=== PATIENT | male | born 1975 | race Caucasian/White ===

== ENCOUNTER 2024-07-25 07:55 | Outpatient (RCR) | payer MEDICAID, SELFPAY ==
[2024-07-25 08:22] VITALS: BP 101/52; PULSE 117; RESP 18; TEMP 36.1; BMI 29.4
--- NOTE | 2024-07-25 10:00 | HP.PCM_ITS ---
History of Present Illness Date of Service: 07/25/24 Chief Complaint: Left foot wound History of Wound: Left foot wound Progress of Wound: Mr. Jefferson is a 49-year-old diabetic male seen at the wound care center today for follow-up evaluation for full-thickness wound to the plantar aspect of the left great toe. Patient was seen in the emergency room on 819 where he was diagnosed with a diabetic foot ulceration due to elevated blood sugar. Patient was mid to the hospital for IV antibiotics. He has since been discharged. He did get consulted by medicine who ordered a x-ray and MRI that are both negative for osteomyelitis at this time. Patient is a diabetic and is uncontrolled. His blood sugar today in office was 246 mg/dL. His A1c is 10.1. Patient is not well educated on blood sugar control. He does see an program director/music director but has not seen them for a long period of time. Blood sugar medication is managed by primary. Educated the patient on the importance of maintaining normal blood sugar. Treatment thus far has been at home he is presenting to wound care center today for evaluation and treatment. Denies trauma. Denies constitutional symptoms. Other pain complaints at this time. [facility] Home Medications ?Medication ?Instructions ?Recorded ?Last Taken ?Type blood-glucose meter,continuous 07/25/24 Unknown History (Dexcom G6 Supervisor [employer]) blood-glucose sensor (Dexcom G7 07/25/24 Unknown History Sensor device) blood-glucose transmitter (Dexcom 07/25/24 Unknown History G6 Transmitter device) cephalexin 500 mg capsule 500 mg PO 07/25/24 Unknown History doxycycline hyclate 100 mg tablet 100 mg PO BID 07/25/24 Unknown History gabapentin 300 mg capsule 300 mg PO BID 07/25/24 Unknown History glipizide 5 mg tablet 5 mg PO BID 07/25/24 Unknown History insulin aspart U-100 100 unit/mL 5 unit subcut TID 07/25/24 Unknown History (3 mL) subcutaneous pen (Novolog FlexPen U-100 Insulin aspart) insulin glargine 100 unit/mL (3 24 unit subcut DAILY 07/25/24 Unknown History mL) subcutaneous pen (Lantus Solostar U-100 Insulin) lisinopril 20 mg tablet 20 mg PO DAILY 07/25/24 Unknown History metoprolol succinate 50 mg 50 mg PO DAILY 07/25/24 Unknown History tablet,extended release 24 hr sertraline 25 mg tablet 25 mg PO DAILY 07/25/24 Unknown History Allergy/AdvReac Type Severity Reaction Status Date / Time No Known Allergies Allergy Verified 07/25/24 08:19 Vital Signs Vital Signs Vital Signs: 07/25/24 08:22 Temperature 97.0 F L Temperature Source Temporal Pulse Rate 117 H Respiratory Rate 18 Blood Pressure 101/52 L Blood Pressure Mean 68 Blood Pressure Source Monitor Blood Pressure Position Semi-Fowlers Blood Pressure Location Left Arm Oxygen Delivery Method Room Air Weight Weight: 103.873 kg Body Mass Index (BMI) 29.4 Physical Exam Narrative Vascular: DP and PT pulse are palpable to the left lower extremity. CFT is brisk. Nonblanchable erythema appreciated to the first metatarsal phalangeal joint at the level of the hallux. Mild proximal streaking is noted. Skin te mperature gradient is warm to warm from proximal ankle to distal digit. Mild focal increase appreciated to the left great toe. Neurological: Light touch intact. Protective sensation is absent. Dermatological: Full-thickness ulceration with probe to bone measuring 0.8 x 0.8 x 0.9 cm to the plantar left hallux. No drainage. Mild malodor. Wound is stable. There is evidence of nonblanchable erythema which has mild proximal streaking noted. Excision debridement down to and including subcutaneous tissue, fascia, muscle and bone to the plantar left hallux with a number 3 mm dermal curette without incident. Predebridement measurement was 0.6 x 0.6 x 0.4 cm. Postdebridement measurement is 0.8 x 0.8 x 0.9 cm. Musculoskeletal: No pain with palpation to the full-thickness wound or with ran ge of motion to the left big toe joint. No pain with calf pressure. Const alert, oriented x3 and no apparent distress Debridement Note Debridement Note Debridement Free Text: Excision debridement down to and including subcutaneous tissue, fascia, muscle and bone to the plantar left hallux with a number 3 mm dermal curette without incident. Predebridement measurement was 0.6 x 0.6 x 0.4 cm. Postdebridement measurement is 0.8 x 0.8 x 0.9 cm. Post-Debridement Measurements and Additional Note: Post-Debridement Measurements/Treatment WC - Nurse 1 - General Ulcer Assessment Start: 07/25/24 08:14 Freq: Status: Active Protocol: WC.LOWEXT Activity Type Activity Date Activity User E-sign Co-sign Detail Recorded Client Recorded Date Recorded By Document 07/25/24 08:22 MIGEL [id number] 07/25/24 08:32 07/25/24 08:22 - Today's Visit Information Type of service Initial Visit Arrival Mode Ambulatory Patient Identification Verified (Name & Yes ) Height and Weight Height 6 ft 2 in Weight 103.873 kg Weight in Pounds 229.0 lbs Weight Measurement Method Estimated by Patient Body Mass Index (BMI) 29.4 BMI Classification Overweight BSA - Norman 2.30 Vital Signs Temperature (97.8 F-99.1 F) 97.0 F L Temperature Source Temporal Pulse Rate (60-100) 117 H Pulse Location Monitor Respiratory Rate (12-18) 18 Respiratory rate source Observation Oxygen Delivery Method Room Air Blood Pressure (90/60-120/80) 101/52 L Blood Pressure Mean 68 Source Monitor Position Semi-Fowlers Blood Pressure Location Left Arm History Since Last Visit- (Skip if this is Patient's initial visit) Left Footwear Regular Shoe Right Footwear Regular Shoe Pain Scale: 0-10 Numeric Is Patient Pain Free? Yes Communication Assessment Preferred language Czech Research Engineer Required No Able to Read Yes Able to Write Yes Communication Tools None Right Hearing Abillity Normal Left Hearing Abillity Normal Visual Assistive Devices Glasses Teaching Assessment Preferences Verbal,Written, Demonstration Barriers to Learning None Readiness To Learn Excellent Willingness to Engage in Self Management High Activies Readiness to Engage in Self Management High Activities Anxiety Level Calm Cooperation Cooperative Perception Coherent Interest in Health Problem Asks Questions Education Importance Acknowledges Need Does Patient Smoke tobacco or other Yes substances Is Patient Diabetic Yes Functional Assessment Recent Decline in Ability to Perform Denies Any Declines Culture/Pentecostalism/Pit Manager Cultural/Pentecostalism Needs that may affect No Treatment Plan Would you allow our hospital videogame designer to No meet you for the purpose of spiritual/ emotional support? Pit Manager to contact place of presybeterian No WC - Nurse 1 - General Ulcer Measurement Start: 07/25/24 08:14 Freq: Status: Active Protocol: Activity Type Activity Date Activity User E-sign Co-sign Detail Recorded Client Recorded Date Recorded By Document 07/25/24 08:22 MIGEL [id number] 07/25/24 08:32 07/25/24 08:22 Wound Center Nurse 1 #1 LT PLANTAR -Current Size (cm) - Length 1 -Current Size (cm) - Width 0.3 -Current Size (cm) - Depth 0.4 -Total Square Cm 0.3 -Date of Last Picture (Recall this 07/25/24 field) -Exudate Amt Small -Exudate Type Serosanguineous -Wound Margin Distinct, Outline Attached -Granulation Amt Small (1-33%) -Granulation Quality Red -Necrosis Amt Large (67-100%) -Necrotic Tissue Type Eschar -Texture (Smliey-wound Skin Appearance) Assessed, Localized Edema -Moisture (Smiley-wound Skin Appearance) Assessed -Color (Smiley-wound Skin Appearance) Assessed, Erythema -Temperature (Smiley-wound Skin No Abnormality Appearance) (Pt Warm) -Tenderness on Palpation (Smiley-wound No Skin Appearance) -Ulcer Cleansing Rinsed/ Irrigated with Saline -Foul Odor after Cleansing No -Anesthetic Used 5% Lidocaine Gel Left Calf (cm) 39.2 Left Ankle (cm) 22.5 WC - Nurse 2 - General Ulcer CM Notes Start: 07/25/24 08:14 Freq: Status: Active Protocol: Activity Type Activity Date Activity User E-sign Co-sign Detail Recorded Client Recorded Date Recorded By Document 07/25/24 08:45 [id number] 07/25/24 08:55 JF 07/25/24 08:45 Wound Center Nurse 2 #1 LT PLANTAR -Time 08:51 -Correct Patient Yes -Correct Side, Site, Position Yes -Correct Procedure Yes -Procedure Performed Yes -Type of Procedure Debridement -Clinical Debridement Bone -Tissue Removed Slough -Post Debridement (cm) - Length 0.8 -Post Debridement (cm) - Width 0.8 -Post Debridement (cm) - Depth 0.9 -Total Square (Post) (cm) 0.64 -Area of Debridement (cm) - Length 0.8 -Area of Debridement (cm) - Width 0.8 -Total Square (Area) (cm) 0.64 -Tunneling No -Undermining/Tunneling No -Circular Undermining No -Wound/Ulcer Outcome Not Healed -Ulcer Cleansing Rinsed/ Irrigated with Saline -Foul Odor after Cleansing No -Bioengineered Tissue No -Bleeding Controlled with Pressure -Treatment Response Procedure Tolerated Well -Offloading Yes -Type of Offloading Surgical Shoe -Debridement - Bone, 1st 20sq cm Yes Pain Scale: 0-10 Numeric Is Patient Pain Free? Yes - Nurse 3 - General Ulcer D/C NN Start: 07/25/24 08:14 Freq: Status: Active Protocol: Activity Type Activity Date Activity User E-sign Co-sign Detail Recorded Client Recorded Date Recorded By Document 07/25/24 09:06 [id number] 07/25/24 09:07 07/25/24 09:06 Wound Care Center Nurse 3 #1 LT PLANTAR -Ulcer Cleansing Not Cleansed -Foul Odor after Cleansing No -Primary Dressing Applied Nugauze, Iodoform 1/4in -Primary Dressing Covered/Secured with Dry Gauze & Roll Gauze, Secured with Tape -Nugauze, Iodoform 1/4in 1 Pain Scale: 0-10 Numeric Is Patient Pain Free? Yes Teaching: Wound Center Dressing wound -Person Taught Patient -Teaching Method Discussion, Demonstration -Response to teaching Verbalize Understanding WC - Visit Discharge Discharge Condition Stable Ambulatory Status Ambulatory Transportation Private Auto Clinical Summary of Care Provided Yes Assessment/Plan Assessment/Plan (1) Non-pressure chronic ulcer of other part of left foot with necrosis of bone: CODE(S): L97.524 - Non-pressure chronic ulcer of other part of left foot with necrosis of bone PLAN: Patient was examined and evaluated. All findings were discussed with the patient. All questions were answered to the patient's satisfaction. Excision debridement down to and including subcutaneous tissue, fascia, muscle and bone to the plantar left hallux with a number 3 mm dermal curette without incident. Predebridement measurement was 0.6 x 0.6 x 0.4 cm. Postdebridement measurement is 0.8 x 0.8 x 0.9 cm. Left extremities were cleaned and patted dry. Culture was taken. The ulceration was dressed with iodoform packing dry sterile dressing and compression wrap. Patient was dispensed from the hospital on oral antibiotics doxycycline and Keflex will take them as written. We will see if antibiotics need to be adjusted when culture returns. I did educate the patient and stressed the need for control blood sugar as he is at risk for an amputation. He does have a past history of right foot amputation and as at a 50-50 risk of losing the left great toe if his blood sugar is not controlled. I did educate him that he lives at 200+ blood sugar with A1c of 10.1% which she was understanding of. After this discussion with the patient he will do his best to maintain a normal walking blood sugar between 100-150 mg/dL. Patient educated on signs and symptoms of worsening infection and where to report at [facility] ER to have Dr. Archibald consulted for intervention. Follow-up at the wound care center with Dr. Archibald in 1 week. (2) Cellulitis of left toe: CODE(S): L03.032 - Cellulitis of left toe (3) Chronic painful diabetic polyneuropathy: CODE(S): E11.42 - Type 2 diabetes mellitus with diabetic polyneuropathy
--- NOTE | 2024-07-26 08:56 | WC ---
PHOTO LT PLANTAR 07/25/24
== END 2024-07-28 23:59 | disposition home or self-care (01) ==
LOC: WC 07:55
PROVIDERS: PCP Student in an Organized Health Care Education/Training Program; Referring Provider Student in an Organized Health Care Education/Training Program; Visit Provider Podiatrist Foot & Ankle Surgery
DX: E11.621 Type 2 diabetes mellitus with foot ulcer (principal); L97.524 Non-pressure chronic ulcer of other part of left foot with necrosis of bone; E11.65 Type 2 diabetes mellitus with hyperglycemia; Z79.4 Long term (current) use of insulin; E11.42 Type 2 diabetes mellitus with diabetic polyneuropathy; Z79.84 Long term (current) use of oral hypoglycemic drugs; L03.032 Cellulitis of left toe
CPT/HCPCS: G0463; 11044; 87070; 87075; 87077; 87186; 87205; 99204; 99214

== ENCOUNTER 2024-08-27 08:15 | Outpatient (RCR) | payer MEDICAID, SELFPAY ==
[2024-07-29 00:56] VITALS: BP 101/52; PULSE 117; RESP 18; TEMP 36.1; BMI 29.4
[2024-08-01 15:13] VITALS: BP 127/85; PULSE 79; RESP 16; TEMP 36.3; BMI 29.4
--- NOTE | 2024-08-01 16:34 | PN.PCM_ITS ---
History of Present Illness Date of Service: 08/01/24 Chief Complaint: Left foot wound History of Wound: Left foot wound Subjective Subjective Mr. Jefferson is a 49-year-old diabetic male presenting to wound care center today for follow-up evaluation of full-thickness wound to the plantar aspect of left great toe. He has finished his antibiotics. He admits to some peeling skin but still redness is present. He has been doing dressing changes. Has been off work for a little bit due to concern for getting oil on his foot and causing a worse infection. Blood sugar well-controlled. Denies trauma. Denies constitutional symptoms. No other pedal complaints at this time. Objective Data Objective Data Vital Signs: Vital Signs Temp Pulse Resp BP O2 Del Method 97.4 F L 79 16 127/85 H Room Air 08/01/24 15:13 08/01/24 15:13 08/01/24 15:13 08/01/24 15:13 08/01/24 15:13 Oxygen Delivery Method Room Air Weight: 103.873 kg Body Mass Index (BMI) 29.4 Physical Exam Narrative Vascular: DP and PT pulse are palpable to the left lower extremity. CFT is brisk. Nonblanchable erythema appreciated to the first metatarsal phalangeal joint at the level of the hallux. Mild proximal streaking is noted, improving. Skin temperature gradient is warm to warm from proximal ankle to distal digit. Mild focal increase appreciated to the left great toe. Neurological: Light touch intact. Protective sensation is absent. Dermatological: Full-thickness ulceration with probe to tendon 0.8 x 0.7 x 1.3 cm to the plantar left hallux. Again wound shows evidence of probe to tendon. There is some slight undermining towards the proximal foot approximately 0.5 cm. Erythema present but improving as well as being blanchable. Excision debridement down to and including subcutaneous tissue, fascia, to the plantar left hallux with a number 3 mm dermal curette without incident. Predebridement measurement was 0.7 x 0.6 x 0.0.8 cm. Postdebridement measurement is 0.8 x 0.7 x 1.3 cm Musculoskeletal: No pain with palpation to the full-thickness wound or with range of motion to the left big toe joint. No pain with calf pressure. Debridement Note Debridement Note Debridement Free Text: Excision debridement down to and including subcutaneous tissue, fascia, to the plantar left hallux with a number 3 mm dermal curette without incident. Predebridement measurement was 0.7 x 0.6 x 0.0.8 cm. Postdebridement measurement is 0.8 x 0.7 x 1.3 cm Post-Debridement Measurements and Additional Note: Post-Debridement Measurements/Treatment - Nurse 1 - General Ulcer Assessment Start: 08/01/24 15:13 Freq: Status: Active Protocol: CHARMAINE Activity Type Activity Date Activity User E-sign Co-sign Detail Recorded Client Recorded Date Recorded By Document 08/01/24 15:13 [facility] [id number] 08/01/24 15:18 [facility] 08/01/24 15:13 WC - Today's Visit Information Type of service Follow-up Visit (Physician/DOMESTIC CLEANER ) Arrival Mode Ambulatory Transfer Assistance None Patient Identification Verified (Name & Yes ) Patient Requires Transmission-Based No Precautions Height and Weight Body Mass Index (BMI) 29.4 BMI Classification Overweight Vital Signs Temperature (97.8 F-99.1 F) 97.4 F L Temperature Source Temporal Pulse Rate (60-100) 79 Pulse Location Monitor Respiratory Rate (12-18) 16 Respiratory rate source Observation Oxygen Delivery Method Room Air Blood Pressure (90/60-120/80) 127/85 H Blood Pressure Mean (mm Hg) 99 Source Monitor Position Sitting Blood Pressure Location Left Arm History Since Last Visit- (Skip if this is Patient's initial visit) Have you changed medications since your Yes last visit? Any new allergies or adverse reactions No Had a fall/change in ADL's that may No increase risk of falls Signs or symptoms of abuse and/or No neglect since last visit Have you been in the hospital since your No last visit? Has dressing in place as prescribed Yes Has compression in place as prescribed N/A Has offloadiing in place as prescribed Yes Experienced any changes in pain level or No management Left Footwear Surgical Shoe with pressure relief insole Right Footwear Regular Shoe Pain Scale: 0-10 Numeric Is Patient Pain Free? Yes - Nurse 1 - General Ulcer Measurement Start: 08/01/24 15:13 Freq: Status: Active Protocol: Activity Type Activity Date Activity User E-sign Co-sign Detail Recorded Client Recorded Date Recorded By Document 08/01/24 15:13 [facility] [id number] 08/01/24 15:18 BMF 08/01/24 15:13 Wound Center Nurse 1 #1 LT PLANTAR -Combined with other wound No -Current Size (cm) - Length 0.7 -Current Size (cm) - Width 0.5 -Current Size (cm) - Depth 0.7 -Total Square Cm 0.35 -Date of Last Picture (Recall this 08/01/24 field) -Photo Taken Yes -Tunneling No -Undermining/Tunneling No -Circular Undermining No -Exudate Amt Medium -Exudate Type Serosanguineous -Wound Margin Distinct, Outline Attached -Granulation Amt Large (67-100%) -Granulation Quality Cornucopia -Slough/Fibrin Yes -Necrosis Amt Small (1-33%) -Necrotic Tissue Type Adherent Slough -Texture (Smiley-wound Skin Appearance) Assessed, Localized Edema ,Scarring -Moisture (Smiley-wound Skin Appearance) Assessed -Color (Smiley-wound Skin Appearance) Assessed, Erythema -Temperature (Smiley-wound Skin No Abnormality Appearance) (Pt Warm) -Tenderness on Palpation (Smiley-wound No Skin Appearance) -Ulcer Cleansing Rinsed/ Irrigated with Saline -Foul Odor after Cleansing No -Anesthetic Used 5% Lidocaine Gel WC - Nurse 2 - General Ulcer CM Notes Start: 08/01/24 15:13 Freq: Status: Active Protocol: Activity Type Activity Date Activity User E-sign Co-sign Detail Recorded Client Recorded Date Recorded By Document 08/01/24 15:38 [id number] 08/01/24 15:40 08/01/24 15:38 Wound Center Nurse 2 -Time 15:38 -Correct Patient Yes -Correct Side, Site, Position Yes -Correct Procedure Yes -Procedure Performed Yes -Type of Procedure Debridement -Clinical Debridement Muscle / Fascia -Tissue Removed Muscle,Fascia -Post Debridement (cm) - Length 0.8 -Post Debridement (cm) - Width 0.7 -Post Debridement (cm) - Depth 1.3 -Total Square (Post) (cm) 0.56 -Area of Debridement (cm) - Length 0.8 -Area of Debridement (cm) - Width 0.7 -Total Square (Area) (cm) 0.56 -Tunneling No -Undermining/Tunneling No -Circular Undermining No -Wound/Ulcer Outcome Not Healed -Ulcer Cleansing Rinsed/ Irrigated with Saline -Foul Odor after Cleansing No -Bioengineered Tissue No -Bleeding Controlled with Pressure -Treatment Response Procedure Tolerated Well -Offloading Yes -Type of Offloading Surgical Shoe -Debridement - Muscle / Fascia, 1st Yes 20sq cm Pain Scale: 0-10 Numeric Is Patient Pain Free? Yes - Nurse 3 - General Ulcer D/C NN Start: 08/01/24 15:13 Freq: Status: Active Protocol: Activity Type Activity Date Activity User E-sign Co-sign Detail Recorded Client Recorded Date Recorded By Document 08/01/24 15:52 DL [id number] 08/01/24 15:54 DL 08/01/24 15:52 Wound Care Center Nurse 3 #1 LT PLANTAR -Ulcer Cleansing Rinsed/ Irrigated with Saline -Foul Odor after Cleansing No -Primary Dressing Applied Nugauze, Iodoform 1/4in -Primary Dressing Covered/Secured with Dry Gauze & Roll Gauze, Secured with Tape -Nugauze, Iodoform 1/4in 1 Treatment Response Procedure Tolerated Well Pain Scale: 0-10 Numeric Is Patient Pain Free? Yes - Visit Discharge Discharge Condition Stable Ambulatory Status Ambulatory Transportation Private Auto Assessment/Plan Assessment/Plan (1) Non-pressure chronic ulcer of other part of left foot with necrosis of muscle: CODE(S): L97.523 - Non-pressure chronic ulcer of other part of left foot with necrosis of muscle PLAN: Patient was examined and evaluated. All findings were discussed with the patient. All questions were answered to the patient's satisfaction. Excision debridement down to and including subcutaneous tissue, fascia, to the plantar left hallux with a number 3 mm dermal curette without incident. Predebridement measurement was 0.7 x 0.6 x 0.0.8 cm. Postdebridement measurement is 0.8 x 0.7 x 1.3 cm. The left foot was wiped clean and patted dry. The area was dressed with Betadine paint, dry sterile dressing and compression wrap. Educated patient to be weightbearing as tolerated until follow-up. Patient will given a work note to be dismissed until Tuesday. Review of the patient's cultures show evidence of 2 microbes that grew that were not covered under his Keflex and doxycycline. The patient will be placed on 600 mg of linezolid twice daily for 2 weeks. Will need a preauthorization through his insurance. Long discussion with the patient regarding the risk for possible amputation due to infection possibly getting worse which she was understanding of. It was conveyed to the patient that we will do everything in our power to keep his left great toe but due to his diabetes and the extent of the infection we will have to take this on as a week by week basis with new oral antibiotics. Follow-up at the wound care center with Dr. Archibald in 1 week. (2) Cellulitis of left toe: CODE(S): L03.032 - Cellulitis of left toe (3) Chronic painful diabetic polyneuropathy: CODE(S): E11.42 - Type 2 diabetes mellitus with diabetic polyneuropathy
[2024-08-08 14:56] VITALS: BP 152/80; PULSE 93; RESP 18; TEMP 36.2; BMI 29.4
--- NOTE | 2024-08-08 16:41 | PCM.WC.PN ---
History of Present Illness Date of Service: 08/08/24 Chief Complaint: Left foot wound History of Wound: Left foot wound Subjective Subjective Mr. Jefferson is a 49-year-old diabetic male presenting to wound care center today for follow-up evaluation of full-thickness wound to the plantar aspect of left great toe. Patient still waiting for authorization for linezolid antibiotics. He has been doing dressing changes. Patient is now on short-term disability for 13 weeks. Blood sugar well-controlled. Denies trauma. Denies constitutional symptoms. No other pedal complaints at this time. Objective Data Objective Data Vital Signs: Vital Signs Temp Pulse Resp BP O2 Del Method 97.2 F L 93 18 152/80 H Room Air 08/08/24 14:56 08/08/24 14:56 08/08/24 14:56 08/08/24 14:56 08/08/24 14:56 Oxygen Delivery Method Room Air Weight: 103.873 kg Body Mass Index (BMI) 29.4 Physical Exam Narrative Vascular: DP and PT pulse are palpable to the left lower extremity. CFT is brisk. Nonblanchable erythema appreciated to the first metatarsal phalangeal joint at the level of the hallux. Mild proximal streaking is noted, improving. Skin temperature gradient is warm to warm from proximal ankle to distal digit. Mild focal increase appreciated to the left great toe. Neurological: Light touch intact. Protective sensation is absent. Dermatological: Full-thickness ulceration with probe to tendon 0.8 x 0.7 x 1.4 cm to the plantar left hallux. Again wound shows evidence of probe to muscle. There is some slight undermining towards the proximal foot, improving. Erythema present but improving as well as being blanchable. Excision debridement down to and including subcutaneous tissue, fascia and muscle to the plantar left hallux with a number 3 mm dermal curette without incident. Predebridement measurement was 0.7 x 0.6 x 1.2 cm. Postdebridement measurement is 0.8 x 0.7 x 1.4 cm Musculoskeletal: No pain with palpation to the full-thickness wound or with range of motion to the left big toe joint. No pain with calf pressure. Debridement Note Debridement Note Debridement Free Text: Excision debridement down to and including subcutaneous tissue, fascia and muscle to the plantar left hallux with a number 3 mm dermal curette without incident. Predebridement measurement was 0.7 x 0.6 x 1.2 cm. Postdebridement measurement is 0.8 x 0.7 x 1.4 cm Post-Debridement Measurements and Additional Note: Post-Debridement Measurements/Treatment WC - Nurse 1 - General Ulcer Assessment Start: 08/01/24 15:13 Freq: Status: Active Protocol: WC.LOWEXT Activity Type Activity Date Activity User E-sign Co-sign Detail Recorded Client Recorded Date Recorded By Document 08/01/24 15:13 [facility] [id number] 08/01/24 15:18 [facility] Document 08/08/24 14:56 KW [id number] 08/08/24 15:01 KW 08/01/24 08/08/24 15:13 14:56 WC - Today's Visit Information Type of service Follow-up Visit Follow-up Visit (Physician/JEWEL HOLE CORNERER (Physician/JEWEL HOLE CORNERER ) ) Arrival Mode Ambulatory Ambulatory Transfer Assistance None Patient Identification Verified (Name & Yes Yes ) Patient Requires Transmission-Based No Precautions Height and Weight Body Mass Index (BMI) 29.4 29.4 BMI Classification Overweight Overweight Vital Signs Temperature (97.8 F-99.1 F) 97.4 F L 97.2 F L Temperature Source Temporal Temporal Pulse Rate (60-100) 79 93 Pulse Location Monitor Monitor Respiratory Rate (12-18) 16 18 Respiratory rate source Observation Observation Oxygen Delivery Method Room Air Room Air Blood Pressure (90/60-120/80) 127/85 H 152/80 H Blood Pressure Mean (mm Hg) 99 104 Source Monitor Monitor Position Sitting Semi-Fowlers Blood Pressure Location Left Arm Left Arm History Since Last Visit- (Skip if this is Patient's initial visit) Have you changed medications since your Yes No last visit? Any new allergies or adverse reactions No No Had a fall/change in ADL's that may No No increase risk of falls Signs or symptoms of abuse and/or No No neglect since last visit Have you been in the hospital since your No No last visit? Has dressing in place as prescribed Yes Yes Has compression in place as prescribed N/A Yes Has offloadiing in place as prescribed Yes Yes Experienced any changes in pain level or No No management Left Footwear Surgical Shoe Surgical Shoe with pressure with pressure relief insole relief insole Right Footwear Regular Shoe Regular Shoe Pain Scale: 0-10 Numeric Is Patient Pain Free? Yes No lt foot -Description Sharp - Nurse 1 - General Ulcer Measurement Start: 08/01/24 15:13 Freq: Status: Active Protocol: Activity Type Activity Date Activity User E-sign Co-sign Detail Recorded Client Recorded Date Recorded By Document 08/01/24 15:13 [facility] [id number] 08/01/24 15:18 [facility] Document 08/08/24 14:56 [id number] 08/08/24 15:01 08/01/24 08/08/24 15:13 14:56 Wound Center Nurse 1 #1 LT PLANTAR -Combined with other wound No -Current Size (cm) - Length 0.7 0.7 -Current Size (cm) - Width 0.5 0.8 -Current Size (cm) - Depth 0.7 1.3 -Total Square Cm 0.35 0.56 -Date of Last Picture (Recall this 08/01/24 08/08/24 field) -Photo Taken Yes -Tunneling No -Undermining/Tunneling No -Circular Undermining No -Exudate Amt Medium Small -Exudate Type Serosanguineous Serosanguineous -Wound Margin Distinct, Distinct, Outline Outline Attached Attached -Granulation Amt Large (67-100%) Large (67-100%) -Granulation Quality [place] -Slough/Fibrin Yes -Necrosis Amt Small (1-33%) -Necrotic Tissue Type Adherent Slough -Texture (Smiley-wound Skin Appearance) Assessed, Assessed,Callus Localized Edema ,Scarring -Moisture (Smiley-wound Skin Appearance) Assessed Assessed -Color (Smiley-wound Skin Appearance) Assessed, Assessed Erythema -Temperature (Smiley-wound Skin No Abnormality No Abnormality Appearance) (Pt Warm) (Pt Warm) -Tenderness on Palpation (Smiley-wound No No Skin Appearance) -Ulcer Cleansing Rinsed/ Rinsed/ Irrigated with Irrigated with Saline Saline -Foul Odor after Cleansing No No -Anesthetic Used 5% Lidocaine 5% Lidocaine Gel Gel - Nurse 2 - General Ulcer CM Notes Start: 08/01/24 15:13 Freq: Status: Active Protocol: Activity Type Activity Date Activity User E-sign Co-sign Detail Recorded Client Recorded Date Recorded By Document 08/01/24 15:38 [id number] 08/01/24 15:40 Document 08/08/24 15:15 [id number] 08/08/24 15:17 JF 08/01/24 08/08/24 15:38 15:15 Wound Center Nurse 2 #1 LT PLANTAR -Time 15:38 15:16 -Correct Patient Yes Yes -Correct Side, Site, Position Yes Yes -Correct Procedure Yes Yes -Procedure Performed Yes Yes -Type of Procedure Debridement Debridement -Clinical Debridement Muscle / Fascia Muscle / Fascia -Tissue Removed Muscle,Fascia Muscle,Fascia -Post Debridement (cm) - Length 0.8 0.8 -Post Debridement (cm) - Width 0.7 0.7 -Post Debridement (cm) - Depth 1.3 1.4 -Total Square (Post) (cm) 0.56 0.56 -Area of Debridement (cm) - Length 0.8 0.8 -Area of Debridement (cm) - Width 0.7 0.7 -Total Square (Area) (cm) 0.56 0.56 -Tunneling No No -Undermining/Tunneling No No -Circular Undermining No No -Wound/Ulcer Outcome Not Healed Not Healed -Ulcer Cleansing Rinsed/ Rinsed/ Irrigated with Irrigated with Saline Saline -Foul Odor after Cleansing No No -Bioengineered Tissue No No -Bleeding Controlled with Pressure Pressure -Treatment Response Procedure Procedure Tolerated Well Tolerated Well -Offloading Yes Yes -Type of Offloading Surgical Shoe Surgical Shoe -Debridement - Muscle / Fascia, 1st Yes Yes 20sq cm Pain Scale: 0-10 Numeric Is Patient Pain Free? Yes Yes - Nurse 3 - General Ulcer D/C NN Start: 08/01/24 15:13 Freq: Status: Active Protocol: Activity Type Activity Date Activity User E-sign Co-sign Detail Recorded Client Recorded Date Recorded By Document 08/01/24 15:52 DL [id number] 08/01/24 15:54 DL Document 08/08/24 15:37 [facility] [id number] 08/08/24 15:37 [facility] 08/01/24 08/08/24 15:52 15:37 Wound Care Center Nurse 3 #1 LT PLANTAR -Ulcer Cleansing Rinsed/ Rinsed/ Irrigated with Irrigated with Saline Saline -Foul Odor after Cleansing No No -Primary Dressing Applied Nugauze, Aquacel AG 2x2 Iodoform 1/4in -Primary Dressing Covered/Secured with Dry Gauze & Dry Gauze & Roll Gauze, Roll Gauze, Secured with Secured with Tape Tape -MOLOMEel AG 2x2 1 -Nugauze, Iodoform 1/4in 1 Treatment Response Procedure Procedure Tolerated Well Tolerated Well Pain Scale: 0-10 Numeric Is Patient Pain Free? Yes Yes WC - Visit Discharge Discharge Condition Stable Stable Ambulatory Status Ambulatory Ambulatory Transportation Private Auto Private Auto Assessment/Plan Assessment/Plan (1) Non-pressure chronic ulcer of other part of left foot with necrosis of muscle: CODE(S): L97.523 - Non-pressure chronic ulcer of other part of left foot with necrosis of muscle PLAN: Patient was examined and evaluated. All findings were discussed with the patient. All questions were answered to the patient's satisfaction. Excision debridement down to and including subcutaneous tissue, fascia and muscle to the plantar left hallux with a number 3 mm dermal curette without incident. Predebridement measurement was 0.7 x 0.6 x 1.2 cm. Postdebridement measurement is 0.8 x 0.7 x 1.4 cm Due to the delay in authorization for linezolid antibiotic. The patient will be placed on Levaquin 1 pill daily for the next 2 weeks. Educated the patient that we will sign a note for his work for him to be off for the next 13 weeks and reevaluate at the end of that time. All paperwork will be filled out once received at the wound care center private office. Patient will continue with dressing changes as discussed. We will begin authorization for an MRI due to nonhealing chronic ulceration to the left hallux with concerns of osteomyelitis, for surgical planning. Follow-up at the wound care center with Dr. Archibald in 1 week. (2) Cellulitis of left toe: CODE(S): L03.032 - Cellulitis of left toe (3) Chronic painful diabetic polyneuropathy: CODE(S): E11.42 - Type 2 diabetes mellitus with diabetic polyneuropathy (4) Osteomyelitis of toe of left foot: CODE(S): M86.9 - Osteomyelitis, unspecified
[2024-08-15 08:11] VITALS: BP 134/94; PULSE 82; RESP 16; TEMP 35.8; BMI 29.4
--- NOTE | 2024-08-15 08:35 | PCM.WC.PN ---
History of Present Illness Date of Service: 08/15/24 Chief Complaint: Left foot wound History of Wound: Left foot wound Subjective Subjective Mr. Jefferson is a 49-year-old diabetic male presenting to wound care center today for follow-up evaluation of left hallux full-thickness wound. Patient is on his oral antibiotic taken as written. He is getting some diarrhea but overall improving. He admits the redness is improving. Denies any pain to the left foot. Blood sugar well-controlled. Denies trauma. Denies constitutional symptoms. No other pedal complaints at this time. Objective Data Objective Data Vital Signs: Vital Signs Temp Pulse Resp BP O2 Del Method 96.5 F L 82 16 134/94 H Room Air 08/15/24 08:11 08/15/24 08:11 08/15/24 08:11 08/15/24 08:11 08/15/24 08:11 Oxygen Delivery Method Room Air Weight: 103.873 kg Body Mass Index (BMI) 29.4 Physical Exam Narrative Neurovascular status is unchanged his previous visit. Evidence of improved erythema to the left foot at the level of the left hallux. Erythema is blanchable. Skin temperature gradient is warm to warm from proximal ankle to distal digit. No focal increase is appreciated. Full-thickness wound to the plantar aspect of the left hallux measuring 0.9 x 0.7 x 1 1.3 cm. Positive probe to bone. No active drainage noted. No pain with calf pressure. Excisional debridement down to and including subcutaneous tissue, fascia, muscle and bone with a number 3 mm dermal curette to the left plantar ulceration at the level of the hallux. Predebridement measurement was 0.8 x 0.6 x 1.0 cm. Postdebridement measurement is 0.9 x 0.7 x 1.3 cm. Debridement Note Debridement Note Debridement Free Text: Excisional debridement down to and including subcutaneous tissue, fascia, muscle and bone with a number 3 mm dermal curette to the left plantar ulceration at the level of the hallux. Predebridement measurement was 0.8 x 0.6 x 1.0 cm. Postdebridement measurement is 0.9 x 0.7 x 1.3 cm. Post-Debridement Measurements and Additional Note: Post-Debridement Measurements/Treatment WC - Nurse 1 - General Ulcer Assessment Start: 08/01/24 15:13 Freq: Status: Active Protocol: WC.LOWEXT Activity Type Activity Date Activity User E-sign Co-sign Detail Recorded Client Recorded Date Recorded By Document 08/01/24 15:13 [facility] [id number] 08/01/24 15:18 [facility] Document 08/08/24 14:56 [id number] 08/08/24 15:01 KW Document 08/15/24 08:11 [id number] 08/15/24 08:16 08/01/24 08/08/24 08/15/24 15:13 14:56 08:11 - Today's Visit Information Type of service Follow-up Visit Follow-up Visit Follow-up Visit (Physician/GLUER MACHINE SETUP OPERATOR (Physician/GLUER MACHINE SETUP OPERATOR (Physician/GLUER MACHINE SETUP OPERATOR ) ) ) Arrival Mode Ambulatory Ambulatory Ambulatory Transfer Assistance None None Patient Identification Verified (Name & Yes Yes Yes ) Patient Requires Transmission-Based No No Precautions Height and Weight Body Mass Index (BMI) 29.4 29.4 29.4 BMI Classification Overweight Overweight Overweight Vital Signs Temperature (97.8 F-99.1 F) 97.4 F L 97.2 F L 96.5 F L Temperature Source Temporal Temporal Temporal Pulse Rate (60-100) 79 93 82 Pulse Location Monitor Monitor Monitor Respiratory Rate (12-18) 16 18 16 Respiratory rate source Observation Observation Observation Oxygen Delivery Method Room Air Room Air Room Air Blood Pressure (90/60-120/80) 127/85 H 152/80 H 134/94 H Blood Pressure Mean (mm Hg) 99 104 107 Source Monitor Monitor Monitor Position Sitting Semi-Fowlers Sitting Blood Pressure Location Left Arm Left Arm Right Arm History Since Last Visit- (Skip if this is Patient's initial visit) Have you changed medications since your Yes No No last visit? Any new allergies or adverse reactions No No No Had a fall/change in ADL's that may No No No increase risk of falls Signs or symptoms of abuse and/or No No No neglect since last visit Have you been in the hospital since your No No No last visit? Has dressing in place as prescribed Yes Yes Yes Has compression in place as prescribed N/A Yes N/A Has offloadiing in place as prescribed Yes Yes Yes Experienced any changes in pain level or No No No management Left Footwear Surgical Shoe Surgical Shoe Surgical Shoe with pressure with pressure with pressure relief insole relief insole relief insole Right Footwear Regular Shoe Regular Shoe Regular Shoe Pain Scale: 0-10 Numeric Is Patient Pain Free? Yes No No lt foot -Description Sharp Aching -Intensity 2 -Duration (hours) Chronic -Pain Behavior No Change in Behavior -Alleviating Factors/Interventions Will continue to monitor WC - Nurse 1 - General Ulcer Measurement Start: 08/01/24 15:13 Freq: Status: Active Protocol: Activity Type Activity Date Activity User E-sign Co-sign Detail Recorded Client Recorded Date Recorded By Document 08/01/24 15:13 [facility] [id number] 08/01/24 15:18 BM Document 08/08/24 14:56 KW [id number] 08/08/24 15:01 KW Document 08/15/24 08:11 GM [id number] 08/15/24 08:16 08/01/24 08/08/24 08/15/24 15:13 14:56 08:11 Wound Center Nurse 1 #1 LT PLANTAR -Combined with other wound No No -Current Size (cm) - Length 0.7 0.7 0.8 -Current Size (cm) - Width 0.5 0.8 0.6 -Current Size (cm) - Depth 0.7 1.3 1.0 -Total Square Cm 0.35 0.56 0.48 -Date of Last Picture (Recall this 08/01/24 08/08/24 field) -Photo Taken Yes No -Epithelialization None Present -Tunneling No No -Undermining/Tunneling No No -Circular Undermining No Yes -Exudate Amt Medium Small Medium -Exudate Type Serosanguineous Serosanguineous Serosanguineous -Wound Margin Distinct, Distinct, Distinct, Outline Outline Outline Attached Attached Attached -Granulation Amt Large (67-100%) Large (67-100%) Small (1-33%) -Granulation Quality [place] -Slough/Fibrin Yes No -Necrosis Amt Small (1-33%) None Present (0 %) -Necrotic Tissue Type Adherent Slough -Texture (Smiley-wound Skin Appearance) Assessed, Assessed,Callus Assessed, Localized Edema Localized Edema ,Scarring -Moisture (Smiley-wound Skin Appearance) Assessed Assessed Assessed -Color (Smiley-wound Skin Appearance) Assessed, Assessed Assessed, Erythema Erythema -Temperature ([place]-wound Skin No Abnormality No Abnormality Appearance) (Pt Warm) (Pt Warm) -Tenderness on Palpation (Smiley-wound No No Skin Appearance) -Ulcer Cleansing Rinsed/ Rinsed/ Irrigated with Irrigated with Saline Saline -Foul Odor after Cleansing No No -Anesthetic Used 5% Lidocaine 5% Lidocaine Gel Gel WC - Nurse 2 - General Ulcer CM Notes Start: 08/01/24 15:13 Freq: Status: Active Protocol: Activity Type Activity Date Activity User E-sign Co-sign Detail Recorded Client Recorded Date Recorded By Document 08/01/24 15:38 [id number] 08/01/24 15:40 Document 08/08/24 15:15 [id number] 08/08/24 15:17 Document 08/15/24 08:31 [id number] 08/15/24 08:33 08/01/24 08/08/24 08/15/24 15:38 15:15 08:31 Wound Center Nurse 2 #1 LT PLANTAR -Time 15:38 15:16 08:31 -Correct Patient Yes Yes Yes -Correct Side, Site, Position Yes Yes Yes -Correct Procedure Yes Yes Yes -Procedure Performed Yes Yes Yes -Type of Procedure Debridement Debridement Debridement -Clinical Debridement Muscle / Fascia Muscle / Fascia Bone -Tissue Removed Muscle,Fascia Muscle,Fascia Non-viable tissue -Post Debridement (cm) - Length 0.8 0.8 0.9 -Post Debridement (cm) - Width 0.7 0.7 0.7 -Post Debridement (cm) - Depth 1.3 1.4 1.3 -Total Square (Post) (cm) 0.56 0.56 0.63 -Area of Debridement (cm) - Length 0.8 0.8 0.9 -Area of Debridement (cm) - Width 0.7 0.7 0.7 -Total Square (Area) (cm) 0.56 0.56 0.63 -Tunneling No No No -Undermining/Tunneling No No No -Circular Undermining No No No -Wound/Ulcer Outcome Not Healed Not Healed Not Healed -Ulcer Cleansing Rinsed/ Rinsed/ Rinsed/ Irrigated with Irrigated with Irrigated with Saline Saline Saline -Foul Odor after Cleansing No No No -Bioengineered Tissue No No No -Bleeding Controlled with Pressure Pressure Pressure -Treatment Response Procedure Procedure Procedure Tolerated Well Tolerated Well Tolerated Well -Offloading Yes Yes Yes -Type of Offloading Surgical Shoe Surgical Shoe Surgical Shoe -Debridement - Muscle / Fascia, 1st Yes Yes 20sq cm -Debridement - Bone, 1st 20sq cm Yes Pain Scale: 0-10 Numeric Is Patient Pain Free? Yes Yes Yes - Nurse 3 - General Ulcer D/C NN Start: 08/01/24 15:13 Freq: Status: Active Protocol: Activity Type Activity Date Activity User E-sign Co-sign Detail Recorded Client Recorded Date Recorded By Document 08/01/24 15:52 DL [id number] 08/01/24 15:54 DL Document 08/08/24 15:37 [facility] [id number] 08/08/24 15:37 [facility] 08/01/24 08/08/24 15:52 15:37 Wound Care Center Nurse 3 #1 LT PLANTAR -Ulcer Cleansing Rinsed/ Rinsed/ Irrigated with Irrigated with Saline Saline -Foul Odor after Cleansing No No -Primary Dressing Applied Nugauze, Aquacel AG 2x2 Iodoform 1/4in -Primary Dressing Covered/Secured with Dry Gauze & Dry Gauze & Roll Gauze, Roll Gauze, Secured with Secured with Tape Tape -Aquacel AG 2x2 1 -Nugauze, Iodoform 1/4in 1 Treatment Response Procedure Procedure Tolerated Well Tolerated Well Pain Scale: 0-10 Numeric Is Patient Pain Free? Yes Yes - Visit Discharge Discharge Condition Stable Stable Ambulatory Status Ambulatory Ambulatory Transportation Private Auto Private Auto Assessment/Plan Assessment/Plan (1) Non-pressure chronic ulcer of other part of left foot with necrosis of bone: CODE(S): L97.524 - Non-pressure chronic ulcer of other part of left foot with necrosis of bone PLAN: Patient was examined and evaluated. All findings were discussed with the patient. All questions were answered to the patient's satisfaction. Excisional debridement down to and including subcutaneous tissue, fascia, muscle and bone with a number 3 mm dermal curette to the left plantar ulceration at the level of the hallux. Predebridement measurement was 0.8 x 0.6 x 1.0 cm. Postdebridement measurement is 0.9 x 0.7 x 1.3 cm. Left lower extremities were cleaned and patted dry. Iodoform packing was placed into the ulceration followed by dry sterile dressing and compression wrap. Patient will do daily dressing changes as above which she is understanding of. Patient will have his left foot MRI next Tuesday. Will make definitive plan after MRI results PICC line IV antibiotic versus amputation. Follow-up at the wound care center with Dr. Archibald in 1 week. (2) Osteomyelitis of toe of left foot: CODE(S): M86.9 - Osteomyelitis, unspecified
--- NOTE | 2024-08-20 15:30 | MRI_ITS ---
STUDY: MRI LEFT FOOT WITHOUT CONTRAST REASON FOR EXAM: Male, 49 years old. L PLANTAR ULCER, L 1ST METATARSAL HEAD TECHNIQUE: Standardized fat and water weighted pulse sequences were obtained in all 3 orthogonal planes. COMPARISON: None. FINDINGS: A skin marker was placed along the plantar medial aspect of the base of the great toe. There is focal skin ulceration just plantar medial to the proximal phalanx of the great toe. Normal bone marrow of the tarsals, metatarsals, phalanges and visualized distal tibia/fibula, without osteomyelitis, fracture, periostitis, erosions or reactive bone edema. Normal sesamoids without sesamoiditis, fracture or avascular necrosis. Normal joint spaces, without effusions. There are no extraarticular fluid collections. Normal visualized [place]art and Lisfranc joints and normal Lisfranc ligament. Normal intermetatarsal spaces without intermetatarsal (Heard) neuroma or bursitis. Normal visualized distal posterior tibialis tendon. Normal visualized distal anterior tibialis tendon. Normal visualized distal peroneus longus and brevis tendons. Normal visualized extensor digitorum longus, extensor hallucis longus, flexor digitorum brevis and flexor hallucis longus tendons. Normal visualized plantar fascia without fasciitis, fibromatosis or tear. There is mild generalized edema of the intrinsic muscles of the foot. There is mild subcutaneous soft tissue edema along the dorsum of the foot. MRI/Lower Ext/No Jt/w/o IMPRESSION: Focal skin ulceration just plantar medial to the proximal phalanx of the great toe. Mild generalized edema of the intrinsic muscles of the foot. Mild subcutaneous soft tissue edema along the dorsum of the foot. No evidence of osteomyelitis. Electronically Signed: Bay Mathur MD at 13:09 EDT ,
[2024-08-22 08:05] VITALS: BP 189/114; PULSE 66; RESP 18; TEMP 35.7; BMI 29.4
--- NOTE | 2024-08-22 08:38 | PCM.WC.PN ---
History of Present Illness Date of Service: 08/22/24 Chief Complaint: Left foot wound History of Wound: Left foot wound Progress of Wound: Mr. Jefferson is a 49-year-old diabetic male presenting with care center today for follow-up evaluation of full-thickness wound to the plantar aspect of the left hallux. Patient received his MRI last week and is here for results. He is also here to evaluate the full-thickness wound. He has been doing dressing changes as instructed. He does admit to elevated blood sugar readings with his Dexcom device. He admits the redness has improved. Denies any new trauma. Denies constitutional symptoms. Other pedal complaints at this time. Objective Data Objective Data Vital Signs: Vital Signs Temp Pulse Resp BP O2 Del Method 96.3 F L 66 18 189/114 H Room Air 08/22/24 08:05 08/22/24 08:05 08/22/24 08:05 08/22/24 08:05 08/22/24 08:05 Oxygen Delivery Method Room Air Weight: 103.873 kg Body Mass Index (BMI) 29.4 Radiography Diagnostic Testing: Radiology Impression Lower Extremity MRI 08/20/24 15:30 IMPRESSION: Focal skin ulceration just plantar medial to the proximal phalanx of the great toe. Mild generalized edema of the intrinsic muscles of the foot. Mild subcutaneous soft tissue edema along the dorsum of the foot. No evidence of osteomyelitis. Electronically Signed: Bay Mathur MD at 13:09 EDT Reading Location ID and State: [facility] / [place] , Service support , Physical Exam Narrative Neurovascular status is unchanged his previous visit. Evidence of improved erythema to the left foot at the level of the left hallux. Erythema is blanchable. Skin temperature gradient is warm to warm from proximal ankle to distal digit. No focal increase is appreciated. Full-thickness wound to the plantar aspect of the left hallux measuring 0.8 x 0.8 x 1.3 cm. Positive probe to muscle. No active drainage noted. No pain with calf pressure. Excisional debridement down to and including subcutaneous tissue, fascia, muscle and bone with a number 3 mm dermal curette to the left plantar ulceration at the level of the hallux. Predebridement measurement was 0.7 x 0.7 x 1.0 cm. Postdebridement measurement is 0.8 x 0.8 x 1.3 cm. Debridement Note Debridement Note Debridement Free Text: Excisional debridement down to and including subcutaneous tissue, fascia, muscle and bone with a number 3 mm dermal curette to the left plantar ulceration at the level of the hallux. Predebridement measurement was 0.7 x 0.7 x 1.0 cm. Postdebridement measurement is 0.8 x 0.8 x 1.3 cm. Post-Debridement Measurements and Additional Note: Post-Debridement Measurements/Treatment - Nurse 1 - General Ulcer Assessment Start: 08/01/24 15:13 Freq: Status: Active Protocol: CHARMAINE Activity Type Activity Date Activity User E-sign Co-sign Detail Recorded Client Recorded Date Recorded By Document 08/01/24 15:13 [facility] [id number] 08/01/24 15:18 [facility] Document 08/08/24 14:56 KW [id number] 08/08/24 15:01 KW Document 08/15/24 08:11 [id number] 08/15/24 08:16 Document 08/22/24 08:05 GM [id number] 08/22/24 08:12 GM 08/01/24 08/08/24 08/15/24 15:13 14:56 08:11 - Today's Visit Information Type of service Follow-up Visit Follow-up Visit Follow-up Visit (Physician/SOFTWARE PROJECT LEAD (Physician/SOFTWARE PROJECT LEAD (Physician/SOFTWARE PROJECT LEAD ) ) ) Arrival Mode Ambulatory Ambulatory Ambulatory Transfer Assistance None None Patient Identification Verified (Name & Yes Yes Yes ) Patient Requires Transmission-Based No No Precautions Height and Weight Body Mass Index (BMI) 29.4 29.4 29.4 BMI Classification Overweight Overweight Overweight Vital Signs Temperature (97.8 F-99.1 F) 97.4 F L 97.2 F L 96.5 F L Temperature Source Temporal Temporal Temporal Pulse Rate (60-100) 79 93 82 Pulse Location Monitor Monitor Monitor Respiratory Rate (12-18) 16 18 16 Respiratory rate source Observation Observation Observation Oxygen Delivery Method Room Air Room Air Room Air Blood Pressure (90/60-120/80) 127/85 H 152/80 H 134/94 H Blood Pressure Mean (mm Hg) 99 104 107 Source Monitor Monitor Monitor Position Sitting Semi-Fowlers Sitting Blood Pressure Location Left Arm Left Arm Right Arm History Since Last Visit- (Skip if this is Patient's initial visit) Have you changed medications since your Yes No No last visit? Any new allergies or adverse reactions No No No Had a fall/change in ADL's that may No No No increase risk of falls Signs or symptoms of abuse and/or No No No neglect since last visit Have you been in the hospital since your No No No last visit? Has dressing in place as prescribed Yes Yes Yes Has compression in place as prescribed N/A Yes N/A Has offloadiing in place as prescribed Yes Yes Yes Experienced any changes in pain level or No No No management Left Footwear Surgical Shoe Surgical Shoe Surgical Shoe with pressure with pressure with pressure relief insole relief insole relief insole Right Footwear Regular Shoe Regular Shoe Regular Shoe Pain Scale: 0-10 Numeric Is Patient Pain Free? Yes No No lt foot -Description Sharp Aching -Intensity 2 -Duration (hours) Chronic -Pain Behavior No Change in Behavior -Alleviating Factors/Interventions Will continue to monitor 08/22/24 08:05 WC - Today's Visit Information Type of service Follow-up Visit (Physician/SOFTWARE PROJECT LEAD ) Arrival Mode Ambulatory Transfer Assistance None Patient Identification Verified (Name & Yes ) Patient Requires Transmission-Based No Precautions Height and Weight Body Mass Index (BMI) 29.4 BMI Classification Overweight Vital Signs Temperature (97.8 F-99.1 F) 96.3 F L Temperature Source Temporal Pulse Rate (60-100) 66 Pulse Location Monitor Respiratory Rate (12-18) 18 Respiratory rate source Observation Oxygen Delivery Method Room Air Blood Pressure (90/60-120/80) 189/114 H Blood Pressure Mean (mm Hg) 139 Source Monitor Position Sitting Blood Pressure Location Left Arm History Since Last Visit- (Skip if this is Patient's initial visit) Have you changed medications since your No last visit? Any new allergies or adverse reactions No Had a fall/change in ADL's that may No increase risk of falls Signs or symptoms of abuse and/or No neglect since last visit Have you been in the hospital since your No last visit? Has dressing in place as prescribed Yes Has compression in place as prescribed N/A Has offloadiing in place as prescribed Yes Experienced any changes in pain level or No management Left Footwear Surgical Shoe with pressure relief insole Right Footwear Regular Shoe Pain Scale: 0-10 Numeric Is Patient Pain Free? Yes lt foot -Description -Intensity -Duration (hours) -Pain Behavior -Alleviating Factors/Interventions WC - Nurse 1 - General Ulcer Measurement Start: 08/01/24 15:13 Freq: Status: Active Protocol: Activity Type Activity Date Activity User E-sign Co-sign Detail Recorded Client Recorded Date Recorded By Document 08/01/24 15:13 BM [id number] 08/01/24 15:18 BM Document 08/08/24 14:56 KW [id number] 08/08/24 15:01 KW Document 08/15/24 08:11 GM [id number] 08/15/24 08:16 GM Document 08/22/24 08:05 GM [id number] 08/22/24 08:12 08/01/24 08/08/24 08/15/24 15:13 14:56 08:11 Wound Center Nurse 1 #1 LT PLANTAR -Combined with other wound No No -Current Size (cm) - Length 0.7 0.7 0.8 -Current Size (cm) - Width 0.5 0.8 0.6 -Current Size (cm) - Depth 0.7 1.3 1.0 -Total Square Cm 0.35 0.56 0.48 -Date of Last Picture (Recall this 08/01/24 08/08/24 field) -Photo Taken Yes No -Epithelialization None Present -Tunneling No No -Undermining/Tunneling No No -Circular Undermining No Yes -Exudate Amt Medium Small Medium -Exudate Type Serosanguineous Serosanguineous Serosanguineous -Wound Margin Distinct, Distinct, Distinct, Outline Outline Outline Attached Attached Attached -Granulation Amt Large (67-100%) Large (67-100%) Small (1-33%) -Granulation Quality [place] -Slough/Fibrin Yes No -Necrosis Amt Small (1-33%) None Present (0 %) -Necrotic Tissue Type Adherent Slough -Texture (Smiley-wound Skin Appearance) Assessed, Assessed,Callus Assessed, Localized Edema Localized Edema ,Scarring -Moisture (Smiley-wound Skin Appearance) Assessed Assessed Assessed -Color (Smiley-wound Skin Appearance) Assessed, Assessed Assessed, Erythema Erythema -Temperature (Smiley-wound Skin No Abnormality No Abnormality Appearance) (Pt Warm) (Pt Warm) -Tenderness on Palpation (Smiley-wound No No Skin Appearance) -Ulcer Cleansing Rinsed/ Rinsed/ Irrigated with Irrigated with Saline Saline -Foul Odor after Cleansing No No -Anesthetic Used 5% Lidocaine 5% Lidocaine Gel Gel 08/22/24 08:05 Wound Center Nurse 1 #1 LT PLANTAR -Combined with other wound No -Current Size (cm) - Length 1.0 -Current Size (cm) - Width 0.7 -Current Size (cm) - Depth 1.1 -Total Square Cm 0.70 -Date of Last Picture (Recall this 08/22/24 field) -Photo Taken Yes -Epithelialization None Present -Tunneling No -Undermining/Tunneling No -Circular Undermining No -Exudate Amt Small -Exudate Type Yellow/Green -Wound Margin Distinct, Outline Attached -Granulation Amt Small (1-33%) -Granulation Quality [place] -Slough/Fibrin No -Necrosis Amt -Necrotic Tissue Type -Texture (Smiley-wound Skin Appearance) Assessed,Callus -Moisture (Smiley-wound Skin Appearance) Assessed -Color (Smiley-wound Skin Appearance) Assessed, Erythema -Temperature (Smiley-wound Skin No Abnormality Appearance) (Pt Warm) -Tenderness on Palpation (Smiley-wound Skin Appearance) -Ulcer Cleansing Rinsed/ Irrigated with Saline -Foul Odor after Cleansing No -Anesthetic Used 5% Lidocaine Gel WC - Nurse 2 - General Ulcer CM Notes Start: 08/01/24 15:13 Freq: Status: Active Protocol: Activity Type Activity Date Activity User E-sign Co-sign Detail Recorded Client Recorded Date Recorded By Document 08/01/24 15:38 [id number] 08/01/24 15:40 Document 08/08/24 15:15 [id number] 08/08/24 15:17 Document 08/15/24 08:31 [id number] 08/15/24 08:33 Document 08/22/24 08:32 [id number] 08/22/24 08:36 08/01/24 08/08/24 08/15/24 15:38 15:15 08:31 Wound Center Nurse 2 #1 LT PLANTAR -Time 15:38 15:16 08:31 -Correct Patient Yes Yes Yes -Correct Side, Site, Position Yes Yes Yes -Correct Procedure Yes Yes Yes -Procedure Performed Yes Yes Yes -Type of Procedure Debridement Debridement Debridement -Clinical Debridement Muscle / Fascia Muscle / Fascia Bone -Tissue Removed Muscle,Fascia Muscle,Fascia Non-viable tissue -Post Debridement (cm) - Length 0.8 0.8 0.9 -Post Debridement (cm) - Width 0.7 0.7 0.7 -Post Debridement (cm) - Depth 1.3 1.4 1.3 -Total Square (Post) (cm) 0.56 0.56 0.63 -Area of Debridement (cm) - Length 0.8 0.8 0.9 -Area of Debridement (cm) - Width 0.7 0.7 0.7 -Total Square (Area) (cm) 0.56 0.56 0.63 -Tunneling No No No -Undermining/Tunneling No No No -Circular Undermining No No No -Wound/Ulcer Outcome Not Healed Not Healed Not Healed -Ulcer Cleansing Rinsed/ Rinsed/ Rinsed/ Irrigated with Irrigated with Irrigated with Saline Saline Saline -Foul Odor after Cleansing No No No -Bioengineered Tissue No No No -Bleeding Controlled with Pressure Pressure Pressure -Treatment Response Procedure Procedure Procedure Tolerated Well Tolerated Well Tolerated Well -Offloading Yes Yes Yes -Type of Offloading Surgical Shoe Surgical Shoe Surgical Shoe -Debridement - Muscle / Fascia, 1st Yes Yes 20sq cm -Debridement - Bone, 1st 20sq cm Yes Pain Scale: 0-10 Numeric Is Patient Pain Free? Yes Yes Yes 08/22/24 08:32 Wound Center Nurse 2 #1 LT PLANTAR -Time 08:32 -Correct Patient Yes -Correct Side, Site, Position Yes -Correct Procedure Yes -Procedure Performed Yes -Type of Procedure Debridement -Clinical Debridement Muscle / Fascia -Tissue Removed Muscle,Fascia -Post Debridement (cm) - Length 0.8 -Post Debridement (cm) - Width 0.8 -Post Debridement (cm) - Depth 1.3 -Total Square (Post) (cm) 0.64 -Area of Debridement (cm) - Length 0.8 -Area of Debridement (cm) - Width 0.8 -Total Square (Area) (cm) 0.64 -Tunneling No -Undermining/Tunneling No -Circular Undermining No -Wound/Ulcer Outcome Not Healed -Ulcer Cleansing Rinsed/ Irrigated with Saline -Foul Odor after Cleansing No -Bioengineered Tissue No -Bleeding Controlled with Pressure -Treatment Response Procedure Tolerated Well -Offloading Yes -Type of Offloading Total Contact Cast (TCC) - Left ($) -Debridement - Muscle / Fascia, 1st Yes 20sq cm -Debridement - Bone, 1st 20sq cm Pain Scale: 0-10 Numeric Is Patient Pain Free? Yes - Nurse 3 - General Ulcer D/C NN Start: 08/01/24 15:13 Freq: Status: Active Protocol: Activity Type Activity Date Activity User E-sign Co-sign Detail Recorded Client Recorded Date Recorded By Document 08/01/24 15:52 DL [id number] 08/01/24 15:54 DL Document 08/08/24 15:37 BM [id number] 08/08/24 15:37 BM Document 08/15/24 08:44 GM [id number] 08/15/24 08:44 08/01/24 08/08/24 08/15/24 15:52 15:37 08:44 Wound Care Center Nurse 3 #1 LT PLANTAR -Ulcer Cleansing Rinsed/ Rinsed/ Not Cleansed Irrigated with Irrigated with Saline Saline -Foul Odor after Cleansing No No No -Primary Dressing Applied Nugauze, Aquacel AG 2x2 Iodoform 1/4in -Primary Dressing Covered/Secured with Dry Gauze & Dry Gauze & Dry Gauze,Dry Roll Gauze, Roll Gauze, Gauze & Roll Secured with Secured with Gauze,Secured Tape Tape with Tape -Aquacel AG 2x2 1 -Nugauze, Iodoform 1/4in 1 -Wound Comment(s) Dakins soaked gauze Treatment Response Procedure Procedure Tolerated Well Tolerated Well Pain Scale: 0-10 Numeric Is Patient Pain Free? Yes Yes Yes - Visit Discharge Discharge Condition Stable Stable Stable Ambulatory Status Ambulatory Ambulatory Ambulatory Transportation Private Auto Private Auto Private Auto Assessment/Plan Assessment/Plan (1) Non-pressure chronic ulcer of other part of left foot with necrosis of muscle: CODE(S): L97.523 - Non-pressure chronic ulcer of other part of left foot with necrosis of muscle PLAN: Patient was examined and evaluated. All findings were discussed with the patient. All questions were answered to the patient's satisfaction. Excisional debridement down to and including subcutaneous tissue, fascia, muscle and bone with a number 3 mm dermal curette to the left plantar ulceration at the level of the hallux. Predebridement measurement was 0.7 x 0.7 x 1.0 cm. Postdebridement measurement is 0.8 x 0.8 x 1.3 cm. Left lower extremities were cleaned and patted dry. Iodoform packing was placed into the ulceration followed by dry sterile dressing and compression wrap. Patient will do daily dressing changes as above which she is understanding of. Patient's MRI results show no evidence of Osteomyelitis to the left proximal phalanx. Patient will continue his oral antibiotics as written. If the patient fails to show improvement to the wound and or improvement to the erythema to the left foot will recommend surgical intervention consisting of amputation versus washout with bone biopsy. Patient left lower extremity be placed in total contact cast to be left clean dry and intact. Follow-up at the wound care center with Dr. Archibald in 1 week.
--- NOTE | 2024-08-24 08:30 | WC ---
PHOTO 08/22/24 LEFT HALLUX
[2024-08-27 08:17] VITALS: BP 130/79; PULSE 86; RESP 16; TEMP 36.3; BMI 29.4
--- NOTE | 2024-08-27 08:54 | WC ---
Linezolid will be reordered to pharmacy, will wait to get it approved. Patient completed Levaquin, advised patient to report to ER if increase redness, warmth, fevers body chills occur, he is to report to ER. Blue surgical marker applied to skin where redness is noted to ara-ulcer. Patient verbalizes understanding. Patient states will report to [facility] ER if he has any problems.
--- NOTE | 2024-08-27 08:57 | PCM.WC.PN ---
History of Present Illness Date of Service: 08/27/24 Chief Complaint: Left foot wound History of Wound: Mr. Jefferson is a 49-year-old diabetic male presenting with care center today for follow-up evaluation of full-thickness wound to the plantar aspect of the left hallux. Patient received his MRI results last week. He is also here to evaluate the full-thickness wound. He had a TCC in place. Progress of Wound: Courtesy visit for Dr. Archibald. Patient has a new TCC in place. Today he complains that the TCC was rubbing on his dorsal foot. His left plantar ulcer is stable, it is into the muscle. The biggest concern is that his left great toe is erythematous and warm. Clinically looks like cellulitis. He states that he has been more fatigued than usual. He denies fever, chills at this time. He just completed his course of Levaquin 2 days ago. His last wound cultures were +3 for Enterococcus faecalis and +3 Staphylococcus epidermidis (MRSE) that had multiple resistance. Linezolid was order but was denied by his insurance. Objective Data Objective Data Vital Signs: Vital Signs Temp Pulse Resp BP O2 Del Method 97.4 F L 86 16 130/79 H Room Air 08/27/24 08:17 08/27/24 08:17 08/27/24 08:17 08/27/24 08:17 08/27/24 08:17 Oxygen Delivery Method Room Air Weight: 229 lb Body Mass Index (BMI) 29.4 Charges/Coding Procedures Integumentary 111xxx-113xx: [id number] Chantelle musc/fascia 20 sq cm/< Debridement Note Debridement Note Wound debrided: plantar foot proximal to great toe Laterality: Left Wound Grade/Stage: Stage IV Type of Debridement: Excisional debridement Anesthesia Used: 5% Lidocaine Gel Depth: Down to and including healthy tissue, in the subcutaneous layer and to muscle Percentage of wound debrided: 100 Instrument Used: 5mm curette Tissue Removed: Non viable tissue and slough Severity: Fat Layer Exposed Amount of bleeding with debridement: Mild Bleeding Controlled with: Compression and gauze Patient tolerated procedure: Patient tolerated procedure well Post-Debridement Measurements and Additional Note: Post-Debridement Measurements/Treatment SHERRI - Nurse 1 - General Ulcer Assessment Start: 08/01/24 15:13 Freq: Status: Active Protocol: CHARMAINE Activity Type Activity Date Activity User E-sign Co-sign Detail Recorded Client Recorded Date Recorded By Document 08/01/24 15:13 [facility] [id number] 08/01/24 15:18 BM Document 08/08/24 14:56 KW [id number] 08/08/24 15:01 KW Document 08/15/24 08:11 GM [id number] 08/15/24 08:16 GM Document 08/22/24 08:05 [id number] 08/22/24 08:12 Document 08/27/24 08:17 [facility] [id number] 08/27/24 08:29 BMF 08/01/24 08/08/24 08/15/24 15:13 14:56 08:11 WC - Today's Visit Information Type of service Follow-up Visit Follow-up Visit Follow-up Visit (Physician/PATIENT INTAKE COORDINATOR (Physician/PATIENT INTAKE COORDINATOR (Physician/PATIENT INTAKE COORDINATOR ) ) ) Arrival Mode Ambulatory Ambulatory Ambulatory Transfer Assistance None None Patient Identification Verified (Name & Yes Yes Yes ) Patient Requires Transmission-Based No No Precautions Height and Weight Body Mass Index (BMI) 29.4 29.4 29.4 BMI Classification Overweight Overweight Overweight Vital Signs Temperature (97.8 F-99.1 F) 97.4 F L 97.2 F L 96.5 F L Temperature Source Temporal Temporal Temporal Pulse Rate (60-100) 79 93 82 Pulse Location Monitor Monitor Monitor Respiratory Rate (12-18) 16 18 16 Respiratory rate source Observation Observation Observation Oxygen Delivery Method Room Air Room Air Room Air Blood Pressure (90/60-120/80) 127/85 H 152/80 H 134/94 H Blood Pressure Mean (mm Hg) 99 104 107 Source Monitor Monitor Monitor Position Sitting Semi-Fowlers Sitting Blood Pressure Location Left Arm Left Arm Right Arm History Since Last Visit- (Skip if this is Patient's initial visit) Have you changed medications since your Yes No No last visit? Any new allergies or adverse reactions No No No Had a fall/change in ADL's that may No No No increase risk of falls Signs or symptoms of abuse and/or No No No neglect since last visit Have you been in the hospital since your No No No last visit? Has dressing in place as prescribed Yes Yes Yes Has compression in place as prescribed N/A Yes N/A Has offloadiing in place as prescribed Yes Yes Yes Experienced any changes in pain level or No No No management Left Footwear Surgical Shoe Surgical Shoe Surgical Shoe with pressure with pressure with pressure relief insole relief insole relief insole Right Footwear Regular Shoe Regular Shoe Regular Shoe Pain Scale: 0-10 Numeric Is Patient Pain Free? Yes No No lt foot -Description Sharp Aching -Intensity 2 -Duration (hours) Chronic -Pain Behavior No Change in Behavior -Alleviating Factors/Interventions Will continue to monitor 08/22/24 08/27/24 08:05 08:17 WC - Today's Visit Information Type of service Follow-up Visit Follow-up Visit (Physician/PATIENT INTAKE COORDINATOR (Physician/PATIENT INTAKE COORDINATOR ) ) Arrival Mode Ambulatory Ambulatory Transfer Assistance None None Patient Identification Verified (Name & Yes Yes ) Patient Requires Transmission-Based No No Precautions Height and Weight Body Mass Index (BMI) 29.4 29.4 BMI Classification Overweight Overweight Vital Signs Temperature (97.8 F-99.1 F) 96.3 F L 97.4 F L Temperature Source Temporal Temporal Pulse Rate (60-100) 66 86 Pulse Location Monitor Monitor Respiratory Rate (12-18) 18 16 Respiratory rate source Observation Observation Oxygen Delivery Method Room Air Room Air Blood Pressure (90/60-120/80) 189/114 H 130/79 H Blood Pressure Mean (mm Hg) 139 96 Source Monitor Monitor Position Sitting Sitting Blood Pressure Location Left Arm Left Arm History Since Last Visit- (Skip if this is Patient's initial visit) Have you changed medications since your No No last visit? Any new allergies or adverse reactions No No Had a fall/change in ADL's that may No No increase risk of falls Signs or symptoms of abuse and/or No No neglect since last visit Have you been in the hospital since your No No last visit? Has dressing in place as prescribed Yes Yes Has compression in place as prescribed N/A Has offloadiing in place as prescribed Yes Yes Experienced any changes in pain level or No No management Left Footwear Surgical Shoe Total Contact with pressure Cast relief insole Right Footwear Regular Shoe Regular Shoe Pain Scale: 0-10 Numeric Is Patient Pain Free? Yes Yes lt foot -Description -Intensity -Duration (hours) -Pain Behavior -Alleviating Factors/Interventions SHERRI - Nurse 1 - General Ulcer Measurement Start: 08/01/24 15:13 Freq: Status: Active Protocol: Activity Type Activity Date Activity User E-sign Co-sign Detail Recorded Client Recorded Date Recorded By Document 08/01/24 15:13 [facility] [id number] 08/01/24 15:18 [facility] Document 08/08/24 14:56 KW [id number] 08/08/24 15:01 KW Document 08/15/24 08:11 GM [id number] 08/15/24 08:16 GM Document 08/22/24 08:05 GM [id number] 08/22/24 08:12 GM Document 08/27/24 08:17 [facility] [id number] 08/27/24 08:29 [facility] 08/01/24 08/08/24 08/15/24 15:13 14:56 08:11 Wound Center Nurse 1 #1 LT PLANTAR -Combined with other wound No No -Current Size (cm) - Length 0.7 0.7 0.8 -Current Size (cm) - Width 0.5 0.8 0.6 -Current Size (cm) - Depth 0.7 1.3 1.0 -Total Square Cm 0.35 0.56 0.48 -Date of Last Picture (Recall this 08/01/24 08/08/24 field) -Photo Taken Yes No -Epithelialization None Present -Tunneling No No -Undermining/Tunneling No No -Circular Undermining No Yes -Exudate Amt Medium Small Medium -Exudate Type Serosanguineous Serosanguineous Serosanguineous -Wound Margin Distinct, Distinct, Distinct, Outline Outline Outline Attached Attached Attached -Granulation Amt Large (67-100%) Large (67-100%) Small (1-33%) -Granulation Quality Falling Water Falling Water Falling Water -Slough/Fibrin Yes No -Necrosis Amt Small (1-33%) None Present (0 %) -Necrotic Tissue Type Adherent Slough -Texture (Smiley-wound Skin Appearance) Assessed, Assessed,Callus Assessed, Localized Edema Localized Edema ,Scarring -Moisture (Smiley-wound Skin Appearance) Assessed Assessed Assessed -Color (Smiley-wound Skin Appearance) Assessed, Assessed Assessed, Erythema Erythema -Temperature (Smiley-wound Skin No Abnormality No Abnormality Appearance) (Pt Warm) (Pt Warm) -Tenderness on Palpation (Smiley-wound No No Skin Appearance) -Ulcer Cleansing Rinsed/ Rinsed/ Irrigated with Irrigated with Saline Saline -Foul Odor after Cleansing No No -Anesthetic Used 5% Lidocaine 5% Lidocaine Gel Gel 08/22/24 08/27/24 08:05 08:17 Wound Center Nurse 1 #1 LT PLANTAR -Combined with other wound No No -Current Size (cm) - Length 1.0 0.7 -Current Size (cm) - Width 0.7 0.7 -Current Size (cm) - Depth 1.1 1.4 -Total Square Cm 0.70 0.49 -Date of Last Picture (Recall this 08/22/24 08/27/24 field) -Photo Taken Yes Yes -Epithelialization None Present None Present -Tunneling No No -Undermining/Tunneling No No -Circular Undermining No No -Exudate Amt Small Large -Exudate Type Yellow/Green Serosanguineous -Wound Margin Distinct, Distinct, Outline Outline Attached Attached -Granulation Amt Small (1-33%) Medium (34-66%) -Granulation Quality Falling Water Red -Slough/Fibrin No Yes -Necrosis Amt Medium (34-66%) -Necrotic Tissue Type Adherent Slough -Texture (Smiley-wound Skin Appearance) Assessed,Callus Assessed, Localized Edema ,Scarring -Moisture (Smiley-wound Skin Appearance) Assessed Assessed,Dry/ Scaly -Color (Smiley-wound Skin Appearance) Assessed, Assessed, Erythema Erythema -Temperature (Smiley-wound Skin No Abnormality No Abnormality Appearance) (Pt Warm) (Pt Warm) -Tenderness on Palpation (Smiley-wound Yes Skin Appearance) -Ulcer Cleansing Rinsed/ Rinsed/ Irrigated with Irrigated with Saline Saline -Foul Odor after Cleansing No No -Anesthetic Used 5% Lidocaine 5% Lidocaine Gel Gel WC - Nurse 2 - General Ulcer CM Notes Start: 08/01/24 15:13 Freq: Status: Active Protocol: Activity Type Activity Date Activity User E-sign Co-sign Detail Recorded Client Recorded Date Recorded By Document 08/01/24 15:38 [id number] 08/01/24 15:40 Document 08/08/24 15:15 [id number] 08/08/24 15:17 Document 08/15/24 08:31 [id number] 08/15/24 08:33 Document 08/22/24 08:32 [id number] 08/22/24 08:36 Document 08/27/24 08:45 [id number] 08/27/24 08:52 08/01/24 08/08/24 08/15/24 15:38 15:15 08:31 Wound Center Nurse 2 #1 LT PLANTAR -Time 15:38 15:16 08:31 -Correct Patient Yes Yes Yes -Correct Side, Site, Position Yes Yes Yes -Correct Procedure Yes Yes Yes -Procedure Performed Yes Yes Yes -Type of Procedure Debridement Debridement Debridement -Clinical Debridement Muscle / Fascia Muscle / Fascia Bone -Tissue Removed Muscle,Fascia Muscle,Fascia Non-viable tissue -Post Debridement (cm) - Length 0.8 0.8 0.9 -Post Debridement (cm) - Width 0.7 0.7 0.7 -Post Debridement (cm) - Depth 1.3 1.4 1.3 -Total Square (Post) (cm) 0.56 0.56 0.63 -Area of Debridement (cm) - Length 0.8 0.8 0.9 -Area of Debridement (cm) - Width 0.7 0.7 0.7 -Total Square (Area) (cm) 0.56 0.56 0.63 -Tunneling No No No -Undermining/Tunneling No No No -Circular Undermining No No No -Wound/Ulcer Outcome Not Healed Not Healed Not Healed -Ulcer Cleansing Rinsed/ Rinsed/ Rinsed/ Irrigated with Irrigated with Irrigated with Saline Saline Saline -Foul Odor after Cleansing No No No -Bioengineered Tissue No No No -Bleeding Controlled with Pressure Pressure Pressure -Treatment Response Procedure Procedure Procedure Tolerated Well Tolerated Well Tolerated Well -Offloading Yes Yes Yes -Type of Offloading Surgical Shoe Surgical Shoe Surgical Shoe -Debridement - Muscle / Fascia, 1st Yes Yes 20sq cm -Debridement - Bone, 1st 20sq cm Yes Pain Scale: 0-10 Numeric Is Patient Pain Free? Yes Yes Yes 08/22/24 08/27/24 08:32 08:45 Wound Center Nurse 2 #1 LT PLANTAR -Time 08:32 08:50 -Correct Patient Yes Yes -Correct Side, Site, Position Yes Yes -Correct Procedure Yes Yes -Procedure Performed Yes Yes -Type of Procedure Debridement Debridement -Clinical Debridement Muscle / Fascia Muscle / Fascia -Tissue Removed Muscle,Fascia Muscle,Fascia -Post Debridement (cm) - Length 0.8 1.0 -Post Debridement (cm) - Width 0.8 0.8 -Post Debridement (cm) - Depth 1.3 1.0 -Total Square (Post) (cm) 0.64 0.80 -Area of Debridement (cm) - Length 0.8 1.0 -Area of Debridement (cm) - Width 0.8 0.8 -Total Square (Area) (cm) 0.64 0.80 -Tunneling No No -Undermining/Tunneling No No -Circular Undermining No No -Wound/Ulcer Outcome Not Healed Not Healed -Ulcer Cleansing Rinsed/ Rinsed/ Irrigated with Irrigated with Saline Saline -Foul Odor after Cleansing No No -Bioengineered Tissue No No -Bleeding Controlled with Pressure Pressure -Treatment Response Procedure Procedure Tolerated Well Tolerated Well -Offloading Yes No -Type of Offloading Total Contact Cast (TCC) - Left ($) -Debridement - Muscle / Fascia, 1st Yes Yes 20sq cm -Debridement - Bone, 1st 20sq cm Pain Scale: 0-10 Numeric Is Patient Pain Free? Yes Yes WC - Nurse 3 - General Ulcer D/C NN Start: 08/01/24 15:13 Freq: Status: Active Protocol: Activity Type Activity Date Activity User E-sign Co-sign Detail Recorded Client Recorded Date Recorded By Document 08/01/24 15:52 DL [id number] 08/01/24 15:54 DL Document 08/08/24 15:37 [facility] [id number] 08/08/24 15:37 [facility] Document 08/15/24 08:44 GM [id number] 08/15/24 08:44 GM Document 08/22/24 08:51 RB [id number] 08/22/24 08:52 RB 08/01/24 08/08/24 08/15/24 15:52 15:37 08:44 Wound Care Center Nurse 3 #1 LT PLANTAR -Ulcer Cleansing Rinsed/ Rinsed/ Not Cleansed Irrigated with Irrigated with Saline Saline -Foul Odor after Cleansing No No No -Primary Dressing Applied Nugauze, Aquacel AG 2x2 Iodoform 1/4in -Other Dressing -Primary Dressing Covered/Secured with Dry Gauze & Dry Gauze & Dry Gauze,Dry Roll Gauze, Roll Gauze, Gauze & Roll Secured with Secured with Gauze,Secured Tape Tape with Tape -Aquacel AG 2x2 1 -Nugauze, Iodoform 1/4in 1 -Wound Comment(s) Dakins soaked gauze Treatment Response Procedure Procedure Tolerated Well Tolerated Well Pain Scale: 0-10 Numeric Is Patient Pain Free? Yes Yes Yes WC - Visit Discharge Discharge Condition Stable Stable Stable Ambulatory Status Ambulatory Ambulatory Ambulatory Transportation Private Auto Private Auto Private Auto Medication Reconcilliation completed & provided to patient/care provider Clinical Summary of Care Provided 08/22/24 08:51 Wound Care Center Nurse 3 #1 LT PLANTAR -Ulcer Cleansing -Foul Odor after Cleansing -Primary Dressing Applied -Other Dressing iodoform and betadine gauze/ superabsorber -Primary Dressing Covered/Secured with -Aquacel AG 2x2 -Nugauze, Iodoform 1/4in -Wound Comment(s) primary layer of TCC Treatment Response Procedure Tolerated Well Pain Scale: 0-10 Numeric Is Patient Pain Free? Yes WC - Visit Discharge Discharge Condition Stable Ambulatory Status Ambulatory Transportation Private Auto Medication Reconcilliation completed & No provided to patient/care provider Clinical Summary of Care Provided Yes Assessment/Plan Assessment/Plan (1) Non-pressure chronic ulcer of other part of left foot with necrosis of muscle: CODE(S): L97.523 - Non-pressure chronic ulcer of other part of left foot with necrosis of muscle (2) Cellulitis of left toe: CODE(S): L03.032 - Cellulitis of left toe PLAN: Plan Patient was examined and evaluated. All findings were discussed with the patient. All questions were answered to the patient's satisfaction. Wound care - Betadine moistened gauze (or iodoform) packed into the ulcer daily covered with gauze/ABD. Wash with soap and water daily at the time of the dressing change. Off-load as much as possible. Wear post op shoe. Not placing TCC back on because of concern of cellulitis of left great toe. Patient completed his Levaquin on Tuesday (2 days ago). The left great toe is erythematous and warm to touch. Area marked with marker. Instructed patient that I will order Linezolid for his cellulitis since that is what is most sensitive to his last positive wound cultures of +3 for Enterococcus faecalis and +3 Staphylococcus epidermidis (MRSE) that had multiple resistance. Linezolid was order but was denied by his insurance. If his redness worsens, he develops fever, chills, nausea, vomiting, or other signs of infection, he is instructed to go to the ED for further evaluation and possible admission for IV antibiotics. Patient's MRI results show no evidence of Osteomyelitis to the left proximal phalanx. Follow-up at the wound care center with Dr. Archibald on Tuesday.
--- NOTE | 2024-08-28 08:45 | WC ---
PHOTO 08/27/24 LEFT PLANTAR
== END 2024-08-27 23:59 | disposition home or self-care (01) ==
LOC: WC 08:15
PROVIDERS: PCP Student in an Organized Health Care Education/Training Program; Referring Provider Student in an Organized Health Care Education/Training Program; Visit Provider Podiatrist Foot & Ankle Surgery
DX: E11.621 Type 2 diabetes mellitus with foot ulcer (principal); L97.523 Non-pressure chronic ulcer of other part of left foot with necrosis of muscle; M86.9 Osteomyelitis, unspecified; E11.42 Type 2 diabetes mellitus with diabetic polyneuropathy; E11.69 Type 2 diabetes mellitus with other specified complication; R53.83 Other fatigue; L03.032 Cellulitis of left toe
CPT/HCPCS: 11043; 11044; 29445; 73718

== ENCOUNTER 2024-08-29 10:24 | Inpatient (IN) | payer MEDICAID, SELFPAY ==
[2024-08-29 10:25] VITALS: BP 141/91; PULSE 75; RESP 18; TEMP 36.7; O2SAT 98
[2024-08-29 10:27] VITALS: BP 141/91; PULSE 75; RESP 16; TEMP 36.7; O2SAT 98
[2024-08-29 10:33] VITALS: BMI 28.1
--- NOTE | 2024-08-29 10:50 | ED.VIS.LOWEX ---
HPI History of Present Illness Chief Complaint: Wound Informant: patient and other ([employer] Dr. Archibald) Narrative Narrative: Sent in from wound center followed by Dr. Archibald podiatry for diabetic left foot ulcer failing outpatient treatment. He has an ulcer since June. Diabetic with neuropathy. Has been following wound care. Just finished Levaquin. There attempt to get Linezolid outpatient. Patient is reporting chills. Reported outpatient MRI was negative. Patient sent here for admission and IV antibiotics for plan definitive diagnosis with bone biopsy while in the hospital. Patient has no allergies to any medications. [facility] Medical History (Updated 08/29/24 @ 12:45 by Nicole Castellano) Anxiety Diabetes Smoker BiPAP (biphasic positive airway pressure) dependence Hypertension DVT (deep venous thrombosis) Myocardial infarct Home Medications ?Medication ?Instructions ?Recorded ?Last Taken ?Type blood-glucose meter,continuous 07/25/24 Unknown History (Dexcom G6 Tectonophysicist) blood-glucose sensor (Dexcom G7 07/25/24 Unknown History Sensor device) blood-glucose transmitter (Dexcom 07/25/24 Unknown History G6 Transmitter device) gabapentin 300 mg capsule 300 mg PO BID NERVE PAIN 07/25/24 Unknown History glipizide 5 mg tablet 5 mg PO BID 07/25/24 08/28/24 History insulin aspart U-100 100 unit/mL See Protocol subcut TID 07/25/24 08/28/24 History (3 mL) subcutaneous pen (Novolog FlexPen U-100 Insulin aspart) insulin glargine 100 unit/mL (3 30 unit subcut DAILY 07/25/24 08/28/24 History mL) subcutaneous pen (Lantus Solostar U-100 Insulin) metoprolol succinate 50 mg 50 mg PO DAILY BLOOD PRESSURE 07/25/24 Unknown History tablet,extended release 24 hr sertraline 25 mg tablet 25 mg PO DAILY 07/25/24 08/15/24 History linezolid 600 mg tablet 600 mg PO Q12H ANTIBIOTIC 14 days 08/27/24 Unknown Rx #28 tabs atorvastatin 20 mg tablet 20 mg PO QHS 08/29/24 08/28/24 History bismuth subsalicylate 262 mg 524 mg PO Q30M PRN diarrhea 08/29/24 Unknown History tablet (Digestive Relief) lisinopril 40 mg tablet 40 mg PO DAILY 08/29/24 08/28/24 History omeprazole 20 mg capsule,delayed 20 mg PO 0700 08/29/24 08/28/24 History release Allergy/AdvReac Type Severity Reaction Status Date / Time No Known Allergies Allergy Verified 08/29/24 10:27 Surgical History (Updated 08/29/24 @ 12:43 by Nicole Castellano) History of coronary artery stent placement Social History Smoking Status: Former smoker ROS ROS ED Constitutional Constitutional ED: Reports chills; Denies fever(s) or sweats Eyes Eyes: Denies change in vision ENT ENT ED: Denies dysphagia or sore throat Cardiovascular Cardiovascular: Denies chest pain, leg edema, palpitations or racing heartbeat Respiratory/Chest Respiratory/Chest: Denies cough, dyspnea or dyspnea on exertion Gastrointestinal Gastrointestinal: Denies abdominal pain, diarrhea, nausea or vomiting Genitourinary Genitourinary ED: Denies dysuria, hematuria or urinary frequency Musculoskeletal Musculoskeletal: Denies back pain, extremity pain or neck pain Integumentary Reports wounds and other Details: Diabetic left foot ulcer ; Denies rash Neurologic Neurologic: Denies headache(s), paresthesias or weakness EXAM Physical Exam Const Vital Signs: 08/29/24 10:25 08/29/24 10:27 Temperature 98.1 F 98.1 F Temperature Source Temporal Oral Pulse Rate 75 75 Respiratory Rate 18 16 Blood Pressure 141/91 H 141/91 H Blood Pressure Mean 107 107 Pulse Ox 98 98 Oxygen Delivery Method Room Air Room Air Positive well nourished and well developed General Appearance ED: well developed and NAD HEENT Reports moist mucous membranes normocephalic and atraumatic Eyes EOMs intact bilaterally and conjunctivae normal General Eye ED: Yes normal appearance of both eyes Neck no lymphadenopathy and supple General: Negative for tenderness Chest Wall Chest: Negative for tenderness Resp normal respiratory effort and normal air movement Effort and Inspection: symmetric chest movement; Negative for respiratory distress Cardio regular rate, regular rhythm and no murmurs Peripheral Pulses: pulses 2+ throughout GI normal to inspection, nondistended, normoactive bowel sounds and non-tender Palpation: Negative for guarding or rebound tenderness present Back/Spine no CVA tenderness and no thoracic nor lumbar tenderness Extremity Extremity Narrative: Left foot: Less than dime size ulcer plantar aspect distal first MT there is some erythema just proximal to this. No significant swelling. No drainage. No streaking up the leg. General Extremety ED: Negative for edema General Extremity: Negative for edema Neuro oriented x3 and no sensory deficits noted Sensorium / Orientation: awake and alert Skin no rashes or lesions noted and no wounds MDM MDM MDM Narrative Medical decision making narrative: Interventions / MDM: Differential diagnosis: Diabetic left foot ulcer with cellulitis, failed outpatient treatment. Diagnosis considered but do not suspect: N/A My EKG interpretation: N/A Imaging independently reviewed and interpreted by myself: N/A External documents reviewed: MRI left foot 08/20/2024 negative for osteomyelitis. Test considered but not ordered:N/A ED course: Patient failed outpatient treatment of diabetic foot ulcer. Recent MRI negative. Labs, inflammatory markers, blood culture obtained. He is started on Zosyn and vancomycin. Will plan on discussion with hospitalist service for admission. 1130: White count 10.4 elevated ESR and CRP. Creatinine 0.92. Glucose 256. Clinically stable. He failed outpatient therapy. I discussed with hospitalist Dr. Mac for admission. Re-evaluation: stable Disposition discussed with patient/family/significant other: Patient Case discussed with consulting clinician: [employer] Dr. Archibald, hospitalist This note was generated with [employer] dictation software. It may contain incorrect words, spelling, and punctuation that were not noted in checking the note before signing. Lab Data Attestation: I reviewed the patient's lab results. Labs: Laboratory Results - last 24 hr 08/29/24 10:45 WBC 10.4 RBC 5.45 Hgb 14.6 Hct 43.1 MCV 79.1 L MCH 26.8 L MCHC 33.9 RDW Std Deviation 34.5 L RDW Coeff of Jen 12.2 Plt Count 245 MPV 10.6 Immature Gran % (Auto) 0.400 Neut % (Auto) 65.9 Lymph % (Auto) 24.3 [place] % (Auto) 7.4 Eos % (Auto) 1.6 Baso % (Auto) 0.4 Absolute Neuts (auto) 6.8 Absolute Lymphs (auto) 2.52 Nucleated RBC % 0 ESR 57 H PT 13.7 INR 1.1 APTT 28.6 Sodium 133 L Potassium 3.4 L Chloride 100 Carbon Dioxide 28.0 Anion Gap 6 BUN 8 Creatinine 0.92 Estim Creat Clear Calc 122.49 Est GFR (MDRD) Af Amer 113 Est GFR (MDRD) Non-Af 93 BUN/Creatinine Ratio 8.7 L Glucose 256 H Calcium 9.4 Total Bilirubin 0.80 AST 7 L ALT 11 L Alkaline Phosphatase 97 C-React Prot Ext Range 34.40 H Total Protein 8.1 Albumin 3.3 Globulin 4.8 H Albumin/Globulin Ratio 0.7 L Discharge Plan Dx/Rx/DC Orders Clinical Impression: Diabetic ulcer of left foot, Cellulitis of left foot, Hyperglycemia, Failure of outpatient treatment Disposition Disposition: Acute Care Hospital [facility]
[2024-08-29] MEDS: Piperacil/Tazobactam 3.375 GM in 0.9% Normal Saline (50mL MB+) 50 ML IV ×2 (10:57→21:39)
[2024-08-29 11:10] LABS: Erythrocyte Sedimentation Rate 57 mm/hr (0-20)
[2024-08-29 11:12] LABS: Absolute Lymphocyte Count 2.52 X10^3/uL (0.83-4.51); Absolute Neutrophil Count 6.8 X10^3/uL (2.0-7.7); Basophil# 0.04 X10^3/uL; Basophil% 0.4 % (0-1); Eosinophil# 0.17 X10^3/uL; Eosinophils% 1.6 % (0-5); Hematocrit 43.1 % (40-54); Hemoglobin 14.6 g/dL (13.0-16.5); Lymphocyte # 2.52 X10^3/ul (0.83-4.51); Lymphocyte % 24.3 % (19-41); Mean Corp Hgb Conc 33.9 g/dL (32-36); Mean Corpuscular Hgb 26.8 pg (27.0-32.0); Mean Corpuscular Volume 79.1 fL (80-94); Mean Platelet Vol. 10.6 fl (6.2-12.0); Monocyte# 0.77 X10^3/uL; Monocyte% 7.4 % (0-10); NRBC Flagged by Analyzer 0 % (0-5); Neutrophil # 6.82 X10^3/uL (2.7-7.7); Neutrophil % 65.9 % (47-70); Platelet Count 245 K/mm3 (150-450); RBC Distribution Width CV 12.2 % (11.6-14.6); RBC Distribution Width SD 34.5 fl (35.1-43.9); Red Blood Count 5.45 M/mm3 (4.6-6.2); White Blood Count 10.4 K/mm3 (4.4-11.0)
[2024-08-29 11:20] LABS: International Normalized Ratio 1.1; Prothrombin Time (Protime)PT. 13.7 SECONDS (11.7-14.9)
[2024-08-29 11:23] LABS: ALB/GLOB Ratio 0.7 RATIO (0.9-2.4); AST(SGOT) 7 U/L (15-37); Alanine Aminotransfer ALT/SGPT 11 U/L (16-61); Albumin, Serum 3.3 g/dL (3.2-5.0); Alkaline Phosphatase 97 U/L (45-117); Anion Gap 6 (5-15); BUN 8 mg/dL (7-18); BUN/Creat Ratio 8.7 RATIO (10-20); Calcium,Total 9.4 mg/dL (8.5-10.1); Chloride 100 mmol/L (98-107); Creatinine, Serum 0.92 mg/dL (0.70-1.30); EST Glomerular Filtration Rate 93 mL/min (>60); Est Glom Filt Rate - Afr Amer 113 mL/min (>60); Estimated Creatinine Clearance 122.49 ml/min; Globulin 4.8 g/dL (2.2-4.2); Glucose 256 mg/dL (74-106); Potassium 3.4 mmol/L (3.5-5.1); Protein, Total 8.1 g/dL (6.4-8.2); Sodium Level 133 mmol/L (136-145)
--- NOTE | 2024-08-29 11:23 | HP.PCM.HOS_ITS ---
HPI - General General Date of Admission: 08/29/24 Date of Service: 08/29/24 Chief Complaint: left diabetic foot ulcer HPI Narrative SHEREE QUILES, is a 49 M with a PMH as outlined including diabetes mellitus who was admitted from the ED on 08/29/2024 after being referred by his machine rope maker at the wound clinic for diabetic foot ulcer, with failed outpatient treatment. The ulcer had been present since June 2024 and he had been seeing the machine rope maker at wound clinic and completed a course of levaquin. HOwever, the ulcer persisted and there was concern for osteomyelitis. He did have an MRI of the foot done on outpatient basis also which did not show any evidence of osteomyelitis. His machine rope maker tried to start him on linezolid on outpatient basis, but this was pending insurance approval. Vitals in the ED were BP of 149/91, SC Of 75, RR of 16 and temp of 98.1F. He was saturating at 98% on room air. CBC showed hb of 14.6, wbc of 10.4 and platelets of 245. ESR is 57. Chemistry showed sodium of 133, potassium of 3.4 and Cr of 0.92. Blood cultures were ordered. He is being admitted to be managed for right diabetic foot ulcer with possible osteomyelitis. [facility] Medical History (Updated 08/29/24 @ 16:[address] 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
--- NOTE | 2024-08-29 11:23 | PCM.HP.STD ---
HPI - General General Date of Admission: 08/29/24 Date of Service: 08/29/24 Chief Complaint: left diabetic foot ulcer HPI Narrative SHEREE QUILES, is a 49 M with a PMH as outlined including diabetes mellitus who was admitted from the ED on 08/29/2024 after being referred by his quartz miner blasting at the wound clinic for diabetic foot ulcer, with failed outpatient treatment. The ulcer had been present since June 2024 and he had been seeing the quartz miner blasting at wound clinic and completed a course of levaquin. HOwever, the ulcer persisted and there was concern for osteomyelitis. He did have an MRI of the foot done on outpatient basis also which did not show any evidence of osteomyelitis. His quartz miner blasting tried to start him on linezolid on outpatient basis, but this was pending insurance approval. Vitals in the ED were BP of 149/91, HI Of 75, RR of 16 and temp of 98.1F. He was saturating at 98% on room air. CBC showed hb of 14.6, wbc of 10.4 and platelets of 245. ESR is 57. Chemistry showed sodium of 133, potassium of 3.4 and Cr of 0.92. Blood cultures were ordered. He is being admitted to be managed for right diabetic foot ulcer with possible osteomyelitis. [facility] Medical History (Updated 08/29/24 @ 16:[address] 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) blood-glucose sensor (Dexcom G7 07/25/24 Unknown History Sensor device) blood-glucose transmitter (Dexcom 07/25/24 Unknown History G6 Transmitter device) gabapentin 300 mg capsule 300 mg PO BID NERVE PAIN 07/25/24 Unknown History glipizide 5 mg tablet 5 mg PO BID 07/25/24 08/28/24 History insulin aspart U-100 100 unit/mL See Protocol subcut TID 07/25/24 08/28/24 History (3 mL) subcutaneous pen (Novolog FlexPen U-100 Insulin aspart) insulin glargine 100 unit/mL (3 30 unit subcut DAILY 07/25/24 08/28/24 History mL) subcutaneous pen (Lantus Solostar U-100 Insulin) metoprolol succinate 50 mg 50 mg PO DAILY BLOOD PRESSURE 07/25/24 Unknown History tablet,extended release 24 hr sertraline 25 mg tablet 25 mg PO DAILY 07/25/24 08/15/24 History linezolid 600 mg tablet 600 mg PO Q12H ANTIBIOTIC 14 days 08/27/24 Unknown Rx #28 tabs atorvastatin 20 mg tablet 20 mg PO QHS 08/29/24 08/28/24 History bismuth subsalicylate 262 mg 524 mg PO Q30M PRN diarrhea 08/29/24 Unknown History tablet (Digestive Relief) lisinopril 40 mg tablet 40 mg PO DAILY 08/29/24 08/28/24 History omeprazole 20 mg capsule,delayed 20 mg PO 0700 08/29/24 08/28/24 History release Allergy/AdvReac Type Severity Reaction Status Date / Time No Known Allergies Allergy Verified 08/29/24 10:27 Surgical History (Updated 08/29/24 @ 12:43 by Nicole Castellano) History of coronary artery stent placement Social History Smoking Status: Former smoker ROS Constitutional Constitutional: Denies anorexia, change in weight, chills, fatigue, fever(s), malaise, night sweats or weakness Eyes Eyes: Denies change in vision ENT HEENT: Denies dysphagia, headache(s), nasal congestion, nasal discharge or sore throat Cardiovascular Cardiovascular: Denies chest pain, dyspnea on exertion, edema, lightheadedness, orthopnea, palpitations, paroxysmal nocturnal dyspnea, rapid heart rate or syncope Respiratory/Chest Respiratory/Chest: Denies cough, dyspnea, shortness of breath at rest or shortness of breath with exertion Gastrointestinal Gastrointestinal: Denies abdominal pain, constipation, diarrhea, melena, nausea or vomiting Genitourinary Genitourinary: Denies burning urination or dysuria Musculoskeletal Musculoskeletal: Reports joint swelling; Denies arthralgias or joint pain Neurologic Neurologic: Denies confusion, dizziness, focal weakness, headache(s), numbness, paresthesias, seizure-like activity, seizures or syncope Psychiatric Psychiatric: Reports anxiety and depression Endocrine Endocrinology: Reports change in body appearance Vital Signs Vital Signs Vital Signs: 08/29/24 10:25 08/29/24 10:27 Temperature 98.1 F 98.1 F Temperature Source Temporal Oral Pulse Rate 75 75 Respiratory Rate 18 16 Blood Pressure 141/91 H 141/91 H Blood Pressure Mean 107 107 Pulse Ox 98 98 Oxygen Delivery Method Room Air Room Air Weight Weight: 219 lb 9.286 oz Body Mass Index (BMI) 28.1 Physical Exam Const alert, oriented x3 and no apparent distress General Appearance: cooperative HEENT normocephalic, head/scalp atraumatic, hearing grossly normal bilaterally, moist oral mucous membranes and oropharynx normal Mouth: oral and palatal mucosa normal Eyes PERRL, EOMs intact bilaterally and conjunctivae normal Neck no lymphadenopathy, supple and no JVD Resp normal respiratory effort, no retractions, no use of accessory muscles and clear to auscultation bilaterally Cardio regular rate, regular rhythm, S1 normal heart sound, S2 normal heart sound and no murmurs GI normal to inspection, nondistended, normoactive bowel sounds and soft to palpation Extremity Extremity Narrative: left great toe wrapped in bandage; toe is swollen and erythematous. Has a deep, probing ulcer on the base of the left great toe. Skin Skin Narrative: as under extremity Neuro oriented x3, CN's II-XII intact bilaterally, moves all extremities and no focal motor deficits Sensorium / Orientation: awake and alert Motor Exam: strength 5/5 throughout Psych affect normal Results Lab / Micro Data 08/29/24 10:45 08/29/24 10:45 Labs: Laboratory Results - last 24 hr 08/29/24 10:45: WBC 10.4, RBC 5.45, Hgb 14.6, Hct 43.1, MCV 79.1 L, MCH 26.8 L, MCHC 33.9, RDW Std Deviation 34.5 L, RDW Coeff of Jen 12.2, Plt Count 245, MPV 10.6, Immature Gran % (Auto) 0.400, Neut % (Auto) 65.9, Lymph % (Auto) 24.3, Rich % (Auto) 7.4, Eos % (Auto) 1.6, Baso % (Auto) 0.4, Absolute Neuts (auto) 6.8, Absolute Lymphs (auto) 2.52, Nucleated RBC % 0, ESR 57 H Assessment & Plan Assessment/Plan (1) Cellulitis of left foot: (2) Diabetic ulcer of left foot: (3) Osteomyelitis of toe of left foot: (4) Failure of outpatient treatment: PLAN: Plan #Diabetic foot ulcer and cellulitis with osteomyelitis admit to med surg. had been treated on outpatient basis at the wound care, but failed outpatient therapy He had MRI of the left foot on 08/20/2024 which showed focal skin ulceration and no evidence of osteomyelitis and and mild subcutaneous soft tissue edema along the dorsum of the foot. There was no evidence of osteomyelitis. he is to have a bone biopsy on Tuesday quartz miner blasting wanted to start him on PO linezolid on outpatient basis but was pending insurance approval consult podiatry and ID started on IV vancomycin and zosyn get blood and wound cultures #TYpe 2 diabetes mellitus on glipizide on lantus 24 units daily. ISS. Accuchecks ACHS #Hyperlipidemia: on statin #Hypertension: on lisinopril and metoprolol. IV hydralazine prn DVT prophylaxis: lovenox Code status: full code Patient counseled extensively about different types of CODE STATUS including full code, DNR CCA and DNR CCA. Patient elects to be full code. Total [id number] time 17 minutes. # Charges/Coding Visit Charges Inpatient E&M: 30876 Init Hosp L3 Procedures Hospitalists Procedures: 80812 Advncd Care Plan 30 Min
--- NOTE | 2024-08-29 11:25 | NURSING ---
DR IBIS GREER
[2024-08-29 11:31] LABS: Partial Thromboplast Time 28.6 Seconds (24.1-36.2)
--- NOTE | 2024-08-29 11:31 | NURSING ---
MED SURG [facility]
[2024-08-29] MEDS: Vancomycin HCl 2,000 MG in 0.9% Normal Saline (500mL Bag) 500 ML 250 MG IV (11:40)
[2024-08-29 12:19] VITALS: BMI 28.5
[2024-08-29 12:56] VITALS: BP 140/82; PULSE 70; RESP 20; TEMP 36.8; O2SAT 100
[2024-08-29 13:00] VITALS: PULSE 70
--- NOTE | 2024-08-29 14:29 | WOUNDNOTE ---
wound photo: left foot
--- NOTE | 2024-08-29 14:30 | WOUNDNOTE ---
skin photo: left foot
--- NOTE | 2024-08-29 14:36 | PCM.RX.CS ---
Consult Antibiotic Management Pharmacy has been consulted to manage selected antibiotic: Vancomycin Type of Intervention Type of Consult: New start Suspected Infection Suspected Infection: Skin/Soft tissue Labs Labs: Sodium 133 mmol/L (136-145) L 08/29/24 10:45 Potassium 3.4 mmol/L (3.5-5.1) L 08/29/24 10:45 Chloride 100 mmol/L (98-107) 08/29/24 10:45 Carbon Dioxide 28.0 mmol/L (21.0-32.0) 08/29/24 10:45 Anion Gap 6 (5-15) 08/29/24 10:45 BUN 8 mg/dL (7-18) 08/29/24 10:45 Creatinine 0.92 mg/dL (0.70-1.30) 08/29/24 10:45 Est GFR (MDRD) Af Amer 113 mL/min (>60) 08/29/24 10:45 Est GFR (MDRD) Non-Af 93 mL/min (>60) 08/29/24 10:45 BUN/Creatinine Ratio 8.7 RATIO (10-20) L 08/29/24 10:45 Glucose 256 mg/dL (74-106) H 08/29/24 10:45 Goal Trough Goal Trough: 15-20 mcg/mL Pharmacy Plan for Drug Dosing Pharmacy Plan for Drug Dosing: NEW IV VANCOMYCIN Consulting Physician: Dr. Mac Indication: Diabetic foot ulcer Goal Trough: 15-20 SrCr: 0.92 CrCl: 122 mL/min Comments: Loading dose of 2g IV x1 in ED ordered and administered 08/29 @1140 Vancomycin Dose: 1250mg IV Q8h to start 08/29/24 @2000 Pending Level: 08/30/24 @1130, prior to 4th total dose of vanco per protocol Pharmacy Service will continue to monitor and adjust dosing as required.
[2024-08-29] MEDS: Insulin Lispro 100 UNIT/ML INSULN.PEN SC ×2 (14:48→21:27)
[2024-08-29 15:02] LABS: Bedside Glucose 348 mg/dL (74-106)
[2024-08-29 15:44] LABS: M R Staph aureus DNA By PCR Negative (Negative); Probe Check PASS; Specimen Processing Control PASS; Staph aureus DNA By PCR NEGATIVE (Negative)
--- NOTE | 2024-08-29 16:15 | PCM.CONS.GEN ---
Assessment & Plan Assessment/Plan (1) Cellulitis of left foot: PLAN: Patient was examined and evaluated. All findings were discussed with the patient. All questions were answered to the patient satisfaction. Three-view nonweightbearing left foot radiographs (08/29/2024): Evidence of plantar defect to the proximal phalanx with possible periosteal reaction to the midshaft of the proximal phalanx. No emphysema. Left lower extremity MRI (08/20/2024): Shows evidence of ulceration to the plantar medial aspect of the proximal phalanx of the left hallux. Generalized edema. Mild subcutaneous soft tissue edema. No emphysema. No sign of osteomyelitis. Wound cultures (07/25/2024): Enterococcus faecalis, Staphylococcus epidermidis After physical examination of the patient's left lower extremity. There is concern for worsening cellulitis after the patient has failed oral antibiotics. Will plan for this hospital stay to take the patient to the operating room to perform incision and drainage with incision bone cortex of the proximal phalanx of the left hallux. Please clear the patient medically with recommendations. Will plan for surgical intervention Tuesday. WBC: 10.4 ESR: 57 CRP: 34.40 Glucose: 348 PVRs: Pending Medicine: On board, medical management, IV antibiotics vancomycin and Zosyn. Infectious disease: Consult pending Podiatry will continue to follow while patient is in house. The left plantar hallux full-thickness wound was dressed with Betadine soaked gauze packing, 4 x 4's, Kerlix wrap and Jensen bandage. Orders will be placed for wound care nurse to change dressing daily. Please reach out to Dr. Archibald with any questions or concerns. Thank you for the consultation estimation point (2) Osteomyelitis of toe of left foot: (3) Chronic painful diabetic polyneuropathy: (4) Non-pressure chronic ulcer of other part of left foot with necrosis of muscle: (5) Other specified peripheral vascular diseases: HPI Consult Data Date of Consult: 08/29/24 HPI Narrative Reason for Consultation: Left foot cellulitis HPI Narrative: SHEREE QUILES, is a 49 M who presented to the emergency department [facility] after being referred by myself for worsening cellulitis to the left foot. The patient has failed multiple rounds of oral antibiotics and outpatient excisional debridements. Patient's left foot MRI showed no evidence or concern for osteomyelitis however the patient's cellulitis has gotten worse over the past week. I request for oral antibiotics, linezolid, which is pending insurance approval. Podiatry was consulted for evaluation and possible surgical intervention to the left foot. 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 (Dexcom G7 07/25/24 Unknown History Sensor device) blood-glucose transmitter ([employer]excom 07/25/24 Unknown History G6 Transmitter device) gabapentin 300 mg capsule 300 mg PO BID NERVE PAIN 07/25/24 Unknown History glipizide 5 mg tablet 5 mg PO BID 07/25/24 08/28/24 History insulin aspart U-100 100 unit/mL See Protocol subcut TID 07/25/24 08/28/24 History (3 mL) subcutaneous pen (Novolog FlexPen U-100 Insulin aspart) insulin glargine 100 unit/mL (3 30 unit subcut DAILY 07/25/24 08/28/24 History mL) subcutaneous pen (Lantus Solostar U-100 Insulin) metoprolol succinate 50 mg 50 mg PO DAILY BLOOD PRESSURE 07/25/24 Unknown History tablet,extended release 24 hr sertraline 25 mg tablet 25 mg PO DAILY 07/25/24 08/15/24 History linezolid 600 mg tablet 600 mg PO Q12H ANTIBIOTIC 14 days 08/27/24 Unknown Rx #28 tabs atorvastatin 20 mg tablet 20 mg PO QHS 08/29/24 08/28/24 History bismuth subsalicylate 262 mg 524 mg PO Q30M PRN diarrhea 08/29/24 Unknown History tablet (Digestive Relief) lisinopril 40 mg tablet 40 mg PO DAILY 08/29/24 08/28/24 History omeprazole 20 mg capsule,delayed 20 mg PO 0700 08/29/24 08/28/24 History release Allergy/AdvReac Type Severity Reaction Status Date / Time No Known Allergies Allergy Verified 08/29/24 10:27 Surgical History History of coronary artery stent placement Social History Smoking Status: Former smoker Physical Exam Narrative Vascular: DP and PT pulse are palpable to the left lower extremity. CFT is brisk. Nonblanchable erythema appreciated to the first metatarsal phalangeal joint at the level of the hallux, proximal streaking is noted. Skin temperature gradient is warm to warm from proximal ankle to distal digit. Focal increase appreciated to the left great toe. Neurological: Light touch intact. Protective sensation is absent. Dermatological: Full-thickness ulceration measuring 0.7 x 0.7 x 1.4 cm to the plantar left hallux, probe to muscle and periosteum. There is some slight undermining towards the proximal martin. Erythema with proximal streaking. Musculoskeletal: No pain with palpation to the full-thickness wound or with range of motion to the left big toe joint. No pain with calf pressure. Const alert, oriented x3 and no apparent distress Lab / Micro Data 08/29/24 10:45 08/29/24 10:45 Labs: Laboratory Results - last 24 hr 08/29/24 10:45: WBC 10.4, RBC 5.45, Hgb 14.6, Hct 43.1, MCV 79.1 L, MCH 26.8 L, MCHC 33.9, RDW Std Deviation 34.5 L, RDW Coeff of Jen 12.2, Plt Count 245, MPV 10.6, Immature Gran % (Auto) 0.400, Neut % (Auto) 65.9, Lymph % (Auto) 24.3, [place] % (Auto) 7.4, Eos % (Auto) 1.6, Baso % (Auto) 0.4, Absolute Neuts (auto) 6.8, Absolute Lymphs (auto) 2.52, Nucleated RBC % 0, ESR 57 H, PT 13.7, INR 1.1, APTT 28.6, Sodium 133 L, Potassium 3.4 L, Chloride 100, Carbon Dioxide 28.0, Anion Gap 6, BUN 8, Creatinine 0.92, Estim Creat Clear Calc 122.49, Est GFR (MDRD) Af Amer 113, Est GFR (MDRD) Non-Af 93, BUN/Creatinine Ratio 8.7 L, Glucose 256 H, Calcium 9.4, Total Bilirubin 0.80, AST 7 L, ALT 11 L, Alkaline Phosphatase 97, C-React Prot Ext Range 34.40 H, Total Protein 8.1, Albumin 3.3, Globulin 4.8 H, Albumin/Globulin Ratio 0.7 L 08/29/24 14:15: S.aureus Protein A PCR NEGATIVE, MRSA (PCR) Negative 08/29/24 14:44: POC Glucose 348 H
--- NOTE | 2024-08-29 16:17 | ART_ITS ---
Reason For Study: PAIN Left Segmental Pressures Left posterior tibial artery = 190mmHg. Left dorsalis pedis artery = 187mmHg. The left posterior tibial artery waveforms are triphasic. The left dorsalis pedis waveforms are triphasic. Right Segmental Pressures Right brachial= 157mmHg. Right posterior tibial artery = 185mmHg. Right dorsalis pedis artery = 186mmHg. The right posterior tibial artery waveforms are triphasic. The right dorsalis pedis waveforms are triphasic. Indices The right resting ankle brachial index is 1.8. The right ankle brachial index by the posterior tibial artery is 1.18. The right ankle brachial index by the dorsalis pedis is 1.18. The right digital-brachial index is 0.99. The left resting ankle brachial index is 1.21. The left ankle brachial index by the posterior tibial artery is 1.21. The left ankle brachial index by the dorsalis pedis is 1.19. The left digital-brachial index is 0.80. VL/Lower Ext Art Exam w/o Exercis Interpretation Summary Right PAUL 1.18, normal. TBI and Doppler/PVR waveforms of the right leg normal a t rest. Left PAUL 1.21, normal. TBI and Doppler/PVR waveforms of the left leg normal at rest. Ordering Physician: Rosendo Archibald Referring Physician: OTD Performed By: Iqra Roman RVT, RDCS
--- NOTE | 2024-08-29 16:25 | RAD_ITS ---
EXAM: XR LEFT FOOT COMPLETE, 3 OR MORE VIEWS CLINICAL INDICATION: r/o osteomyelitis TECHNIQUE: Frontal, lateral and oblique views of the left foot. COMPARISON: No relevant prior studies available. FINDINGS: BONES/JOINTS: Unremarkable. No acute fracture. No subluxation. Normal alignment. Preservation of the joint space. No sclerotic or destructive changes observed. SOFT TISSUES: Unremarkable. No soft tissue swelling or gas. No radiopaque foreign body. RAD/Foot min 3 Views IMPRESSION: No plain film evidence of osteomyelitis. Consider follow-up with MRI if there is continued clinical concern. Electronically Signed: Nilo Busch MD at 23:52 EDT ,
[2024-08-29] MEDS: glipiZIDE 5 MG Tablet PO (16:50)
[2024-08-29 17:17] VITALS: BP 148/92; PULSE 83; RESP 18; TEMP 36.9; O2SAT 94
[2024-08-29 19:42] VITALS: BP 151/102; PULSE 93; RESP 18; TEMP 37.1; O2SAT 100
[2024-08-29] MEDS: Vancomycin HCl 1,250 MG in 0.9% Normal Saline (250mL Bag) 250 ML 167 MG IV (19:50)
[2024-08-29] MEDS: Gabapentin 300 MG Capsule PO (21:27)
[2024-08-29] MEDS: Atorvastatin Calcium 20 MG Tablet PO (21:27)
[2024-08-29 22:02] LABS: Bedside Glucose 419 mg/dL (74-106)
[2024-08-30] MEDS: Vancomycin HCl 1,250 MG in 0.9% Normal Saline (250mL Bag) 250 ML 167 MG IV ×3 (04:04→20:30)
[2024-08-30 04:05] VITALS: BP 170/94; PULSE 85; RESP 18; TEMP 36.6; O2SAT 99
[2024-08-30 04:17] VITALS: BP 170/94; PULSE 85
[2024-08-30] MEDS: Metoprolol(XL)Succ 50 MG Tablet PO (04:17)
[2024-08-30] MEDS: Insulin Lispro 100 UNIT/ML INSULN.PEN SC ×4 (06:40→20:37)
[2024-08-30] MEDS: Piperacil/Tazobactam 3.375 GM in 0.9% Normal Saline (50mL MB+) 50 ML IV ×2 (06:42→22:48)
[2024-08-30] MEDS: Pantoprazole Sodium 20 MG Tablet PO (06:42)
[2024-08-30 06:51] LABS: Absolute Lymphocyte Count 2.44 X10^3/uL (0.83-4.51); Absolute Neutrophil Count 4.2 X10^3/uL (2.0-7.7); Basophil# 0.03 X10^3/uL; Basophil% 0.4 % (0-1); Eosinophil# 0.21 X10^3/uL; Eosinophils% 2.8 % (0-5); Hematocrit 37.7 % (40-54); Hemoglobin 12.8 g/dL (13.0-16.5); Lymphocyte # 2.44 X10^3/ul (0.83-4.51); Lymphocyte % 32.7 % (19-41); Mean Corpuscular Hgb 27.1 pg (27.0-32.0); Mean Corpuscular Volume 79.9 fL (80-94); Mean Platelet Vol. 9.9 fl (6.2-12.0); NRBC Flagged by Analyzer 0 % (0-5); Neutrophil # 4.16 X10^3/uL (2.7-7.7); Neutrophil % 55.8 % (47-70); Platelet Count 210 K/mm3 (150-450); RBC Distribution Width CV 12.1 % (11.6-14.6); Red Blood Count 4.72 M/mm3 (4.6-6.2); White Blood Count 7.5 K/mm3 (4.4-11.0)
[2024-08-30 07:20] LABS: Anion Gap 5 (5-15); BUN 10 mg/dL (7-18); BUN/Creat Ratio 11.9 RATIO (10-20); Calcium,Total 8.6 mg/dL (8.5-10.1); Chloride 104 mmol/L (98-107); Creatinine, Serum 0.84 mg/dL (0.70-1.30); EST Glomerular Filtration Rate 103 mL/min (>60); Est Glom Filt Rate - Afr Amer 125 mL/min (>60); Estimated Creatinine Clearance 134.94 ml/min; Glucose 308 mg/dL (74-106); Potassium 3.5 mmol/L (3.5-5.1); Sodium Level 136 mmol/L (136-145)
--- NOTE | 2024-08-30 08:02 | PCM.PN.SRG ---
Subjective Subjective Mr. Jefferson is a 49-year-old diabetic male seen at bedside today after being admitted yesterday for worsening cellulitis to the left foot. Patient was getting his pulse volume recordings to the bilateral lower extremity and shows evidence of triphasic pulses per the vascular nurse. Patient denies any events overnight. Denies trauma. Denies constitutional symptoms. No other pedal complaints at this time. Objective Data Objective Data Vital Signs: Vital Signs Temp Pulse Resp BP Pulse Ox O2 Del Method 97.8 F 85 18 170/94 H 99 Room Air 08/30/24 04:05 08/30/24 04:17 08/30/24 04:05 08/30/24 04:17 08/30/24 04:05 08/30/24 04:05 Oxygen Delivery Method Room Air Weight: 100.9 kg Body Mass Index (BMI) 28.5 Intake & Output: Intake and Output for Last 24 Hours 08/28/24 08/29/24 08/30/24 23:59 23:59 23:59 Intake Total 865 / 1165 1125 / 1125 Balance 865 / 1165 1125 / 1125 Lab / Micro Data 08/30/24 06:35 08/30/24 06:35 Labs: Laboratory Results - last 24 hr 08/29/24 10:45: WBC 10.4, RBC 5.45, Hgb 14.6, Hct 43.1, MCV 79.1 L, MCH 26.8 L, MCHC 33.9, RDW Std Deviation 34.5 L, RDW Coeff of Jen 12.2, Plt Count 245, MPV 10.6, Immature Gran % (Auto) 0.400, Neut % (Auto) 65.9, Lymph % (Auto) 24.3, Alexander % (Auto) 7.4, Eos % (Auto) 1.6, Baso % (Auto) 0.4, Absolute Neuts (auto) 6.8, Absolute Lymphs (auto) 2.52, Nucleated RBC % 0, ESR 57 H, PT 13.7, INR 1.1, APTT 28.6, Sodium 133 L, Potassium 3.4 L, Chloride 100, Carbon Dioxide 28.0, Anion Gap 6, BUN 8, Creatinine 0.92, Estim Creat Clear Calc 122.49, Est GFR (MDRD) Af Amer 113, Est GFR (MDRD) Non-Af 93, BUN/Creatinine Ratio 8.7 L, Glucose 256 H, Calcium 9.4, Total Bilirubin 0.80, AST 7 L, ALT 11 L, Alkaline Phosphatase 97, C-React Prot Ext Range 34.40 H, Total Protein 8.1, Albumin 3.3, Globulin 4.8 H, Albumin/Globulin Ratio 0.7 L 08/29/24 14:15: S.aureus Protein A PCR NEGATIVE, MRSA (PCR) Negative 08/29/24 14:44: POC Glucose 348 H 08/29/24 21:25: POC Glucose 419 H 08/30/24 06:35: WBC 7.5, RBC 4.72, Hgb 12.8 L, Hct 37.7 L, MCV 79.9 L, MCH 27.1, MCHC 34.0, RDW Std Deviation 35.0 L, RDW Coeff of Jen 12.1, Plt Count 210, MPV 9.9, Immature Gran % (Auto) 0.300, Neut % (Auto) 55.8, Lymph % (Auto) 32.7, Alexander % (Auto) 8.0, Eos % (Auto) 2.8, Baso % (Auto) 0.4, Absolute Neuts (auto) 4.2, Absolute Lymphs (auto) 2.44, Nucleated RBC % 0, Sodium 136, Potassium 3.5, Chloride 104, Carbon Dioxide 28.0, Anion Gap 5, BUN 10, Creatinine 0.84, Estim Creat Clear Calc 134.94, Est GFR (MDRD) Af Amer 125, Est GFR (MDRD) Non-Af 103, BUN/Creatinine Ratio 11.9, Glucose 308 H, Calcium 8.6 Radiography Diagnostic Testing: Radiology Impression Foot X-Ray 08/29/24 16:25 IMPRESSION: No plain film evidence of osteomyelitis. Consider follow-up with MRI if there is continued clinical concern. Electronically Signed: Nilo Busch MD at 23:52 EDT , Physical Exam Narrative Vascular: DP and PT pulse are palpable to the left lower extremity. CFT is brisk. Nonblanchable erythema appreciated to the first metatarsal phalangeal joint at the level of the hallux, proximal streaking is noted, slight improvement. Skin temperature gradient is warm to warm from proximal ankle to distal digit. Focal increase appreciated to the left great toe, improving Neurological: Light touch intact. Protective sensation is absent. Dermatological: Full-thickness ulceration measuring 0.7 x 0.7 x 1.4 cm to the plantar left hallux, probe to muscle and periosteum. There is some slight undermining towards the proximal martin. Erythema with proximal streaking, improving. Musculoskeletal: No pain with palpation to the full-thickness wound or with range of motion to the left big toe joint. No pain with calf pressure. Const alert, oriented x3 and no apparent distress Assessment & Plan Assessment/Plan (1) Cellulitis of left foot: PLAN: Patient was examined and evaluated. All findings were discussed with the patient. All questions were answered to the patient satisfaction. Three-view nonweightbearing left foot radiographs (08/29/2024): Evidence of plantar defect to the proximal phalanx with possible periosteal reaction to the midshaft of the proximal phalanx. No emphysema. Left lower extremity MRI (08/20/2024): Shows evidence of ulceration to the plantar medial aspect of the proximal phalanx of the left hallux. Generalized edema. Mild subcutaneous soft tissue edema. No emphysema. No sign of osteomyelitis. Wound cultures (07/25/2024): Enterococcus faecalis, Staphylococcus epidermidis Will plan for OR Tuesday consisting of incision and drainage with incision of bone cortex to the left hallux with possible delayed primary closure, left foot. Patient to be n.p.o. midnight tonight. WBC: 10.4 -> 7.5 ESR: 57 CRP: 34.40 Glucose: 256 -> 308 HbA1c: pending PVRs: Pending Medicine: On board, medical management, IV antibiotics vancomycin and Zosyn. Infectious disease: Consult pending Podiatry will continue to follow while patient is in house. The left plantar hallux full-thickness wound was dressed with Betadine soaked gauze packing, 4 x 4's, Kerlix wrap and Jensen bandage bu Nursing. Please reach out to Dr. Archibald with any questions or concerns. (2) Osteomyelitis of toe of left foot: (3) Chronic painful diabetic polyneuropathy: (4) Non-pressure chronic ulcer of other part of left foot with necrosis of muscle: (5) Other specified peripheral vascular diseases:
--- NOTE | 2024-08-30 09:24 | PN_ITS ---
Subjective Subjective Patient seen and examined. He had no complaints and had an uneventful night. Review of systems is otherwise negative. He has remained hemodynamically stable. He is due for the bone biopsy by podiatry tomorrow. Objective Data Objective Data Vital Signs: Vital Signs Temp Pulse Resp BP Pulse Ox O2 Del Method 97.8 F 85 18 170/94 H 99 Room Air 08/30/24 04:05 08/30/24 04:17 08/30/24 04:05 08/30/24 04:17 08/30/24 04:05 08/30/24 04:05 Oxygen Delivery Method Room Air Weight: 222 lb 7.143 oz Body Mass Index (BMI) 28.5 Intake & Output: Intake and Output for Last 24 Hours 08/28/24 08/29/24 08/30/24 23:59 23:59 23:59 Intake Total 865 / 1165 1125 / 1125 Balance 865 / 1165 1125 / 1125 Lab / Micro Data 08/30/24 06:35 08/30/24 06:35 Labs: Laboratory Results - last 24 hr 08/29/24 10:45: WBC 10.4, RBC 5.45, Hgb 14.6, Hct 43.1, MCV 79.1 L, MCH 26.8 L, MCHC 33.9, RDW Std Deviation 34.5 L, RDW Coeff of Jen 12.2, Plt Count 245, MPV 10.6, Immature Gran % (Auto) 0.400, Neut % (Auto) 65.9, Lymph % (Auto) 24.3, [place] % (Auto) 7.4, Eos % (Auto) 1.6, Baso % (Auto) 0.4, Absolute Neuts (auto) 6.8, Absolute Lymphs (auto) 2.52, Nucleated RBC % 0, ESR 57 H, PT 13.7, INR 1.1, APTT 28.6, Sodium 133 L, Potassium 3.4 L, Chloride 100, Carbon Dioxide 28.0, Anion Gap 6, BUN 8, Creatinine 0.92, Estim Creat Clear Calc 122.49, Est GFR (MDRD) Af Amer 113, Est GFR (MDRD) Non-Af 93, BUN/Creatinine Ratio 8.7 L, G lucose 256 H, Calcium 9.4, Total Bilirubin 0.80, AST 7 L, ALT 11 L, Alkaline Phosphatase 97, C-React Prot Ext Range 34.40 H, Total Protein 8.1, Albumin 3.3, Globulin 4.8 H, Albumin/Globulin Ratio 0.7 L 08/29/24 14:15: S.aureus Protein A PCR NEGATIVE, MRSA (PCR) Negative 08/29/24 14:44: POC Glucose 348 H 08/29/24 21:25: POC Glucose 419 H 08/30/24 06:35: WBC 7.5, RBC 4.72, Hgb 12.8 L, Hct 37.7 L, MCV 79.9 L, MCH 27.1, MCHC 34.0, RDW Std Deviation 35.0 L, RDW Coeff of Jen 12.1, Plt Count 210, MPV 9.9, Immature Gran % (Auto) 0.300, Neut % (Auto) 55.8, Lymph % (Auto) 32.7, [place] % (Auto) 8.0, Eos % (Auto) 2.8, Baso % (Auto) 0.4, Absolute Neuts (auto) 4.2, Absolute Lymphs (auto) 2.44, Nucleated RBC % 0, Sodium 136, Potassium 3.5, Chloride 104, Carbon Dioxide 28.0, Anion Gap 5, BUN 10, Creatinine 0.84, Estim Creat Clear Calc 134.94, Est GFR (MDRD) Af Amer 125, Est GFR (MDRD) Non-Af 103, BUN/Creatinine Ratio 11.9, Glucose 308 H, Calcium 8.6 Radiography Diagnostic Testing: Radiology Impression Foot X-Ray 08/29/24 16:25 IMPRESSION: No plain film evidence of osteomyelitis. Consider follow-up with MRI if there is continued clinical concern. Electronically Signed: Nilo Busch MD at 23:52 EDT , Physical Exam Const alert, oriented x3 and no apparent distress General Appearance: cooperative and well developed HEENT normocephalic, head/scalp atraumatic, hearing grossly normal bilaterally, moist oral mucous membranes and oropharynx normal Eyes PERRL, EOMs intact bilaterally and conjunctivae normal Neck no lymphadenopathy, supple and no JVD Resp normal respiratory effort, no retractions, no use of accessory muscles and clear to auscultation bilaterally Cardio regular rate, regular rhythm, S1 normal heart sound, S2 normal heart sound and no murmurs GI normal to inspection, nondistended, normoactive bowel sounds and soft to palpation Extremity Extremity Narrative: left foot wrapped in bandage. Skin Skin Narrative: as under extremity Neuro oriented x3, CN's II-XII intact bilaterally, moves all extremities and no focal motor deficits Sensorium / Orientation: awake and alert Motor Exam: strength 5/5 throughout Psych affect normal Assessment & Plan Assessment/Plan (1) Cellulitis of left foot: (2) Diabetic ulcer of left foot: (3) Osteomyelitis of toe of left foot: (4) Failure of outpatient treatment: PLAN: Plan #Diabetic foot ulcer and cellulitis with osteomyelitis * failed outpatient treatment * He had MRI of the left foot on 08/20/2024 which showed focal skin ulceration and no evidence of osteomyelitis and and mild subcutaneous soft tissue edema along the dorsum of the foot. There was no evidence of osteomyelitis. * he is to have a bone biopsy on Tuesday * office sweeper wanted to start him on PO linezolid on outpatient basis but was pending insurance approval * podiatry and ID on board * on IV vancomycin and zosyn * blood and wound cultures pending. * #TYpe 2 diabetes mellitus * on glipizide * on lantus 24 units daily. ISS. Accuchecks ACHS * A1C is pending. * #Hyperlipidemia: on statin #Hypertension: * on lisinopril and metoprolol.BP is elevated this morning, with systolic in the 170s. * He has not yet received his BP meds. IV hydralazine prn * If BP remains elevated, will adjust BP meds. DVT prophylaxis: lovenox Code status: full code * Charges/Coding Visit Charges Inpatient E&M: 78194 Subs Hosp L2
--- NOTE | 2024-08-30 10:11 | CASEMGMT ---
MIGUE BUCIO Assessment Face to Face with patient for initial transition planning/care coordination assessment. MIGUE BUCIO introduced self and role at [facility], pt voices understanding. Pt is A&Ox4 and is resting comfortably in bed and is calm. Care providers, pharmacy, and demographics verified. Admitting dx:Diabetic Foot Infection LACE Strata: 2 PCP: Ivette Chauhan Specialists: Dr. Archibald (Podiatry). Pt sees Dr. Archibald at the [facility]. Pt states that he sees an Dispensing Optician Apprentice but does not recall the name of the specialist Preferred Pharmacy: [facility] Insurance:[email or web address] Prescription Benefit: Yes LNOK: Brandon Jefferson (Father) Living Arrangements: Pt lives alone on the second level of an apartment complex with 8-9 steps to enter from the front and 4-5 steps to access from the back ADLs/IADLs: States ind Transportation: Self, father. Denies concerns DME: CBGM, insulin, and sufficient supplies. Cane. BP Monitor. Denies further needs at this time HHC/SNF: Denies history Wound: Pt states that he has been going to the [facility] under Dr. Archibald and has also been caring for the wound himself at home. Per chart review, it appears that the pt was recently prescribed with new antibiotics but was unable to receive these as the insurance would not cover them. Pt?s goal: Home Plan: Anticipate home with IV ATBs. 6-Click is 23. PT/OT to follow. ID, Podiatry, and wound RN consulted. Pt is planned for an I&D on Tuesday. Pt states that he was told by the MD that I am going to be here through the weekend. Pt reports that he may getting a PICC placed. Pt educated about the process of home with IV ATBs. Pt states that he will be the teachable caregiver. Pt educated that CM will provide the pt with a list of local in-network HHC companies and infusion companies to select from. Pt states, I don't care, as long as the Doctor agrees with it. Pt denies further questions at this time. Report given to MS3 MIGUE BUCIO. Byron Hinds RN, CM
--- NOTE | 2024-08-30 10:16 | CASEMGMT ---
TC to [facility] pharmacy, pt linezolid needs PA. Received phone number of and ID#[id number] should pt need this med upon dc. RN CM to follow.
--- NOTE | 2024-08-30 11:04 | CON.PCM.ID_ITS ---
Assessment & Plan Assessment/Plan (1) Chronic painful diabetic polyneuropathy: (2) Cellulitis of left foot: PLAN: On vanc/zosyn, OR planned Will follow, thank you HPI Consult Data Date of Consult: 08/30/24 HPI Narrative Reason for Consultation: foot infection HPI Narrative: SHEREE QUILES, is a 49 M with DM neuropathy, presented with wound since June on L foot. Over past week, new progressive throbbing pain, redness, swelling, some drainage. Saw wound center, started levaquin, cx was done, MRI done, linezolid was ordered but not approved. Came to ED, admitted on vanc/zosyn. Feeling ok, no fever, no n/v/d. Full ROS performed and neg except as noted above. [facility], [facility] Medical History Anxiety Diabetes Smoker BiPAP (biphasic positive airway pressure) dependence Hypertension DVT (deep venous thrombosis) Myocardial infarct Home Medications ?Medication ?Instructions ?Recorded ?Last Taken ?Type blood-glucose meter,continuous 07/25/24 Unknown History (Dexcom G6 Retail Leasing Agent) blood-glucose sensor (Dexcom G7 07/25/24 Unknown History Sensor device) blood-glucose transmitter (Dexcom 07/25/24 Unknown History G6 Transmitter device) gabapentin 300 mg capsule 300 mg PO BID NERVE PAIN 07/25/24 Unknown History glipizide 5 mg tablet 5 mg PO BID 07/25/24 08/28/24 History insulin aspart U-100 100 unit/mL See Protocol subcut TID 07/25/24 08/28/24 History (3 mL) subcutaneous pen (Novolog FlexPen U-100 Insulin aspart) insulin glargine 100 unit/mL (3 30 unit subcut DAILY 07/25/24 08/28/24 History mL) subcutaneous pen (Lantus Solostar U-100 Insulin) metoprolol succinate 50 mg 50 mg PO DAILY BLOOD PRESSURE 07/25/24 Unknown History tablet,extended release 24 hr sertraline 25 mg tablet 25 mg PO DAILY 07/25/24 08/15/24 History linezolid 600 mg tablet 600 mg PO Q12H ANTIBIOTIC 14 days 08/27/24 Unknown Rx #28 tabs atorvastatin 20 mg tablet 20 mg PO QHS 08/29/24 08/28/24 History bismuth subsalicylate 262 mg 524 mg PO Q30M PRN diarrhea 08/29/24 Unknown History tablet (Digestive Relief) lisinopril 40 mg tablet 40 mg PO DAILY 08/29/24 08/28/24 History omeprazole 20 mg capsule,delayed 20 mg PO 0700 08/29/24 08/28/24 History release Allergy/AdvReac Type Severity Reaction Status Date / Time No Known Allergies Allergy Verified 08/29/24 10:27 Surgical History History of coronary artery stent placement Social History Smoking Status: Former smoker Physical Exam Const alert, oriented x3 and no apparent distress General Appearance: cooperative HEENT normocephalic and head/scalp atraumatic Eyes PERRL and EOMs intact bilaterally Neck supple and No nodes Resp normal air movement and clear to auscultation bilaterally Cardio regular rate and regular rhythm GI soft to palpation, non-tender and non-distended Extremity General Extremity: edema Skin Skin Narrative: reviewed photos L foot Neuro CN's II-XII intact bilaterally Lab / Micro Data Attestation: I reviewed the patient's lab results. 08/30/24 06:35 08/30/24 06:35 Labs: Laboratory Results - last 24 hr 08/29/24 10:45: WBC 10.4, RBC 5.45, Hgb 14.6, Hct 43.1, MCV 79.1 L, MCH 26.8 L, MCHC 33.9, RDW Std Deviation 34.5 L, RDW Coeff of Jen 12.2, Plt Count 245, MPV 10.6, Immature Gran % (Auto) 0.400, Neut % (Auto) 65.9, Lymph % (Auto) 24.3, [place] % (Auto) 7.4, Eos % (Auto) 1.6, Baso % (Auto) 0.4, Absolute Neuts (auto) 6.8, Absolute Lymphs (auto) 2.52, Nucleated RBC % 0, ESR 57 H, PT 13.7, INR 1.1, APTT 28.6, Sodium 133 L, Potassium 3.4 L, Chloride 100, Carbon Dioxide 28.0, Anion Gap 6, BUN 8, Creatinine 0.92, Estim Creat Clear Calc 122.49, Est GFR (MDRD) Af Amer 113, Est GFR (MDRD) Non-Af 93, BUN/Creatinine Ratio 8.7 L, G lucose 256 H, Calcium 9.4, Total Bilirubin 0.80, AST 7 L, ALT 11 L, Alkaline Phosphatase 97, C-React Prot Ext Range 34.40 H, Total Protein 8.1, Albumin 3.3, Globulin 4.8 H, Albumin/Globulin Ratio 0.7 L 08/29/24 14:15: S.aureus Protein A PCR NEGATIVE, MRSA (PCR) Negative 08/29/24 14:44: POC Glucose 348 H 08/29/24 21:25: POC Glucose 419 H 08/30/24 06:35: WBC 7.5, RBC 4.72, Hgb 12.8 L, Hct 37.7 L, MCV 79.9 L, MCH 27.1, MCHC 34.0, RDW Std Deviation 35.0 L, RDW Coeff of Jen 12.1, Plt Count 210, MPV 9.9, Immature Gran % (Auto) 0.300, Neut % (Auto) 55.8, Lymph % (Auto) 32.7, [place] % (Auto) 8.0, Eos % (Auto) 2.8, Baso % (Auto) 0.4, Absolute Neuts (auto) 4.2, Absolute Lymphs (auto) 2.44, Nucleated RBC % 0, Sodium 136, Potassium 3.5, Chloride 104, Carbon Dioxide 28.0, Anion Gap 5, BUN 10, Creatinine 0.84, Estim Creat Clear Calc 134.94, Est GFR (MDRD) Af Amer 125, Est GFR (MDRD) Non-Af 103, BUN/Creatinine Ratio 11.9, Glucose 308 H, Calcium 8.6 Micro: Microbiology 08/29/24 14:15 Wound - Left Foot Gram Stain - Final Imaging Radiology Impression Foot X-Ray 08/29/24 16:25 IMPRESSION: No plain film evidence of osteomyelitis. Consider follow-up with MRI if there is continued clinical concern. Electronically Signed: Nilo Busch MD at 23:52 EDT ,
[2024-08-30 12:00] LABS: Vancomycin, Trough Level 20.5 ug/mL (5.0-15.0)
[2024-08-30] MEDS: glipiZIDE 5 MG Tablet PO ×2 (12:11→18:27)
[2024-08-30] MEDS: Lisinopril 40 MG Tablet PO (12:11)
[2024-08-30] MEDS: Enoxaparin 40 MG/0.4 ML Syringe SC (12:12)
[2024-08-30] MEDS: Sertraline 50 MG Tablet 25 MG PO (12:12)
[2024-08-30] MEDS: Insulin Glargine-YFGN 100 UNIT/ML Pen 30 UNIT SC (12:15)
--- NOTE | 2024-08-30 12:37 | PCM.RX.CS ---
Consult Antibiotic Management Pharmacy has been consulted to manage selected antibiotic: Vancomycin Type of Intervention Type of Consult: Follow-up Suspected Infection Suspected Infection: Skin/Soft tissue Prior Doses of Antibiotics Prior Doses of Antibiotics Received/Current Regimen: 08/29/24 @ 1140 2000mg given 08/29/24 @ 1950 1250mg given 08/30/24 @ 0404 1250mg given Labs Labs: Sodium 136 mmol/L (136-145) 08/30/24 06:35 Potassium 3.5 mmol/L (3.5-5.1) 08/30/24 06:35 Chloride 104 mmol/L (98-107) 08/30/24 06:35 Carbon Dioxide 28.0 mmol/L (21.0-32.0) 08/30/24 06:35 Anion Gap 5 (5-15) 08/30/24 06:35 BUN 10 mg/dL (7-18) 08/30/24 06:35 Creatinine 0.84 mg/dL (0.70-1.30) 08/30/24 06:35 Est GFR (MDRD) Af Amer 125 mL/min (>60) 08/30/24 06:35 Est GFR (MDRD) Non-Af 103 mL/min (>60) 08/30/24 06:35 BUN/Creatinine Ratio 11.9 RATIO (10-20) 08/30/24 06:35 Glucose 308 mg/dL (74-106) H 08/30/24 06:35 Vancomycin Trough 20.5 ug/mL (5.0-15.0) H 08/30/24 11:10 Microbiology Microbiology: Microbiology 08/29/24 14:15 Wound - Left Foot Gram Stain - Final Dosing Weight Weight used for dosin kg Estimated Creatinine Clearance Estimated Creatinine Clearance: 135 Goal Trough Goal Trough: 15-20 mcg/mL Pharmacy Plan for Drug Dosing Pharmacy Plan for Drug Dosing: Continue Vancomycin 1250mg every 8 hours Pharmacy Service will continue to monitor and adjust dosing as required. Follow-Up Labs Follow-Up Labs: Trough: Vancomycin Date/Time Labs Ordered Labs to be done on [date and time ordered]: 08/31/24 @ 1230
[2024-08-30] MEDS: Gabapentin 300 MG Capsule PO ×2 (13:25→20:35)
[2024-08-30 13:46] LABS: Bedside Glucose 354 mg/dL (74-106)
[2024-08-30 14:00] LABS: Bedside Glucose 332 mg/dL (74-106)
[2024-08-30 14:00] LABS: Bedside Glucose 309 mg/dL (74-106)
[2024-08-30 14:02] LABS: Hemoglobin A1c 11.1 % (3.8-5.6)
--- NOTE | 2024-08-30 14:14 | CASEMGMT ---
Social Work- SW met with pt to complete SDOH. Pt states that he has not been working d/t his foot and does not have gas money for transportation to appointments. Pt dad often takes him, but drives Religious and is not available all the time. SW provided transportation resources. MARIAN Raoms
[2024-08-30] MEDS: FLU VACC 2024-25(6MOS UP)/PF 45 MCG/0.5 ML SYRINGE IM (15:10)
--- NOTE | 2024-08-30 15:41 | CASEMGMT ---
Discharge Planning A list of?HH providers including quality and resource use data and consistent with the patient's preferred geographic region, medical needs, and insurance network was created in [employer] Guide.? This list was provided to the RN FORTUNATO. Hilary Mckeon, Discharge Planning Asst.
[2024-08-30 18:53] LABS: Bedside Glucose 340 mg/dL (74-106)
[2024-08-30 20:30] VITALS: BP 159/100; PULSE 73; RESP 18; TEMP 36.7; O2SAT 100
[2024-08-30] MEDS: Atorvastatin Calcium 20 MG Tablet PO (20:32)
[2024-08-30 22:14] VITALS: BMI 28.5
[2024-08-30 23:07] LABS: Bedside Glucose 300 mg/dL (74-106)
[2024-08-31] VITALS (11 sets, daily range): BP systolic 114–182; BP diastolic 73–103; PULSE 70–96; RESP 16–18; TEMP 36.6–37.4; O2SAT 94–99; BMI 28.5
[2024-08-31] MEDS: Vancomycin HCl 1,250 MG in 0.9% Normal Saline (250mL Bag) 250 ML 167 MG IV (04:36)
--- NOTE | 2024-08-31 05:00 | EKG12_ITS ---
Test Reason : AM EKG Blood Pressure : / mmHG Vent. Rate : 080 BPM Atrial Rate : 080 BPM P-R Int : 154 ms QRS Dur : 096 ms QT Int : 390 ms P-R-T Axes : 061 051 001 degrees QTc Int : 449 ms Normal sinus rhythm Possible Inferior infarct , age undetermined Abnormal ECG No previous ECGs available Confirmed by SOREN KIM, MAYE ([id number]), tape editor CARIDAD BATES ([id number]) on 09/04/2024 11:33:29 AM Referred By: Anthony Cardona Confirmed By:MAYE DOTY MD
[2024-08-31] MEDS: Piperacil/Tazobactam 3.375 GM in 0.9% Normal Saline (50mL MB+) 50 ML IV ×2 (06:43→21:03)
[2024-08-31 07:05] LABS: Bedside Glucose 295 mg/dL (74-106)
[2024-08-31 07:16] LABS: Absolute Lymphocyte Count 1.69 X10^3/uL (0.83-4.51); Absolute Neutrophil Count 4.2 X10^3/uL (2.0-7.7); Basophil# 0.03 X10^3/uL; Basophil% 0.4 % (0-1); Eosinophil# 0.18 X10^3/uL; Eosinophils% 2.6 % (0-5); Lymphocyte # 1.69 X10^3/ul (0.83-4.51); Lymphocyte % 24.6 % (19-41); Mean Corp Hgb Conc 33.3 g/dL (32-36); Mean Corpuscular Hgb 26.9 pg (27.0-32.0); Mean Corpuscular Volume 80.7 fL (80-94); Mean Platelet Vol. 10.2 fl (6.2-12.0); Monocyte# 0.76 X10^3/uL; Monocyte% 11.1 % (0-10); NRBC Flagged by Analyzer 0 % (0-5); Neutrophil # 4.18 X10^3/uL (2.7-7.7); Platelet Count 217 K/mm3 (150-450); RBC Distribution Width SD 34.9 fl (35.1-43.9); Red Blood Count 4.83 M/mm3 (4.6-6.2); White Blood Count 6.9 K/mm3 (4.4-11.0)
--- NOTE | 2024-08-31 07:23 | WOUNDNOTE ---
Pt going to surgery today. will leave dressing in place.
[2024-08-31 07:47] LABS: Anion Gap 6 (5-15); BUN 13 mg/dL (7-18); BUN/Creat Ratio 16.2 RATIO (10-20); Calcium,Total 8.7 mg/dL (8.5-10.1); Chloride 103 mmol/L (98-107); EST Glomerular Filtration Rate 109 mL/min (>60); Est Glom Filt Rate - Afr Amer 131 mL/min (>60); Estimated Creatinine Clearance 141.68 ml/min; Glucose 314 mg/dL (74-106); Potassium 3.9 mmol/L (3.5-5.1); Sodium Level 136 mmol/L (136-145)
--- NOTE | 2024-08-31 10:44 | PN_ITS ---
Subjective Subjective Patient seen and examined. He had no complaints. He is due for surgery today. Review of systems otherwise negative. Blood pressure has been elevated was 182/95 early this morning. Review of systems otherwise negative. Objective Data Objective Data Vital Signs: Vital Signs Temp Pulse Resp BP Pulse Ox O2 Del Method 98.9 F 82 18 182/95 H 98 Room Air 08/31/24 03:33 08/31/24 03:33 08/31/24 03:33 08/31/24 03:33 08/31/24 03:33 08/31/24 03:33 Oxygen Delivery Method Room Air Weight: 222 lb 7.143 oz Body Mass Index (BMI) 28.5 Intake & Output: Intake and Output for Last 24 Hours 08/29/24 08/30/24 08/31/24 23:59 23:59 23:59 Intake Total 865 / 1165 1725 / 1725 325 / 325 Balance 865 / 1165 1725 / 1725 325 / 325 Lab / Micro Data 08/31/24 07:00 08/31/24 07:00 Labs: Laboratory Results - last 24 hr 08/30/24 06:25: POC Glucose 332 H 08/30/24 06:27: POC Glucose 309 H 08/30/24 06:35: Hemoglobin A1c 11.1 H 08/30/24 11:10: Vancomycin Trough 20.5 H 08/30/24 12:05: POC Glucose 354 H 08/30/24 18:25: POC Glucose 340 H 08/30/24 20:37: POC Glucose 300 H 08/31/24 06:44: POC Glucose 295 H 08/31/24 07:00: WBC 6.9, RBC 4.83, Hgb 13.0, Hct 39.0 L, MCV 80.7, MCH 26.9 L, MCHC 33.3, RDW Std Deviation 34.9 L, RDW Coeff of Jen 12.0, Plt Count 217, MPV 10.2, Immature Gran % (Auto) 0.300, Neut % (Auto) 61.0, Lymph % (Auto) 24.6, M guanako % (Auto) 11.1 H, Eos % (Auto) 2.6, Baso % (Auto) 0.4, Absolute Neuts (auto) 4.2, Absolute Lymphs (auto) 1.69, Nucleated RBC % 0, Sodium 136, Potassium 3.9, Chloride 103, Carbon Dioxide 26.0, Anion Gap 6, BUN 13, Creatinine 0.80, Estim Creat Clear Calc 141.68, Est GFR (MDRD) Af Amer 131, Est GFR (MDRD) Non-Af 109, BUN/Creatinine Ratio 16.2, Glucose 314 H, Calcium 8.7 Micro: Microbiology 08/29/24 14:15 Wound - Left Foot Gram Stain - Final 08/29/24 14:15 Wound - Left Foot Wound Culture - Final Coag Negative Staph 08/29/24 10:45 Blood Culture (Wb) - Left Forearm Blood Culture - Preliminary No growth in 48 hours. Radiography Diagnostic Testing: Radiology Impression Extremity Arterial Study 08/29/24 16:17 Interpretation Summary Right PAUL 1.18, normal. TBI and Doppler/PVR waveforms of the right leg normal at rest. Left PAUL 1.21, normal. TBI and Doppler/PVR waveforms of the left leg normal at rest. Ordering Physician: Rosendo Archibald Referring Physician: OTD Performed By: Iqra Roman RVT, [facility] Physical Exam Const alert, oriented x3 and no apparent distress General Appearance: cooperative and well developed HEENT normocephalic, head/scalp atraumatic, hearing grossly normal bilaterally, moist oral mucous membranes and oropharynx normal Eyes PERRL, EOMs intact bilaterally and conjunctivae normal Neck no lymphadenopathy, supple and no JVD Lymph Lymphatic: no lymphadenopathy noted Resp normal respiratory effort, normal air movement, no retractions, no use of accessory muscles and clear to auscultation bilaterally Cardio regular rate, regular rhythm, S1 normal heart sound, S2 normal heart sound and no murmurs GI normal to inspection, nondistended, normoactive bowel sounds and soft to palpation Extremity Extremity Narrative: left foot wrapped in bandage. Skin Skin Narrative: as under extremity Neuro oriented x3, CN's II-XII intact bilaterally, moves all extremities and no focal motor deficits Sensorium / Orientation: awake and alert Motor Exam: strength 5/5 throughout Psych thought process normal, cooperative and affect normal Appearance: appropriate Assessment & Plan Assessment/Plan (1) Cellulitis of left foot: (2) Diabetic ulcer of left foot: (3) Osteomyelitis of toe of left foot: (4) Failure of outpatient treatment: PLAN: Plan #Diabetic foot ulcer and cellulitis with osteomyelitis * failed outpatient treatment * He had MRI of the left foot on 08/20/2024 which showed focal skin ulceration and no evidence of osteomyelitis and and mild subcutaneous soft tissue edema along the dorsum of the foot. There was no evidence of osteomyelitis. * he is to have a bone biopsy today * heel lining paster wanted to start him on PO linezolid on outpatient basis but was pending insurance approval * podiatry and ID on board * on IV vancomycin and zosyn * wound cultures growing coagulase negative Staph. Blood cultures are negative after 48 hours. * arterial Duplex was normal in both right and left lower extremities. * #TYpe 2 diabetes mellitus * on glipizide * on lantus 24 units daily. ISS. Accuchecks ACHS * A1C is 11.1. This indicates his diabetes is very poorly controlled. * will ensure he is compliant with his lantus before adjusting the dose of lantus. * #Hyperlipidemia: on statin #Hypertension: * on lisinopril and metoprolol.BP is elevated this morning, with systolic in the 170s. * amlodipine 10mg daily added on to the metoprolol 50mg daily and lisinopril 40mg daily. * IV hydralazine prn DVT prophylaxis: lovenox Code status: full code * Charges/Coding Visit Charges Inpatient E&M: 31480 Subs Hosp L2
[2024-08-31] MEDS: Insulin Lispro 100 UNIT/ML INSULN.PEN SC ×2 (11:11→21:02)
[2024-08-31] MEDS: Metoprolol(XL)Succ 50 MG Tablet PO (12:02)
--- NOTE | 2024-08-31 12:37 | PCM.PN.ID ---
Physical Exam Narrative Feeling ok, no fever, one episode diarrhea last night. Const alert and no apparent distress General Appearance: cooperative Resp normal air movement and clear to auscultation bilaterally Cardio regular rate and regular rhythm GI soft to palpation, non-tender and non-distended Skin no rashes or lesions noted Skin Narrative: foot wrapped ID ID: Route of nutrition/ use of supplements: [] Nutritional Intake: [] IV Site: [] Herndon Catheter: [] Assessment & Plan Assessment/Plan (1) Chronic painful diabetic polyneuropathy: (2) Cellulitis of left foot: PLAN: On vanc/zosyn, OR planned for today Will follow
--- NOTE | 2024-08-31 12:52 | OP.PCM_ITS ---
Problems Associated Problem List Diagnoses (1) Non-pressure chronic ulcer of other part of left foot with necrosis of muscle: (2) Osteomyelitis of toe of left foot: (3) Cellulitis of left foot: Report of Operation Date of Procedure: 08/31/24 Pre-Operative Diagnosis: 1. Full-thickness wound down to muscle, left hallux 2. Cellulitis, left lower extremity 3. Diabetes mellitus type 2 peripheral neuropathy Post-Operative Diagnosis: Same as preoperative diagnosis Surgery/Procedure Performed:: 1. Incision and drainage, left hallux 2. Incision of bone cortex, left hallux 3. Delayed primary closure, left hallux Surgeon: Rosendo Archibald licensed embalmer supervisor: Sharon Gaston Type of Anesthesia: General and Local Anesthesiologist: Joshua Kincaid Special Medications: Per anesthesia Specimen's removed: 1. Incision bone cortex, left hallux have to pathology and the other half to microbiology Drains: None Fluids Replaced: Per anesthesia Description of Procedure: Indications For Operation: Mr. Antony is a 49-year-old diabetic male who was admitted to [facility] for worsening cellulitis to left foot after failing 2 rounds of oral antibiotics as an outpatient. Patient is well-known to me at the wound care center and has failed outpatient oral antibiotics x 2 and multiple excisional debridements. Patient presented Tuesday of this week and showed evidence of worsening cellulitis to the left foot. Patient was instructed to present to the emergency department for admission under medicine for medical clearance for surgical intervention to the left foot with concerns of osteomyelitis and nonhealing ulceration to the plantar aspect of left hallux. At the time of admission patient had labs drawn and showed evidence of increased blood sugar greater than 200 mg/dL. It was discussed with the patient that he is an uncontrolled diabetic and due to his noncompliance he has failed outpatient oral antibiotics and will need a PICC line per infectious disease recommendation. Due to the worsening cellulitis and nonhealing wound to the plantar aspect of the left hallux it has been deemed necessary at this time to take patient operating room to perform the above procedure to help decrease his constant pain and heal the patient's wound and prevent any type of amputation. Additionally, it was discussed with the patient in great detail that if he fails PICC line antibiotics he will need to move forward with possible left first ray resection which she was understanding of. The nature of the problem, anticipated procedures, postop recovery/convalences and risk/complications include but not limited to infection, wound healing complications, digital amputation, hypertrophic scarring, numbness, tingling, chronic pain, CRPS, over and under correction, recurrence of deformity, DVT and or PE and the need for further surgery have been discussed in great detail with the patient. All questions have been answered to the patient's satisfaction. There are no guarantees given as to the outcome of the procedure. Description of Procedure: Under mild sedation, the patient was brought into the operating room and placed on the operating table in supine position. Once the patient was under general anesthesia with laryngeal mask airway, the left lower extremity was blocked using approximately 10 cc 0.5% Marcaine plain. Next, a well-padded ankle tourniquet was applied to the left lower extremity. Next, the left lower extremity was prepped and draped in normal aseptic manner. Next, a timeout was then undertaken verifying the correct patient, extremity, visibility of preoperative markings, availability of the equipment. Next, attention was directed to the left lower extremity. Using a 4 inch Esmarch, left lower extremity was exsanguinated and elevated to 60 degrees for 1 minute. Procedure #1: Incision and drainage, left hallux Next, attention was directed to the plantar aspect of the left hallux at the level of the full-thickness wound. Once the tourniquet was up the erythema to the big toe joint was gone suggesting that this is possibly a dependent rubor. The full-thickness wound was probed with a freer elevator down to bone and subcutaneous tissue to the level of the plantar hallux. No malodor was appreciated. No purulent drainage was appreciated. Infection has been improving. Next, a large 3 to 1 incision was carried down to subcutaneous tissue using a #15 blade and pickup. Continued blunt dissection was carried down to the body of the proximal phalanx of the left hallux. No evidence of purulent drainage noted. Prelavage cultures were taken and passed the back table to be sent off for microbiology culture and sensitivity. 3000 mL of pulse lavage was administered to the full-thickness wound. After pulse lavage or showed evidence of healthy granular tissue with evidence of fibrotic tissue. All fibrotic tissue was removed and discarded. Post lavage cultures were taken at this time and passed the back table to be sent off for microbiology culture and sensitivity. Procedure #2: Incision of bone cortex, left hallux Next, using mini C arm fluoroscopy and a Jamshidi needle, incision of bone cortex was performed at 2 locations on the proximal phalanx of the left hallux. Both of the bone specimens were divided in half and half was sent to microbiology for culture and sensitivity and the other half was sent to pathology for gross identification. The incision was flushed with copious normal saline. Procedure #3: Delayed primary closure, left hallux After the pulse lavage, the deep tissue showed evidence of granular tissue, the long flexor tendon was healthy. Medical decision making was deemed necessary to move forward with delayed primary closure. Healthy bleeding tissue was noted once the left ankle tourniquet was deflated. Reperfusion was noted instantly. The deep layer and skin was reapproximated and closed using 2-0 nylon in vertical mattress suture technique. The left lower extremities were cleaned and patted dry. The incision was dressed with Betadine soaked Adaptic, dry sterile dressing and a single layer Cabezas compression bandage was donned to left lower extremity. The patient tolerated the procedure and anesthesia well and apparent satisfactory condition and was transported to the PACU for further monitoring prior to discharge back to the floor. Vital signs stable and vascular status intact to all digits bilateral. Post Operative Plan: Weightbearing: Partial weightbearing to left heel with surgical shoe. Full weightbearing right lower extremity. Antibiotics: IV antibiotics are given as scheduled on the medical floor DVT Prophylaxis: Lovenox 40 mg Herndon: None Dressing: Betadine soaked Adaptic, dry sterile dressing single-layer Cabezas compression bandage to left lower extremity. X-Rays: Post-operative films taken on the operating room. Pain Medication: Per medicine Follow-up: Patient is cleared from a podiatry perspective once cultures have returned and infectious diseases has given there recommendations for PICC line antibiotics versus oral antibiotics at discharge and once patient is cleared by medicine team. Podiatry will continue to follow the patient was in his house. Thank you for letting to be involved in the patient's hospital and surgical care . Please reach out to Dr. Archibald for any questions or concerns. Grafts/Implants Used: None Complications None Admit VTE Documentation VTE Present on Admission: No VTE Mechan Device Prophylaxis: SCD's VTE Pharm Prophylaxis ordered?: Yes
--- NOTE | 2024-08-31 13:35 | PCM.RX.CS ---
Consult Antibiotic Management Pharmacy has been consulted to manage selected antibiotic: Vancomycin Type of Intervention Type of Consult: Follow-up Suspected Infection Suspected Infection: Skin/Soft tissue Prior Doses of Antibiotics Prior Doses of Antibiotics Received/Current Regimen: Vancomycin 1250 mg Q8H last dose given 08/31 @ 1276 Labs Labs: Sodium 136 mmol/L (136-145) 08/31/24 07:00 Potassium 3.9 mmol/L (3.5-5.1) 08/31/24 07:00 Chloride 103 mmol/L (98-107) 08/31/24 07:00 Carbon Dioxide 26.0 mmol/L (21.0-32.0) 08/31/24 07:00 Anion Gap 6 (5-15) 08/31/24 07:00 BUN 13 mg/dL (7-18) 08/31/24 07:00 Creatinine 0.80 mg/dL (0.70-1.30) 08/31/24 07:00 Est GFR (MDRD) Af Amer 131 mL/min (>60) 08/31/24 07:00 Est GFR (MDRD) Non-Af 109 mL/min (>60) 08/31/24 07:00 BUN/Creatinine Ratio 16.2 RATIO (10-20) 08/31/24 07:00 Glucose 314 mg/dL (74-106) H 08/31/24 07:00 Vancomycin Trough 21.0 ug/mL (5.0-15.0) H 08/31/24 12:23 Microbiology Microbiology: Microbiology 08/29/24 14:15 Wound - Left Foot Gram Stain - Final 08/29/24 14:15 Wound - Left Foot Wound Culture - Final Coag Negative Staph 08/29/24 10:45 Blood Culture (Wb) - Left Forearm Blood Culture - Preliminary No growth in 48 hours. Dosing Weight Weight used for dosin kg Estimated Creatinine Clearance Estimated Creatinine Clearance: ~142 Goal Trough Goal Trough: 15-20 mcg/mL Pharmacy Plan for Drug Dosing Pharmacy Plan for Drug Dosing: Vancomycin trough = 21.0, as this is the second trough that has been slightly elevated will reduce dose to 1000 mg Q8H with estimated trough of ~ 17. Pharmacy Service will continue to monitor and adjust dosing as required. Follow-Up Labs Follow-Up Labs: Trough: Vancomycin Date/Time Labs Ordered Labs to be done on [date and time ordered]: 09/01/24 @ 1305
[2024-08-31] MEDS: Vancomycin Trough/Random Due 1 LAB MC (15:12)
[2024-08-31] MEDS: Vancomycin IV 1,000 MG/200 ML BAG 200 MG IV (15:17)
[2024-08-31 15:44] LABS: Bedside Glucose 244 mg/dL (74-106)
--- NOTE | 2024-08-31 17:25 | BON_PTH ---
PATIENT: SHEREE QUILES LOC: MS3 U#:[id number] AGE/SX: 49/M ROOM: [facility] [place] RE08/29/[address]: Dr. Lyndon Crooks MD : 1975 BED: 1 DIS: 09/03/2024 SPEC #: [id number] RECD: 09/03/24 11:07 STATUS: CARITO NASH #: [id number] MAGED: 08/31/24 17:[address]: Rosendo Archibald DEPT: SURGICAL PATHOLOGY RECD BY: Ade Montoya ENTERED: 09/03/24 11:40 SP TYPE: Bone OTHR DR: MD Dr. Lyndon Cowan MD Dr. Rohini Kalisetti, MD Dr. Robert Leininger, MD Dr. Tony Le, DO Tissues: Bone of foot, NOS Procedures: Decalcification bone/plaque Surgery Specimen Level III Surgery Specimen Level IV HEADER OPERATION: Drainage, debridement, incision bone, cortex PRE-OP DIAGNOSIS: Osteomyelitis of toe of left foot TISSUE SUBMITTED: Incisional bone cortex left foot MICROSCOPIC DIAGNOSIS Left foot bone, bone biopsy: Reparative and reactive change. No evidence of malignancy. 09/04/2024 MICROSCOPIC DESCRIPTION Slides are reviewed. GROSS DESCRIPTION Received in fixative is one container labeled with the patient's name and designated Incisional bone cortex- left foot. The specimen consists of an elongated piece of bone measuring 0.5cm in length and 0.1cm in diameter. Two minute fragments of bone are also noted measuring in aggregate 0.3 x 0.2 x 0.1cm. The entire specimen is submitted in one cassette after decalcification. 09/03/2024 TC:5 CPT:54066,87816
--- NOTE | 2024-08-31 18:55 | PCM.PRE.AN2 ---
ASA Classification* ASA Classification ASA Classification: 3 Assessment & Plan Anesthesia* Anesthesia Assessment Anesthesia Assessment: Discussed sedation and/or anesthesia options, risks, benefits, and alternatives with patient/parents/legal guardian/POA. Questions invited. The patient/parents/legal guardian/POA seems to understand and agrees to proceed with anesthesia plan. Reviewed the physical assessment, medical history, allergy history and patient home medications list prior to surgery/procedure/anesthetic and documented any changes. Performed airway and anesthesia risk assessments. Anesthesia Type Anesthesia Type: General History Source History Obtained from:: Patient and Chart Anesthesia Focused Assessment* Temperature: 98.6 F Pulse Rate: 83 Blood Pressure: 168/103 Respiratory Rate: 16 Pulse Ox: 97 Airway Assessment Mouth opens: >3 cm Mallampati Score: III Teeth Condition: Intact (Poor dentition) and Chipped/Broken (Multiple chipped and broken.) Neck Range of motion (ROM): Full ROM Focused Labs Anesthesia Preop lab: CBC WBC 6.9 K/mm3 (4.4-11.0) 08/31/24 07:00 RBC 4.83 M/mm3 (4.6-6.2) 08/31/24 07:00 Hgb 13.0 g/dL (13.0-16.5) 08/31/24 07:00 Hct 39.0 % (40-54) L 08/31/24 07:00 Plt Count 217 K/mm3 (150-450) 08/31/24 07:00 CHEMISTRY Potassium 3.9 mmol/L (3.5-5.1) 08/31/24 07:00 Sodium 136 mmol/L (136-145) 08/31/24 07:00 BUN 13 mg/dL (7-18) 08/31/24 07:00 Creatinine 0.80 mg/dL (0.70-1.30) 08/31/24 07:00 Glucose 314 mg/dL (74-106) H 08/31/24 07:00 POC Glucose 244 mg/dL (74-106) H 08/31/24 15:25 COAG PT 13.7 SECONDS (11.7-14.9) 08/29/24 10:45 Pre-Assessment Diagnosis/Proposed Procedure Planned Operative Procedure(s): Irrigation and Debridement left foot Anesthesia History 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 When Was Last Pacemaker Check QUESTION #4 FULL TEXT: You/Your Family Experience fever (hyperthermia) with Anesthesia Last Oral Intake Last Oral intake: Last Oral Intake NPO since 00:00 08/31/24 15:27 Meds taken in AM with sips of Yes 08/31/24 15:27 water? Meds patient instructed to Metoprolol 50mg 08/31/24 15:27 take am of surgery PONV PONV - assistant county engineer: PONV - assistant county engineer Female HX of Motion Sickness HX of N/V After Surgery Non-Smoker Duration of Surgery greater than 60 minutes Number of Risk Factors PONV Score Height & Weight Height & Weight: Anesthesia: Height & Weight Height 6 ft 2.02 in 08/31/24 15:27 Weight: 100.9 kg 08/31/24 15:27 Body Mass Index (BMI) 28.5 08/31/24 15:27 Respiratory Assessment Respiratory Assessment - assistant county engineer: Respiratory Tract Infection Hx - assistant county engineer Hx Respiratory Tract Infection No 08/31/24 15:27 STOP Sleep Apnea STOP Sleep Apnea - assistant county engineer: STOP Sleep Apnea - assistant county engineer Hx Hypertension Yes 08/30/24 14:48 Hx Sleep Apnea No 08/29/24 12:33 CPAP No 08/29/24 12:33 BIPAP Do you snore loudly (louder No 08/29/24 12:33 than talking or can be heard Do you often feel tired/ Yes 08/29/24 12:33 fatigued/ sleepy during daytime? Has anyone observed you stop No 08/29/24 12:33 breathing during sleep? STOP Results Positive 08/29/24 12:33 QUESTION #5 FULL TEXT : Do you snore loudly (louder than talking or can be heard through closed doors)? 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 confused, unrespo /Reproduction History /Reproductive History - assistant county engineer: /Reproductive Hx- assistant county engineer Hx Now No 08/31/24 15:27 Gestational Age (in weeks): EDC: Hx Hx Para Hx Section SAB No 08/31/24 15:27 Active Medications Active Medications: Current Medications Generic Name Dose Route Start Last Admin Trade Name Freq PRN Reason Stop Dose Admin Acetaminophen 650 mg 08/29/24 13:49 Acetaminophen 325 Mg Tablet PO Q6H PRN PRN Pain 1-10 Or Fever >100.7 Amlodipine Besylate 10 mg 08/31/24 07:25 08/31/24 11:58 Amlodipine 10 Mg Tablet PO Not Given DAILY [facility] Protocol Atorvastatin Calcium 20 mg 08/29/24 22:00 08/30/24 20:32 Atorvastatin Calcium 20 Mg Tablet PO 20 mg QHS [facility] Administration Bismuth Subsalicylate 524 mg 08/29/24 20:10 08/31/24 03:40 Bismuth Subsalicylate 262 Mg Tablet PO 524 mg QHS PRN Administration DIARRHEA/LOOSE STOOLS Enoxaparin Sodium 40 mg 08/30/24 10:00 08/31/24 11:56 Enoxaparin 40 Mg/0.4 Ml Syringe SC Not Given DAILY [facility] Gabapentin 300 mg 08/29/24 22:00 08/31/24 11:57 Gabapentin 300 Mg Capsule PO Not Given BID [facility] Glipizide 5 mg 08/29/24 17:00 08/31/24 17:02 [facility] 5 Mg [facility] 1 mg 08/29/24 13:49 Glucagon 1 Mg/Ml Syringe IM X1 PRN HYPOGLYCEMIA Protocol Sodium Chloride 250 mls @ 15 mls/hr 08/29/24 12:21 IV .[id number] PRN Additional IVPB Infusion Sodium Chloride 250 mls @ 15 mls/hr 08/29/24 12:21 IV .[id number] PRN Saline Flush Dextrose 250 mls @ 0 mls/hr 08/29/24 13:49 Dextrose 10%-Water IV .Q0M PRN HYPOGLYCEMIA Protocol As Directed Piperacillin Sod/Tazobactam 50 mls @ 12.5 mls/hr 08/29/24 22:00 08/31/24 17:02 Sod 3.375 gm/ Sodium Chloride IV Not Given Q8 [facility] Vancomycin IV-PHARMACY TO DOSE 500 mls @ 250 mls/hr 08/29/24 13:55 1 each/ Sodium Chloride IV PRN PRN Rx to Dose Protocol Vancomycin HCl 1,000 mg in 200 mls @ 200 mls/hr 08/31/24 15:00 08/31/24 16:20 Vancomycin IV Infused Q8H [facility] Infusion Insulin Glargine 30 unit 08/30/24 10:00 08/31/24 12:18 Insulin Glargine-Yfgn 100 Unit/Ml Pen SC Not Given DAILY [facility] Insulin Human Lispro 0 unit 08/29/24 16:00 08/31/24 17:02 Insulin Lispro 100 Unit/Ml Insuln.Pen SC Not Given ACHS [facility] Protocol Lisinopril 40 mg 08/30/24 10:00 08/31/24 11:58 Lisinopril 40 Mg Tablet PO Not Given DAILY [facility] Protocol Metoprolol Succinate 50 mg 08/31/24 10:00 08/31/24 12:02 Metoprolol(Xl)Succ 50 Mg Tablet PO 50 mg DAILY [facility] Administration Protocol Morphine Sulfate 2 - 4 mg 08/29/24 13:49 Morphine 2 Mg/Ml Syringe IV Q3H PRN PRN Pain Score 6-10 Morphine Sulfate 2 - 4 mg 08/29/24 14:19 Morphine 4 Mg/Ml Syringe IV Q3H PRN PRN Pain Score 6-10 Nitroglycerin 0.4 mg 08/29/24 13:49 Nitroglycerin (Inpatient Use) 0.4 Mg Tab.Subl SL Q5M PRN CARDIAC/CHEST PAIN Ondansetron HCl 4 mg 08/29/24 13:49 Ondansetron 4 Mg/2 Ml Vial IV Q8H PRN PRN NAUSEA/VOMITING Oxycodone HCl 5 mg 08/29/24 13:49 Oxycodone 5 Mg Tablet PO Q4H PRN PRN Pain Score 4-10 Pantoprazole Sodium 20 mg 08/30/24 07:00 08/31/24 06:43 Pantoprazole Sodium 20 Mg Tablet PO Not Given 0700 [facility] Sertraline HCl 25 mg 08/30/24 10:00 08/31/24 11:58 Sertraline 50 Mg Tablet PO Not Given DAILY [facility] Sodium Chloride 10 - 40 ml 08/29/24 12:21 0.9% Saline Lock 10 Ml Syringe IV UD PRN SALINE FLUSH Vancomycin Protocol 1 lab 09/01/24 12:30 Vancomycin Trough/Random Due MC 09/01/24 16:30 DAILY [facility] PFSH Medical History Anxiety Diabetes Smoker BiPAP (biphasic positive airway pressure) dependence Hypertension DVT (deep venous thrombosis) Myocardial infarct Home Medications ?Medication ?Instructions ?Recorded ?Last Taken ?Type blood-glucose meter,continuous 07/25/24 Unknown History ([email or web address]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 ([employer] G7 07/25/24 Unknown History Sensor device) blood-glucose transmitter ([employer] 07/25/24 Unknown History G6 Transmitter device) gabapentin 300 mg capsule 300 mg PO BID NERVE PAIN 07/25/24 Unknown History glipizide 5 mg tablet 5 mg PO BID 07/25/24 08/28/24 History insulin aspart U-100 100 unit/mL See Protocol subcut TID 07/25/24 08/28/24 History (3 mL) subcutaneous pen (Novolog FlexPen U-100 Insulin aspart) insulin glargine 100 unit/mL (3 30 unit subcut DAILY 07/25/24 08/28/24 History mL) subcutaneous pen (Lantus Solostar U-100 Insulin) metoprolol succinate 50 mg 50 mg PO DAILY BLOOD PRESSURE 07/25/24 Unknown History tablet,extended release 24 hr sertraline 25 mg tablet 25 mg PO DAILY 07/25/24 08/15/24 History linezolid 600 mg tablet 600 mg PO Q12H ANTIBIOTIC 14 days 08/27/24 Unknown Rx #28 tabs atorvastatin 20 mg tablet 20 mg PO QHS 08/29/24 08/28/24 History bismuth subsalicylate 262 mg 524 mg PO Q30M PRN diarrhea 08/29/24 Unknown History tablet ([employer]est[employer]) lisinopril 40 mg tablet 40 mg PO DAILY 08/29/24 08/28/24 History omeprazole 20 mg capsule,delayed 20 mg PO 0700 08/29/24 08/28/24 History release Allergy/AdvReac Type Severity Reaction Status Date / Time No Known Allergies Allergy Verified 08/29/24 10:27 Surgical History History of coronary artery stent placement Social History Smoking Status: Former smoker Review of Systems (Anesthesia) ROS Narrative System reviewed and no additional complaints, except as documented.
--- NOTE | 2024-08-31 19:30 | RAD_ITS ---
HISTORY: IND INCISION BONE CORTEX DEBRIDEMENT DELYAED CLOSURE FOOT. TECHNIQUE: Left toes 4 spot images. COMPARISON: None. FINDINGS: OSSEOUS STRUCTURES: Surgical instrument overlying the first toe. FLUOROSCOPY TIME: 5 seconds. RADIATION DOSE: 0.026 mGy. RAD/Foot 2 Views IMPRESSION: Image guidance for left foot procedure. Electronically Signed: Shira Macedo MD at 9:56 EDT ,
[2024-08-31] MEDS: Bupivacaine 0.5% PF 10 ML VIAL (19:43)
--- NOTE | 2024-08-31 19:55 | PCM.POST.ANE ---
Anesthesia: Postop Eval I Current Vital Signs Temperature: 99.3 F Pulse Rate: 74 Blood Pressure: 114/73 Respiratory Rate: 16 Pulse Ox: 95 Oxygen Delivery Method: Nasal Cannula Oxygen Flow Rate (L/min): 4 Assessment Airway patent: Yes Spontaneous unlabored respirations: Yes Mental status: Asleep nausea: No Vomiting: No Anesthesia Complication: No Fluid Hydration Crystalloid volume administer (ml): 250 Total IV fluid infused: 250 Progress Note Anesthesia document: Postop Eval 1 completed: Yes
[2024-08-31] MEDS: Atorvastatin Calcium 20 MG Tablet PO (21:03)
[2024-08-31] MEDS: Gabapentin 300 MG Capsule PO (21:03)
[2024-08-31 21:58] LABS: Bedside Glucose 235 mg/dL (74-106)
[2024-08-31 21:58] LABS: Bedside Glucose 306 mg/dL (74-106)
--- NOTE | 2024-08-31 23:12 | PCM.POSTANE2 ---
Anesthesia Postop Eval I Sum Postop Eval Completion status Anesthesia document: Postop Eval 1 completed: Yes Anesthesia Postop Eval I Summary Anesthesia Postop Eval I Summary: Anesthesia Postop Eval I: Assessment Summary Airway patent Yes 08/31/24 19:58 Spontaneous unlabored Yes 08/31/24 19:58 respirations Mental status Asleep 08/31/24 19:58 nausea No 08/31/24 19:58 Vomiting No 08/31/24 19:58 Anesthesia Postop Eval I: Fluid Summary Crystalloid volume administer 250 08/31/24 19:58 (ml) Colloids volume administered ( ml) Blood Product volume administered (ml) Total IV fluid infused 250 08/31/24 19:58 Anesthesia Postop Eval I: Summary Notes Anesthesia Complication No 08/31/24 19:58 Anesthesia Complication Comment: Post-operative progress note Anesthesia: Postop Eval II Evaluation Mental status: Awake and Calm Pain Level: 0 nausea: No Vomiting: No Complications Anesthesia Complication: No
[2024-09-01] MEDS: Vancomycin IV 1,000 MG/200 ML BAG 200 MG IV ×3 (00:13→19:42)
[2024-09-01 00:28] VITALS: BP 162/94; PULSE 72; RESP 18; TEMP 36.6; O2SAT 100
[2024-09-01 04:45] VITALS: BP 160/90; PULSE 86; RESP 16; TEMP 36.6; O2SAT 99
[2024-09-01] MEDS: Piperacil/Tazobactam 3.375 GM in 0.9% Normal Saline (50mL MB+) 50 ML IV ×3 (05:50→21:10)
[2024-09-01] MEDS: Pantoprazole Sodium 20 MG Tablet PO (06:00)
[2024-09-01] MEDS: Insulin Lispro 100 UNIT/ML INSULN.PEN SC ×4 (06:00→21:10)
[2024-09-01 06:20] LABS: Absolute Lymphocyte Count 1.62 X10^3/uL (0.83-4.51); Absolute Neutrophil Count 5.3 X10^3/uL (2.0-7.7); Basophil# 0.03 X10^3/uL; Basophil% 0.4 % (0-1); Eosinophil# 0.12 X10^3/uL; Eosinophils% 1.5 % (0-5); Hematocrit 39.4 % (40-54); Hemoglobin 13.1 g/dL (13.0-16.5); Lymphocyte # 1.62 X10^3/ul (0.83-4.51); Lymphocyte % 20.4 % (19-41); Mean Corp Hgb Conc 33.2 g/dL (32-36); Mean Corpuscular Hgb 26.6 pg (27.0-32.0); Mean Corpuscular Volume 80.1 fL (80-94); Mean Platelet Vol. 9.9 fl (6.2-12.0); Monocyte# 0.89 X10^3/uL; Monocyte% 11.2 % (0-10); NRBC Flagged by Analyzer 0 % (0-5); Neutrophil # 5.26 X10^3/uL (2.7-7.7); Neutrophil % 66.1 % (47-70); Platelet Count 228 K/mm3 (150-450); RBC Distribution Width CV 12.1 % (11.6-14.6); RBC Distribution Width SD 34.9 fl (35.1-43.9); Red Blood Count 4.92 M/mm3 (4.6-6.2)
[2024-09-01 06:30] LABS: Bedside Glucose 403 mg/dL (74-106)
[2024-09-01 06:53] LABS: Anion Gap 6 (5-15); BUN 13 mg/dL (7-18); BUN/Creat Ratio 12.7 RATIO (10-20); Calcium,Total 8.9 mg/dL (8.5-10.1); Chloride 102 mmol/L (98-107); Creatinine, Serum 1.02 mg/dL (0.70-1.30); EST Glomerular Filtration Rate 82 mL/min (>60); Est Glom Filt Rate - Afr Amer 100 mL/min (>60); Estimated Creatinine Clearance 111.12 ml/min; Glucose 435 mg/dL (74-106); Potassium 3.8 mmol/L (3.5-5.1); Sodium Level 134 mmol/L (136-145)
[2024-09-01 08:00] VITALS: BP 140/94; PULSE 78; RESP 16; TEMP 37.1; O2SAT 98
[2024-09-01] MEDS: Insulin Glargine-YFGN 100 UNIT/ML Pen 30 UNIT SC (09:51)
[2024-09-01] MEDS: Enoxaparin 40 MG/0.4 ML Syringe SC (09:51)
[2024-09-01] MEDS: Gabapentin 300 MG Capsule PO ×2 (09:51→21:10)
[2024-09-01] MEDS: Sertraline 50 MG Tablet 25 MG PO (09:52)
[2024-09-01] MEDS: Lisinopril 40 MG Tablet PO (09:52)
[2024-09-01] MEDS: glipiZIDE 5 MG Tablet PO ×2 (09:53→17:11)
[2024-09-01 09:54] VITALS: PULSE 80
[2024-09-01] MEDS: Metoprolol(XL)Succ 50 MG Tablet PO (09:54)
[2024-09-01] MEDS: amLODIPine 10 MG Tablet PO (09:56)
[2024-09-01] MEDS: oxyCODONE 5 MG Tablet PO ×2 (11:37→21:16)
[2024-09-01 11:45] LABS: Bedside Glucose 321 mg/dL (74-106)
--- NOTE | 2024-09-01 12:24 | NS ---
Pt upset with not getting chocolate milk with meals - changed diet to allow for chocolate milk w/ breakfast and dinner.
--- NOTE | 2024-09-01 12:34 | PN_ITS ---
Subjective Subjective Patient seen and examined. He had no active complaints. He was upset about his breakfast. Review of systems is otherwise negative. He had incision and drainage and bone biopsy yesterday. Today is POD 1. Objective Data Objective Data Vital Signs: Vital Signs Temp Pulse Resp BP Pulse Ox O2 Del Method O2 Flow Rate 98.8 F 80 16 140/94 H 98 Room Air 2 09/01/24 08:00 09/01/24 09:54 09/01/24 08:00 09/01/24 08:00 09/01/24 08:00 09/01/24 09:00 08/31/24 20:00 Oxygen Flow Rate (L/min) 2 Oxygen Delivery Method Room Air Weight: 222 lb 7.143 oz Body Mass Index (BMI) 28.5 Intake & Output: Intake and Output for Last 24 Hours 08/30/24 08/31/24 09/01/24 23:59 23:59 23:59 Intake Total 1725 / 1725 575 / 1455 1820 / 1820 Balance 1725 / 1725 575 / 1455 1820 / 1820 Lab / Micro Data 09/01/24 05:50 09/01/24 05:50 Labs: Laboratory Results - last 24 hr 08/31/24 11:55: POC Glucose 306 H 08/31/24 12:23: Vancomycin Trough 21.0 H 08/31/24 15:25: POC Glucose 244 H 08/31/24 20:51: POC Glucose 235 H 09/01/24 05:50: WBC 8.0, RBC 4.92, Hgb 13.1, Hct 39.4 L, MCV 80.1, MCH 26.6 L, MCHC 33.2, RDW Std Deviation 34.9 L, RDW Coeff of Jen 12.1, Plt Count 228, MPV 9.9, Immature Gran % (Auto) 0.400, Neut % (Auto) 66.1, Lymph % (Auto) 20.4, [place] % (Auto) 11.2 H, Eos % (Auto) 1.5, Baso % (Auto) 0.4, Absolute Neuts (auto) 5.3, Absolute Lymphs (auto) 1.62, Nucleated RBC % 0, Sodium 134 L, Potassium 3.8, Chloride 102, Carbon Dioxide 27.0, Anion Gap 6, BUN 13, Creatinine 1.02, Estim Creat Clear Calc 111.12, Est GFR (MDRD) Af Amer 100, Est GFR (MDRD) Non-Af 82, BUN/Creatinine Ratio 12.7, Glucose 435 H, Calcium 8.9 09/01/24 05:58: POC Glucose 403 H 09/01/24 11:22: POC Glucose 321 H Micro: Microbiology 08/31/24 Unknown Bone - Toe Gram Stain - Final 08/31/24 Unknown Bone - Toe Wound Culture - Preliminary No growth-Final to follow 08/31/24 Unknown Wound Drainage - Aerobic & Anaerobic Swabs Gram Stain - Final 08/31/24 Unknown Wound Drainage - Aerobic & Anaerobic Swabs Wound Culture - Preliminary Gram Positive Cocci 08/31/24 Unknown Wound Drainage - Aerobic & Anaerobic Swabs Gram Stain - Final 08/31/24 Unknown Wound Drainage - Aerobic & Anaerobic Swabs Wound Culture - Preliminary Gram Positive Cocci 08/29/24 14:15 Wound - Left Foot Gram Stain - Final 08/29/24 14:15 Wound - Left Foot Wound Culture - Final Coag Negative Staph 08/29/24 10:45 Blood Culture (Wb) - Left Forearm Blood Culture - Preliminary No growth in 48 hours. Radiography Diagnostic Testing: Radiology Impression Foot X-Ray 08/31/24 19:30 IMPRESSION: Image guidance for left foot procedure. Electronically Signed: Shira Macedo MD at 9:56 EDT Reading Location ID and State: [facility] / [place] Tel , Service support , Physical Exam Const alert, oriented x3 and no apparent distress General Appearance: cooperative and well developed HEENT normocephalic, head/scalp atraumatic, hearing grossly normal bilaterally, moist oral mucous membranes and oropharynx normal Eyes PERRL, EOMs intact bilaterally and conjunctivae normal Neck no lymphadenopathy, supple and no JVD Lymph Lymphatic: no lymphadenopathy noted Resp normal respiratory effort, normal air movement, no retractions, no use of accessory muscles and clear to auscultation bilaterally Cardio regular rate, regular rhythm, S1 normal heart sound, S2 normal heart sound and no murmurs GI normal to inspection, nondistended, normoactive bowel sounds and soft to palpation Extremity Extremity Narrative: left foot in CHRISTIE wraps. Skin Skin Narrative: as under extremity Neuro oriented x3, CN's II-XII intact bilaterally, moves all extremities and no focal motor deficits Sensorium / Orientation: awake and alert Motor Exam: strength 5/5 throughout Psych thought process normal, cooperative and affect normal Appearance: appropriate Assessment & Plan Assessment/Plan (1) Cellulitis of left foot: (2) Diabetic ulcer of left foot: (3) Osteomyelitis of toe of left foot: (4) Failure of outpatient treatment: PLAN: Plan #Diabetic foot ulcer and cellulitis with osteomyelitis * s/p incision and drainage of left hallux as well as bone biopsy and delayed primary closure of left hallux. * failed outpatient treatment * He had MRI of the left foot on 08/20/2024 which showed focal skin ulceration and no evidence of osteomyelitis and and mild subcutaneous soft tissue edema along the dorsum of the foot. There was no evidence of osteomyelitis. * podiatry and ID on board * on IV vancomycin and zosyn * wound cultures growing coagulase negative Staph. Blood cultures are negative after 48 hours. * arterial Duplex was normal in both right and left lower extremities. 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 Will defer to ID about antibiotics. * #TYpe 2 diabetes mellitus * on glipizide 5mg daily * on lantus 30 units daily. ISS. Accuchecks ACHS * A1C is 11.1. This indicates his diabetes is very poorly controlled. * counseled to comply with lantus. * blood sugars have been poorly controlled and blood sugar this morning was 435. * will increase lantus to 35 units qam. high dose ISS. * #Hyperlipidemia: on statin #Hypertension: * on lisinopril and metoprolol. Amlodipine 10mg daily. * On metoprolol 50mg daily and lisinopril 40mg daily. * IV hydralazine prn DVT prophylaxis: lovenox Code status: full code * Charges/Coding Visit Charges Inpatient E&M: 62771 Subs Hosp L2
[2024-09-01 15:19] VITALS: BP 122/76; PULSE 82; RESP 18; TEMP 37.2; O2SAT 98
[2024-09-01] MEDS: Vancomycin Trough/Random Due 1 LAB MC (17:11)
[2024-09-01 17:22] LABS: Bedside Glucose 272 mg/dL (74-106)
[2024-09-01 19:12] LABS: Vancomycin, Trough Level 19.1 ug/mL (5.0-15.0)
--- NOTE | 2024-09-01 20:44 | PCM.RX.CS ---
Consult Antibiotic Management Pharmacy has been consulted to manage selected antibiotic: Vancomycin Type of Intervention Type of Consult: Follow-up Labs Labs: Sodium 134 mmol/L (136-145) L 09/01/24 05:50 Potassium 3.8 mmol/L (3.5-5.1) 09/01/24 05:50 Chloride 102 mmol/L (98-107) 09/01/24 05:50 Carbon Dioxide 27.0 mmol/L (21.0-32.0) 09/01/24 05:50 Anion Gap 6 (5-15) 09/01/24 05:50 BUN 13 mg/dL (7-18) 09/01/24 05:50 Creatinine 1.02 mg/dL (0.70-1.30) 09/01/24 05:50 Est GFR (MDRD) Af Amer 100 mL/min (>60) 09/01/24 05:50 Est GFR (MDRD) Non-Af 82 mL/min (>60) 09/01/24 05:50 BUN/Creatinine Ratio 12.7 RATIO (10-20) 09/01/24 05:50 Glucose 435 mg/dL (74-106) H 09/01/24 05:50 Vancomycin Trough 19.1 ug/mL (5.0-15.0) H 09/01/24 17:45 Microbiology Microbiology: Microbiology 08/31/24 Unknown Bone - Toe Gram Stain - Final 08/31/24 Unknown Bone - Toe Wound Culture - Preliminary No growth-Final to follow 08/31/24 Unknown Wound Drainage - Aerobic & Anaerobic Swabs Gram Stain - Final 08/31/24 Unknown Wound Drainage - Aerobic & Anaerobic Swabs Wound Culture - Preliminary Gram Positive Cocci 08/31/24 Unknown Wound Drainage - Aerobic & Anaerobic Swabs Gram Stain - Final 08/31/24 Unknown Wound Drainage - Aerobic & Anaerobic Swabs Wound Culture - Preliminary Gram Positive Cocci 08/29/24 14:15 Wound - Left Foot Gram Stain - Final 08/29/24 14:15 Wound - Left Foot Wound Culture - Final Coag Negative Staph 08/29/24 10:45 Blood Culture (Wb) - Left Forearm Blood Culture - Preliminary No growth in 48 hours. Pharmacy Plan for Drug Dosing Pharmacy Plan for Drug Dosing: Pharmacy Service will continue to monitor and adjust dosing as required. TROUGH 19.1 @ 7 HOURS. NO CHANGES, FOLLOW UP TROUGH TOMORROW Follow-Up Labs Follow-Up Labs: Trough: Vancomycin Date/Time Labs Ordered Labs to be done on [date and time ordered]: 09/02 @ 1909
[2024-09-01 21:04] VITALS: BP 163/93; PULSE 81; RESP 16; TEMP 36.8; O2SAT 100
[2024-09-01] MEDS: Atorvastatin Calcium 20 MG Tablet PO (21:11)
[2024-09-02 00:54] LABS: Bedside Glucose 292 mg/dL (74-106)
[2024-09-02] MEDS: Vancomycin IV 1,000 MG/200 ML BAG 200 MG IV ×3 (03:49→20:05)
[2024-09-02 03:53] VITALS: BP 124/82; PULSE 68; RESP 16; TEMP 36.4; O2SAT 96
[2024-09-02] MEDS: oxyCODONE 5 MG Tablet PO ×2 (03:57→21:43)
[2024-09-02 06:09] LABS: Absolute Lymphocyte Count 2.57 X10^3/uL (0.83-4.51); Basophil# 0.04 X10^3/uL; Basophil% 0.5 % (0-1); Eosinophil# 0.17 X10^3/uL; Eosinophils% 1.9 % (0-5); Hematocrit 38.5 % (40-54); Hemoglobin 12.8 g/dL (13.0-16.5); Lymphocyte # 2.57 X10^3/ul (0.83-4.51); Lymphocyte % 29.3 % (19-41); Mean Corp Hgb Conc 33.2 g/dL (32-36); Mean Corpuscular Hgb 26.9 pg (27.0-32.0); Mean Corpuscular Volume 81.1 fL (80-94); Mean Platelet Vol. 9.7 fl (6.2-12.0); Monocyte% 11.4 % (0-10); NRBC Flagged by Analyzer 0 % (0-5); Neutrophil # 4.96 X10^3/uL (2.7-7.7); Neutrophil % 56.4 % (47-70); Platelet Count 217 K/mm3 (150-450); RBC Distribution Width SD 35.4 fl (35.1-43.9); Red Blood Count 4.75 M/mm3 (4.6-6.2); White Blood Count 8.8 K/mm3 (4.4-11.0)
[2024-09-02] MEDS: Piperacil/Tazobactam 3.375 GM in 0.9% Normal Saline (50mL MB+) 50 ML IV ×3 (06:21→21:51)
[2024-09-02] MEDS: Insulin Lispro 100 UNIT/ML INSULN.PEN SC ×4 (06:21→21:44)
[2024-09-02] MEDS: Pantoprazole Sodium 20 MG Tablet PO (06:22)
[2024-09-02 06:29] LABS: Anion Gap 6 (5-15); BUN 18 mg/dL (7-18); BUN/Creat Ratio 21.5 RATIO (10-20); Chloride 101 mmol/L (98-107); Creatinine, Serum 0.84 mg/dL (0.70-1.30); EST Glomerular Filtration Rate 103 mL/min (>60); Est Glom Filt Rate - Afr Amer 125 mL/min (>60); Estimated Creatinine Clearance 134.94 ml/min; Glucose 257 mg/dL (74-106); Potassium 3.7 mmol/L (3.5-5.1); Sodium Level 134 mmol/L (136-145)
[2024-09-02 07:10] LABS: Bedside Glucose 259 mg/dL (74-106)
[2024-09-02 08:06] VITALS: BP 143/93; PULSE 78; RESP 18; TEMP 36.8; O2SAT 98
[2024-09-02 08:14] VITALS: PULSE 78
[2024-09-02] MEDS: Lisinopril 40 MG Tablet PO (08:14)
[2024-09-02] MEDS: Metoprolol(XL)Succ 50 MG Tablet PO (08:14)
[2024-09-02] MEDS: glipiZIDE 5 MG Tablet PO ×2 (08:14→17:15)
[2024-09-02] MEDS: Sertraline 50 MG Tablet 25 MG PO (08:14)
[2024-09-02] MEDS: amLODIPine 10 MG Tablet PO (08:14)
[2024-09-02] MEDS: Enoxaparin 40 MG/0.4 ML Syringe SC (08:15)
[2024-09-02] MEDS: Gabapentin 300 MG Capsule PO ×2 (10:43→21:55)
[2024-09-02] MEDS: Insulin Glargine-YFGN 100 UNIT/ML Pen 35 UNIT SC (10:43)
--- NOTE | 2024-09-02 10:56 | PN_ITS ---
Subjective Subjective Patient seen and examined. SHE had no active complaints. Review of systems is otherwise negative. Wound cultures are growing Staph species, speciation is pending. Objective Data Objective Data Vital Signs: Vital Signs Temp Pulse Resp BP Pulse Ox O2 Del Method O2 Flow Rate 98.2 F 78 18 143/93 H 98 Room Air 2 09/02/24 08:06 09/02/24 08:14 09/02/24 08:06 09/02/24 08:06 09/02/24 08:06 09/02/24 08:08 08/31/24 20:00 Oxygen Flow Rate (L/min) 2 Oxygen Delivery Method Room Air Weight: 222 lb 7.143 oz Body Mass Index (BMI) 28.5 Intake & Output: Intake and Output for Last 24 Hours 08/31/24 09/01/24 09/02/24 23:59 23:59 23:59 Intake Total 575 / 1455 3670 / 3670 1180 / 1180 Balance 575 / 1455 3670 / 3670 1180 / 1180 Lab / Micro Data 09/02/24 05:45 09/02/24 05:45 Labs: Laboratory Results - last 24 hr 09/01/24 11:22: POC Glucose 321 H 09/01/24 17:04: POC Glucose 272 H 09/01/24 17:45: Vancomycin Trough 19.1 H 09/01/24 21:09: POC Glucose 292 H 09/02/24 05:45: WBC 8.8, RBC 4.75, Hgb 12.8 L, Hct 38.5 L, MCV 81.1, MCH 26.9 L, MCHC 33.2, RDW Std Deviation 35.4, RDW Coeff of Jen 12.0, Plt Count 217, MPV 9.7, Immature Gran % (Auto) 0.500, Neut % (Auto) 56.4, Lymph % (Auto) 29.3, [place] % (Auto) 11.4 H, Eos % (Auto) 1.9, Baso % (Auto) 0.5, Absolute Neuts (auto) 5.0, Absolute Lymphs (auto) 2.57, Nucleated RBC % 0, Sodium 134 L, Potassium 3.7, Chloride 101, Carbon Dioxide 27.0, Anion Gap 6, BUN 18, Creatinine 0.84, Estim Creat Clear Calc 134.94, Est GFR (MDRD) Af Amer 125, Est GFR (MDRD) Non-Af 103, BUN/Creatinine Ratio 21.5 H, Glucose 257 H, Calcium 9.0 09/02/24 06:20: POC Glucose 259 H Micro: Microbiology 08/31/24 Unknown Wound Drainage - Aerobic & Anaerobic Swabs Gram Stain - Final 08/31/24 Unknown Wound Drainage - Aerobic & Anaerobic Swabs Wound Culture - Preliminary Staphylococcus species 08/31/24 Unknown Wound Drainage - Aerobic & Anaerobic Swabs Gram Stain - Final 08/31/24 Unknown Wound Drainage - Aerobic & Anaerobic Swabs Wound Culture - Preliminary Staphylococcus species 08/31/24 Unknown Bone - Toe Gram Stain - Final 08/31/24 Unknown Bone - Toe Wound Culture - Preliminary No growth-Final to follow 08/29/24 14:15 Wound - Left Foot Gram Stain - Final 08/29/24 14:15 Wound - Left Foot Wound Culture - Final Coag Negative Staph 08/29/24 10:45 Blood Culture (Wb) - Left Forearm Blood Culture - Preliminary No growth in 48 hours. Physical Exam Const alert, oriented x3 and no apparent distress General Appearance: cooperative and well developed HEENT normocephalic, head/scalp atraumatic, hearing grossly normal bilaterally, moist oral mucous membranes and oropharynx normal Eyes PERRL, EOMs intact bilaterally and conjunctivae normal Neck no lymphadenopathy, supple and no JVD Lymph Lymphatic: no lymphadenopathy noted Resp normal respiratory effort, normal air movement, no retractions, no use of accessory muscles and clear to auscultation bilaterally Cardio regular rate, regular rhythm, S1 normal heart sound, S2 normal heart sound and no murmurs GI normal to inspection, nondistended, normoactive bowel sounds and soft to palpation Extremity Extremity Narrative: left foot in CHRISTIE wraps. Skin Skin Narrative: as under extremity Neuro oriented x3, CN's II-XII intact bilaterally, moves all extremities and no focal motor deficits Sensorium / Orientation: awake and alert Motor Exam: strength 5/5 throughout Psych thought process normal, cooperative and affect normal Appearance: appropriate Assessment & Plan Assessment/Plan (1) Cellulitis of left foot: (2) Diabetic ulcer of left foot: (3) Osteomyelitis of toe of left foot: (4) Failure of outpatient treatment: PLAN: Plan #Diabetic foot ulcer and cellulitis with osteomyelitis * s/p incision and drainage of left hallux as well as bone biopsy and delayed primary closure of left hallux. * failed outpatient treatment * He had MRI of the left foot on 08/20/2024 which showed focal skin ulceration and no evidence of osteomyelitis and and mild subcutaneous soft tissue edema along the dorsum of the foot. There was no evidence of osteomyelitis. * podiatry and ID on board * on IV vancomycin and zosyn * wound cultures growing coagulase negative Staph. Blood cultures are negative after 48 hours. * arterial Duplex was normal in both right and left lower extremities. * depending on biopsy results, may need PICC line for terminal make up operator antibiotics. Will defer to ID about antibiotics. * #TYpe 2 diabetes mellitus * on glipizide 5mg daily * A1C is 11.1. This indicates his diabetes is very poorly controlled. * counseled to comply with lantus. * on lantus 35 units qhs. ISS. Accuchecks ACHS. * lantus increased to 35 units qhs yesterday. Depending on blood sugars, he may need to have his dose adjusted further upwards. * #Hyperlipidemia: on statin #Hypertension: * on lisinopril and metoprolol. Amlodipine 10mg daily. * IV hydralazine prn DVT prophylaxis: lovenox Code status: full code * Charges/Coding Visit Charges Inpatient E&M: 44733 Subs Hosp L2
--- NOTE | 2024-09-02 11:19 | PCM.PN.SRG ---
Subjective Subjective Mr. Haley is a 49-year-old diabetic male seen at bedside today for dressing change status post incision and drainage, incision bone cortex with delayed primary closure to the left hallux. DOS: 09/20. Patient is recovering well. He admits to some discomfort especially with weightbearing. Blood sugar has been greater than 200 mg/dL and is currently on sliding scale. No acute events overnight. Dressing change was performed by nursing staff secondary to drainage because of weightbearing on left foot. No acute events overnight. Denies trauma. Denies constitutional symptoms. No pain complaints at this time. Objective Data Objective Data Vital Signs: Vital Signs Temp Pulse Resp BP Pulse Ox O2 Del Method O2 Flow Rate 98.2 F 78 18 143/93 H 98 Room Air 2 09/02/24 08:06 09/02/24 08:14 09/02/24 08:06 09/02/24 08:06 09/02/24 08:06 09/02/24 08:08 08/31/24 20:00 Oxygen Flow Rate (L/min) 2 Oxygen Delivery Method Room Air Weight: 100.9 kg Body Mass Index (BMI) 28.5 Intake & Output: Intake and Output for Last 24 Hours 08/31/24 09/01/24 09/02/24 23:59 23:59 23:59 Intake Total 575 / 1455 3670 / 3670 1180 / 1180 Balance 575 / 1455 3670 / 3670 1180 / 1180 Lab / Micro Data 09/02/24 05:45 09/02/24 05:45 Labs: Laboratory Results - last 24 hr 09/01/24 11:22: POC Glucose 321 H 09/01/24 17:04: POC Glucose 272 H 09/01/24 17:45: Vancomycin Trough 19.1 H 09/01/24 21:09: POC Glucose 292 H 09/02/24 05:45: WBC 8.8, RBC 4.75, Hgb 12.8 L, Hct 38.5 L, MCV 81.1, MCH 26.9 L, MCHC 33.2, RDW Std Deviation 35.4, RDW Coeff of Jen 12.0, Plt Count 217, MPV 9.7, Immature Gran % (Auto) 0.500, Neut % (Auto) 56.4, Lymph % (Auto) 29.3, [place] % (Auto) 11.4 H, Eos % (Auto) 1.9, Baso % (Auto) 0.5, Absolute Neuts (auto) 5.0, Absolute Lymphs (auto) 2.57, Nucleated RBC % 0, Sodium 134 L, Potassium 3.7, Chloride 101, Carbon Dioxide 27.0, Anion Gap 6, BUN 18, Creatinine 0.84, Estim Creat Clear Calc 134.94, Est GFR (MDRD) Af Amer 125, Est GFR (MDRD) Non-Af 103, BUN/Creatinine Ratio 21.5 H, Glucose 257 H, Calcium 9.0 09/02/24 06:20: POC Glucose 259 H Micro: Microbiology 08/31/24 Unknown Wound Drainage - Aerobic & Anaerobic Swabs Gram Stain - Final 08/31/24 Unknown Wound Drainage - Aerobic & Anaerobic Swabs Wound Culture - Preliminary Staphylococcus species 08/31/24 Unknown Wound Drainage - Aerobic & Anaerobic Swabs Gram Stain - Final 08/31/24 Unknown Wound Drainage - Aerobic & Anaerobic Swabs Wound Culture - Preliminary Staphylococcus species 08/31/24 Unknown Bone - Toe Gram Stain - Final 08/31/24 Unknown Bone - Toe Wound Culture - Preliminary No growth-Final to follow 08/29/24 14:15 Wound - Left Foot Gram Stain - Final 08/29/24 14:15 Wound - Left Foot Wound Culture - Final Coag Negative Staph 08/29/24 10:45 Blood Culture (Wb) - Left Forearm Blood Culture - Preliminary No growth in 48 hours. Physical Exam Narrative Neurovascular status is unchanged. Improved blanchable erythema to the left first metatarsophalangeal joint. The incision is well coapted with suture. Mild serous drainage is appreciated. No malodor. No probe to bone. No pain on palpation to the incision to the plantar aspect of the left great toe. No pain with calf pressure. Const oriented x3 and no apparent distress Assessment & Plan Assessment/Plan (1) Cellulitis of left foot: PLAN: Patient was examined and evaluated. All findings were discussed with the patient. All questions were answered to the patient satisfaction. Patient is status post incision and drainage, incision of bone cortex with delayed primary closure to the left hallux plantar ulceration. The incision was dressed with Betadine soaked Adaptic, dry sterile dressing and a single layer Cabezas compression bandage was donned to left lower extremity. Please leave dressing clean dry and intact. Dressing change may be performed prior to patient discharge. Continue strict blood sugar control. Recommend PICC line antibiotics per infectious disease recommendations. Surgery cultures -Pre Lavage: Staph species -Post Lavage: Staph species -Bone (Micro): Pending -Bone (Path): Pending WBC: 8.0 -> 8.8 Glu: 314 -> 435 -> 257 HbA1c: 11.1 Medicine: On board, medical management Infectious disease: On board, IV antibiotics: Vancomycin and Zosyn PT/OT: On board Podiatry will continue to follow patient but from a distance while in house. Please leave dressing clean dry and intact unless evidence of strikethrough and please reinforce as above. Patient can have dressing change prior to discharge. Patient is cleared to discharge from a podiatry perspective once cleared by medicine and infectious disease team. Please reach out to Dr. Archibald with any questions or concerns. Thank you for letting me be involved in patient care. (2) Osteomyelitis of toe of left foot: (3) Non-pressure chronic ulcer of other part of left foot with necrosis of muscle: (4) Chronic painful diabetic polyneuropathy:
[2024-09-02 12:50] LABS: Bedside Glucose 311 mg/dL (74-106)
[2024-09-02 14:00] VITALS: BP 144/89; PULSE 74; RESP 18; TEMP 36.6; O2SAT 98
[2024-09-02 18:00] LABS: Bedside Glucose 377 mg/dL (74-106)
[2024-09-02 19:32] LABS: Vancomycin, Trough Level 20.4 ug/mL (5.0-15.0)
--- NOTE | 2024-09-02 20:40 | PHA.PHARE_ITS ---
Consult Antibiotic Management Pharmacy has been consulted to manage selected antibiotic: Vancomycin Type of Intervention Type of Consult: Follow-up Labs Labs: Sodium 134 mmol/L (136-145) L 09/02/24 05:45 Potassium 3.7 mmol/L (3.5-5.1) 09/02/24 05:45 Chloride 101 mmol/L (98-107) 09/02/24 05:45 Carbon Dioxide 27.0 mmol/L (21.0-32.0) 09/02/24 05:45 Anion Gap 6 (5-15) 09/02/24 05:45 BUN 18 mg/dL (7-18) 09/02/24 05:45 Creatinine 0.84 mg/dL (0.70-1.30) 09/02/24 05:45 Est GFR (MDRD) Af Amer 125 mL/min (>60) 09/02/24 05:45 Est GFR (MDRD) Non-Af 103 mL/min (>60) 09/02/24 05:45 BUN/Creatinine Ratio 21.5 RATIO (10-20) H 09/02/24 05:45 Glucose 257 mg/dL (74-106) H 09/02/24 05:45 Vancomycin Trough 20.4 ug/mL (5.0-15.0) H 09/02/24 18:50 Microbiology Microbiology: Microbiology 08/31/24 Unknown Wound Drainage - Aerobic & Anaerobic Swabs Gram Stain - Final 08/31/24 Unknown Wound Drainage - Aerobic & Anaerobic Swabs Wound Culture - Preliminary Staphylococcus species 08/31/24 Unknown Wound Drainage - Aerobic & Anaerobic Swabs Gram Stain - Final 08/31/24 Unknown Wound Drainage - Aerobic & Anaerobic Swabs Wound Culture - Preliminary Staphylococcus species 08/31/24 Unknown Bone - Toe Gram Stain - Final 08/31/24 Unknown Bone - Toe Wound Culture - Preliminary No growth-Final to follow 08/29/24 14:15 Wound - Left Foot Gram Stain - Final 08/29/24 14:15 Wound - Left Foot Wound Culture - Final Coag Negative Staph 08/29/24 10:45 Blood Culture (Wb) - Left Forearm Blood Culture - Preliminary No growth in 48 hours. Pharmacy Plan for Drug Dosing Pharmacy Plan for Drug Dosing: Pharmacy Service will continue to monitor and adjust dosing as required. TROUGH 20.4 @ 7 HOURS. SCr DECREASED FROM 1.02 TO 0.84. KEEP SAME DOSE AND FOL LOW UP TROUGH IN 3 DOSES Follow-Up Labs Follow-Up Labs: Trough: Vancomycin Date/Time Labs Ordered Labs to be done on [date and time ordered]: 09/03 @ 1900
[2024-09-02 21:27] VITALS: BP 144/90; PULSE 68; RESP 18; TEMP 36.8; O2SAT 98
[2024-09-02] MEDS: Atorvastatin Calcium 20 MG Tablet PO (21:51)
[2024-09-03 03:36] VITALS: BP 126/86; PULSE 67; RESP 16; TEMP 36.5; O2SAT 100
[2024-09-03] MEDS: Vancomycin IV 1,000 MG/200 ML BAG 200 MG IV ×2 (03:41→11:13)
[2024-09-03] MEDS: Piperacil/Tazobactam 3.375 GM in 0.9% Normal Saline (50mL MB+) 50 ML IV ×2 (05:19→13:23)
[2024-09-03 05:28] LABS: Bedside Glucose 331 mg/dL (74-106)
[2024-09-03] MEDS: Insulin Lispro 100 UNIT/ML INSULN.PEN SC ×2 (06:42→11:48)
[2024-09-03] MEDS: Pantoprazole Sodium 20 MG Tablet PO (06:45)
[2024-09-03] MEDS: oxyCODONE 5 MG Tablet PO (06:48)
[2024-09-03 07:08] LABS: Bedside Glucose 279 mg/dL (74-106)
[2024-09-03 07:14] LABS: Absolute Lymphocyte Count 2.41 X10^3/uL (0.83-4.51); Absolute Neutrophil Count 3.7 X10^3/uL (2.0-7.7); Basophil# 0.05 X10^3/uL; Basophil% 0.7 % (0-1); Eosinophil# 0.12 X10^3/uL; Eosinophils% 1.7 % (0-5); Hematocrit 39.5 % (40-54); Hemoglobin 12.9 g/dL (13.0-16.5); Lymphocyte # 2.41 X10^3/ul (0.83-4.51); Mean Corp Hgb Conc 32.7 g/dL (32-36); Mean Corpuscular Hgb 26.8 pg (27.0-32.0); Mean Platelet Vol. 9.7 fl (6.2-12.0); Monocyte# 0.74 X10^3/uL; Monocyte% 10.5 % (0-10); NRBC Flagged by Analyzer 0 % (0-5); Neutrophil # 3.74 X10^3/uL (2.7-7.7); Neutrophil % 52.8 % (47-70); Platelet Count 211 K/mm3 (150-450); RBC Distribution Width SD 35.9 fl (35.1-43.9); Red Blood Count 4.82 M/mm3 (4.6-6.2); White Blood Count 7.1 K/mm3 (4.4-11.0)
[2024-09-03 08:00] VITALS: BP 132/86; PULSE 64; RESP 18; TEMP 36.6; O2SAT 96
[2024-09-03] MEDS: Enoxaparin 40 MG/0.4 ML Syringe SC (08:08)
[2024-09-03 08:09] VITALS: PULSE 64
[2024-09-03] MEDS: Sertraline 50 MG Tablet 25 MG PO (08:09)
[2024-09-03] MEDS: Metoprolol(XL)Succ 50 MG Tablet PO (08:09)
[2024-09-03] MEDS: Lisinopril 40 MG Tablet PO (08:09)
[2024-09-03] MEDS: glipiZIDE 5 MG Tablet PO (08:09)
[2024-09-03] MEDS: amLODIPine 10 MG Tablet PO (08:10)
--- NOTE | 2024-09-03 08:35 | WOUNDNOTE ---
wound photo: left foot
--- NOTE | 2024-09-03 08:35 | WOUNDNOTE ---
wound photo: left foot
--- NOTE | 2024-09-03 09:24 | CASEMGMT ---
Addendum entered by Jennifer Renee 09/03/24 14:24: MIGUE BUCIO notified by pt nurse that pt will dc on bactrim and augmentin. MIGUE BUCIO into pt room, pt is aware of this. Pt denies need for HH in this case then. Pt states he called [employer] and they did not have canes but they referred him to [employer] and they are letting him borrow one. He will bring back when he is finished with it for someone else to use. Pt denies any further needs and is ready for dc. Addendum entered by Jennifer Renee 09/03/24 10:39: Provided pt a handout from on [employer] as well as information for [employer] for pt cane. Pt states he is aware of [facility] as he uses the food pantry there. Pt states he will call and see about assistance with the cane. Pt denies further needs currently. Original Note: MIGUE BUCIO into pt room, discussed dc planning. Pt states if he needs IV atb he is willing to learn them or he has his ex girlfriend's mother who was a nurse who could assist or his neighbor. Pt states he would be open to HH if he needs the IV atb but if he does not, he doesn't want HHC. Pt states he does not need diabetic teaching. He states he doesn't eat vegetables, he is a meat and potatoes lele shannan. Provided pt with a HHC list created by dc financial planning assistant should he need IV atb. Pt states he needs a cane. He states he has spoke with his insurance and it is not covered. He states he was told he has to pay out of pocket. Pt states he has 88 cents in his bank account and cannot afford it. Made aware that this MIGUE BUCIO will speak with SW to see of any available resources for this. MIGUE BUCIO to follow.
[2024-09-03] MEDS: Insulin Glargine-YFGN 100 UNIT/ML Pen 45 UNIT SC (10:17)
[2024-09-03] MEDS: Gabapentin 300 MG Capsule PO (10:17)
[2024-09-03 10:48] LABS: Anion Gap 10 (5-15); BUN 19 mg/dL (7-18); BUN/Creat Ratio 22.2 RATIO (10-20); Calcium,Total 8.8 mg/dL (8.5-10.1); Chloride 102 mmol/L (98-107); Creatinine, Serum 0.86 mg/dL (0.70-1.30); EST Glomerular Filtration Rate 101 mL/min (>60); Est Glom Filt Rate - Afr Amer 122 mL/min (>60); Glucose 284 mg/dL (74-106); Potassium 4.3 mmol/L (3.5-5.1); Sodium Level 135 mmol/L (136-145)
[2024-09-03 12:17] LABS: Bedside Glucose 378 mg/dL (74-106)
--- NOTE | 2024-09-03 13:46 | DCINST_ITS ---
Discharge Instructions Diet Discharge Diet: Low fat / Low cholesterol and Carb Control Diet Activity Discharge Activity: Return to Normal Activity Weight Bearing Status: Partial weight bearing (on left heel only with surgical shoe) Dressing / Incision Call your doctor if you observe: Fever of 101 or Higher, Shortness of breath, Dizziness, Fainting spells, Swelling in the ankles, Chest pain and Increased palpitations (irregular heartbeat) Follow Up Care Test Results: Test results from this visit will be discussed in further detail at your follow- up appointment, if applicable. Discharge Plan Admission Admit Date/Time: 08/29/24 11:30 Attending Provider: Lyndon Crooks Primary Care Provider: Ivette Chauhan Consulting Providers: Carlos Jefferson; Rosendo Archibald; Miriam Mac Instructions Additional Instructions / Restrictions: Wound care: 1. Remove all exterior dressing from the left foot. 2. Apply Betadine paint to the incision followed by Betadine soaked Adaptic, 4 x 4's, Kerlix wrap, cast padding and two 4 inch Jensen bandages. Dressing changes need to be performed 2 times per week and will be performed 1 time per week by Dr. Archibald at the wound care center. Discharge Orders/Prescriptions Prescriptions: New amlodipine 10 mg Tablet 10 mg PO DAILY 30 Days Qty: 30 0RF oxycodone 5 mg Tablet 5 mg PO TID PRN PRN (Reason: Pain Score 4-10) 3 Days Qty: 10 0RF Continued metoprolol succinate 50 mg tablet extended release 24 hr 50 mg PO DAILY gabapentin 300 mg capsule 300 mg PO BID sertraline 25 mg tablet 25 mg PO DAILY Patient Comments: md told pt that this interacts with antibiotic that pt has recently been on, so on hold. glipizide 5 mg tablet 5 mg PO BID insulin aspart U-100 [Novolog FlexPen U-100 Insulin] 100 unit/mL (3 mL) insulin pen See Protocol subcut TID Protocol: 6. Sliding Scale Insulin Custom Condition: mg/dl range Dose/Route: Number of Units Protocol Text: Custom Sliding Scale Patient Comments: calling [facility] for sliding scale (DME) Dexcom G7 Sensor Device MISCELLANEOUS Q10D (DME) Dexcom G6 Road Patcher Misc MISCELLANEOUS UD (DME) Dexcom G6 Transmitter Device MISCELLANEOUS UD linezolid 600 mg tablet 600 mg PO Q12H 14 Days Qty: 28 0RF Patient Comments: PHARMACY WORKING ON GETTING MEDICATION FOR PATIENT omeprazole 20 mg capsule,delayed release(DR/EC) 20 mg PO 0700 atorvastatin 20 mg tablet 20 mg PO QHS lisinopril 40 mg tablet 40 mg PO DAILY Digestive Relief 262 mg tablet 524 mg PO Q30M PRN (Reason: diarrhea) Rx Instructions: do not exceed 8 doses in a 24 hour period Changed insulin glargine [Lantus Solostar U-100 Insulin] 100 unit/mL (3 mL) insulin pen 40 unit subcut DAILY Qty: 1 0RF Referrals / Follow Up: Rosendo Archibald DPM [Med Staff - Active Staff] - (Follow-up with Dr. Archibald on Tuesday at the wound care center once discharged. Please call for appointment and time.) Ivette Chauhan MD [Primary Care Provider] - Within 1 Week Disposition Disposition (needs filled in before D/C Order can be placed): Home, Self Care
[2024-09-03 14:00] VITALS: BP 132/82; PULSE 66; RESP 18; TEMP 36.8; O2SAT 98
--- NOTE | 2024-09-03 14:00 | PCM.PN.ID ---
Physical Exam Narrative Feeling well, no fever, no n/v/d. Const alert and no apparent distress General Appearance: cooperative Resp normal air movement and clear to auscultation bilaterally Cardio regular rate and regular rhythm GI soft to palpation, non-tender and non-distended Skin Skin Narrative: no new rash ID ID: Route of nutrition/ use of supplements: [] Nutritional Intake: [] IV Site: [] [place] Catheter: [] Assessment & Plan Assessment/Plan (1) Chronic painful diabetic polyneuropathy: (2) Cellulitis of left foot: PLAN: On vanc/zosyn, OR 08/31/[address] Archibald with I&D down to bone for suspected osteo. Prior wound cx with MRSE and enterococcus. Spoke with micro lab, that MRSE was susc to bactrim. Surg cx now with brody epi, susc pending. Ok for discharge on po bactrim and augmentin, plan on 6 weeks abx pending further surg data. ID followup in 2 weeks. Will follow
--- NOTE | 2024-09-03 14:10 | PCM.DC.SUM ---
Providers Date of Admission: 08/29/24 Primary Care Physician: Dr. Ivette Chauhan MD Consultations 08/29/24 13:59 Consult: Podiatry Routine Consulting Provider: Rosendo Archibald Reason for Consult: diabetic foot ulcer EMERGENT Consult: No Notified: Yes Date Notified: 08/29/24 Time Notified: 13:59 Method of Notification: sent from the Comments:: Dr Archibald sent patient to ED, and is already aware 08/29/24 14:31 Consult: Onc/Wound/senior payroll administrator Routine Comment: Reason for Consult:: left foot wound 08/29/24 16:28 Consult: Infectious Disease Routine Consulting Provider: Carlos Jefferson Reason for Consult: diabetic foot ulcer, concerning for osteomyelitis EMERGENT Consult: No Notified: Yes Date Notified: 08/29/24 Time Notified: 16:28 Method of Notification: Text Reason For Visit: DIABETIC FOOD INFECTION Diagnosis Discharge Diagnosis (1) Chronic painful diabetic polyneuropathy: Status: Acute Code(s): E11.42 - Type 2 diabetes mellitus with diabetic polyneuropathy (2) Cellulitis of left foot: Status: Acute Code(s): L03.116 - Cellulitis of left lower limb Medications at Discharge Home Medications blood-glucose meter,continuous (Dexcom G6 Refrigerator Cabinetmaker) 07/25/24 blood-glucose sensor (Dexcom G7 Sensor device) 07/25/24 blood-glucose transmitter (Dexcom G6 Transmitter device) 07/25/24 gabapentin 300 mg capsule 300 mg PO BID NERVE PAIN 07/25/24 glipizide 5 mg tablet 5 mg PO BID 07/25/24 insulin aspart U-100 100 unit/mL (3 mL) subcutaneous pen (Novolog FlexPen U-100 Insulin aspart) See Protocol subcut TID 07/25/24 metoprolol succinate 50 mg tablet,extended release 24 hr 50 mg PO DAILY BLOOD PRESSURE 07/25/24 sertraline 25 mg tablet 25 mg PO DAILY 07/25/24 atorvastatin 20 mg tablet 20 mg PO QHS 08/29/24 bismuth subsalicylate 262 mg tablet (Digestive Relief) 524 mg PO Q30M PRN diarrhea 08/29/24 lisinopril 40 mg tablet 40 mg PO DAILY 08/29/24 omeprazole 20 mg capsule,delayed release 20 mg PO 0700 08/29/24 amlodipine 10 mg tablet 10 mg PO DAILY 30 days #30 tabs 09/03/24 amoxicillin 875 mg-potassium clavulanate 125 mg tablet 1 tab PO BID #28 tabs 09/03/24 insulin glargine 100 unit/mL (3 mL) subcutaneous pen (Lantus Solostar U-100 Insulin) 40 unit (0.4 mL) subcut DAILY #1 mL 09/03/24 oxycodone 5 mg tablet 5 mg PO TID PRN PRN Pain Score 4-10 3 days #10 tabs 09/03/24 sulfamethoxazole 800 mg-trimethoprim 160 mg tablet (Bactrim DS) 1 tab PO BID 14 days #28 tabs 09/03/24 Hospital Course Operations - (1. Incision and drainage, left hallux 2. Incision of bone cortex, left hallux 3. Delayed primary closure, left hallux) Procedures None and - (PAUL) Summary of Care Provided Minutes Spent on Discharge: 35 Hospital Course: Per HPI: SHEREE QUILES, is a 49 M with a PMH as outlined including diabetes mellitus who was admitted from the ED on 08/29/2024 after being referred by his bereavement program coordinator at the wound clinic for diabetic foot ulcer, with failed outpatient treatment. The ulcer had been present since June 2024 and he had been seeing the bereavement program coordinator at wound clinic and completed a course of levaquin. HOwever, the ulcer persisted and there was concern for osteomyelitis. He did have an MRI of the foot done on outpatient basis also which did not show any evidence of osteomyelitis. His bereavement program coordinator tried to start him on linezolid on outpatient basis, but this was pending insurance approval. Vitals in the ED were BP of 149/91, OR Of 75, RR of 16 and temp of 98.1F. He was saturating at 98% on room air. CBC showed hb of 14.6, wbc of 10.4 and platelets of 245. ESR is 57. Chemistry showed sodium of 133, potassium of 3.4 and Cr of 0.92. Blood cultures were ordered. He is being admitted to be managed for right diabetic foot ulcer with possible osteomyelitis. Hospital Course: 1. Diabetic foot ulcer with cellulitis?49-year-old male with history of diabetes presented to the hospital at the request of his bereavement program coordinator because of chronic ulcer. There was initially some concern for osteomyelitis however an outpatient MRI on 08/20/2024 was negative. He underwent an I&D and washout and infectious disease was consulted who recommended Augmentin and Bactrim for 2 weeks on discharge. He is feeling much better I discussed with him the plan for discharge today and he expressed understanding of the risk benefits of going home and would like to go home today. He did have an PAUL on workup for this left lower extremity which demonstrated a 0.8 on his left lower extremity. I recommended he follow-up with his PCP in 3 to 5 days and with podiatry as previously scheduled, he is a partial weightbearing on his left heel needs to offload the front of his left foot is much as possible. During his hospitalization his blood sugars were significantly elevated, I do recommend increasing his Lantus on discharge to 40 units a day with outpatient monitoring and adjustment by his primary care doctor. 2. Essential hypertension, GERD, hyperlipidemia, anxiety, depression are chronic medical conditions complicate his care. His medications were continued where appropriate. Physical Exam Narrative General: Alert, Oriented x3, Cooperative, No apparent distress HEENT: Atraumatic, PERRLA, EOMI, Normocephalic Oral: Moist Mucosa Neck: Supple, No JVD Lungs: Clear to auscultation, Normal air movement, No rhonchi, No wheeze, No rales Cardiovascular: Regular rate, Regular Rhythm, Normal S1, Normal S2, No murmurs Abdomen: Soft, Non Tender, Non-Distended, No Hepato-splenomegaly Extremities: No edema, Capillary Refill Less than 3 Seconds Skin: Left lower extremity dressing intact Musculoskeletal: No Tenderness to Palpation of Joints or Extremities Neurological: No focal neurological deficits, Motor Exam 5/5 strength throughout, Sensory exam intact to light touch and pain Psych/Mental Status: Normal Affect, Appropriate Weight / BMI Weight Weight: 222 lb 7.143 oz Body Mass Index (BMI) 28.5 ABG / Lab / Microbiology Data 09/03/24 06:59 09/03/24 06:59 Laboratory: Laboratory Results - last 24 hr 09/02/24 17:22: POC Glucose 377 H 09/02/24 18:50: Vancomycin Trough 20.4 H 09/02/24 21:41: POC Glucose 331 H 09/03/24 06:39: POC Glucose 279 H 09/03/24 06:59: WBC 7.1, RBC 4.82, Hgb 12.9 L, Hct 39.5 L, MCV 82.0, MCH 26.8 L, MCHC 32.7, RDW Std Deviation 35.9, RDW Coeff of Jen 12.0, Plt Count 211, MPV 9.7, Immature Gran % (Auto) 0.300, Neut % (Auto) 52.8, Lymph % (Auto) 34.0, [place] % (Auto) 10.5 H, Eos % (Auto) 1.7, Baso % (Auto) 0.7, Absolute Neuts (auto) 3.7, Absolute Lymphs (auto) 2.41, Nucleated RBC % 0, Sodium 135 L, Potassium 4.3, Chloride 102, Carbon Dioxide 23.0, Anion Gap 10, BUN 19 H, Creatinine 0.86, Estim Creat Clear Calc 131.80, Est GFR (MDRD) Af Amer 122, Est GFR (MDRD) Non-Af 101, BUN/Creatinine Ratio 22.2 H, Glucose 284 H, Calcium 8.8 09/03/24 11:42: POC Glucose 378 H Microbiology: Microbiology 08/31/24 Unknown Wound Drainage - Aerobic & Anaerobic Swabs Gram Stain - Final 08/31/24 Unknown Wound Drainage - Aerobic & Anaerobic Swabs Wound Culture - Preliminary Staphylococcus epidermidis 08/31/24 Unknown Wound Drainage - Aerobic & Anaerobic Swabs Anaerobic Culture - Preliminary Checking for anaerobes, further studies to follow. 08/31/24 Unknown Wound Drainage - Aerobic & Anaerobic Swabs Gram Stain - Final 08/31/24 Unknown Wound Drainage - Aerobic & Anaerobic Swabs Wound Culture - Preliminary Staphylococcus epidermidis 08/31/24 Unknown Wound Drainage - Aerobic & Anaerobic Swabs Anaerobic Culture - Preliminary Checking for anaerobes, further studies to follow. 08/31/24 Unknown Bone - Toe Gram Stain - Final 08/31/24 Unknown Bone - Toe Wound Culture - Preliminary No growth-Final to follow 08/31/24 Unknown Bone - Toe Anaerobic Culture - Preliminary No growth in 48 hours. 08/29/24 10:45 Blood Culture (Wb) - Left Forearm Blood Culture - Final No growth in 5 days. 08/29/24 14:15 Wound - Left Foot Gram Stain - Final 08/29/24 14:15 Wound - Left Foot Wound Culture - Final Coag Negative Staph D/C Instructions Discharge Diet: Low fat / Low cholesterol and Carb Control Diet Weight Bearing Status: Partial weight bearing (on left heel only with surgical shoe) Call your doctor if you observe: Fever of 101 or Higher, Shortness of breath, Dizziness, Fainting spells, Swelling in the ankles, Chest pain and Increased palpitations (irregular heartbeat) Meaningful Use Info Meaningful Use Meaningful Use Diagnoses (Choose all that apply): None applicable Ischemic Stroke Statin Dosing Therapy Reference: STATIN DOSE THERAPY REFERENCE: * Patients > 75 years receive moderate or high dose statin therapy. * Patients 75 years or YOUNGER should receive HIGH intensity statin dose unless contraindicated. You will be required to document reason for non-treatment if statin daily dose does not meet guidelines. HIGH DOSE STATIN THERAPY DAILY Atorvastatin > than or = to 40 mg Rosuvastatin > than or = to 20 mg Amlodipine + Atorvastatin > than or = to 2.5/40 mg Ezetimibe + Simvastatin 10/80 mg Simvastatin 80mg Discharge Plan Admission Admit Date/Time: 08/29/24 11:30 Attending Provider: Lyndon Crooks Primary Care Provider: Ivette Chauhan Consulting Providers: Carlos Jefferson; Rosendo Archibald; Miriam Mac Instructions Additional Instructions / Restrictions: Wound care: 1. Remove all exterior dressing from the left foot. 2. Apply Betadine paint to the incision followed by Betadine soaked Adaptic, 4 x 4's, Kerlix wrap, cast padding and two 4 inch Jensen bandages. Dressing changes need to be performed 2 times per week and will be performed 1 time per week by Dr. Archibald at the wound care center. Discharge Orders/Prescriptions Prescriptions: New amlodipine 10 mg Tablet 10 mg PO DAILY 30 Days Qty: 30 0RF oxycodone 5 mg Tablet 5 mg PO TID PRN PRN (Reason: Pain Score 4-10) 3 Days Qty: 10 0RF sulfamethoxazole-trimethoprim [Bactrim DS] 800-160 mg tablet 1 tab PO BID 14 Days Qty: 28 2RF amoxicillin-pot clavulanate 875-125 mg tablet 1 tab PO BID Qty: 28 0RF Continued metoprolol succinate 50 mg tablet extended release 24 hr 50 mg PO DAILY gabapentin 300 mg capsule 300 mg PO BID sertraline 25 mg tablet 25 mg PO DAILY Patient Comments: md told pt that this interacts with antibiotic that pt has recently been on, so on hold. glipizide 5 mg tablet 5 mg PO BID insulin aspart U-100 [Novolog FlexPen U-100 Insulin] 100 unit/mL (3 mL) insulin pen See Protocol subcut TID Protocol: 6. Sliding Scale Insulin Custom Condition: mg/dl range Dose/Route: Number of Units Protocol Text: Custom Sliding Scale Patient Comments: calling [facility] for sliding scale (DME) Dexcom G7 Sensor Device MISCELLANEOUS Q10D (DME) Dexcom G6 Refrigerator Cabinetmaker Misc MISCELLANEOUS UD (DME) Dexcom G6 Transmitter Device MISCELLANEOUS UD omeprazole 20 mg capsule,delayed release(DR/EC) 20 mg PO 0700 atorvastatin 20 mg tablet 20 mg PO QHS lisinopril 40 mg tablet 40 mg PO DAILY Digestive Relief 262 mg tablet 524 mg PO Q30M PRN (Reason: diarrhea) Rx Instructions: do not exceed 8 doses in a 24 hour period Changed insulin glargine [Lantus Solostar U-100 Insulin] 100 unit/mL (3 mL) insulin pen 40 unit subcut DAILY Qty: 1 0RF Discontinued linezolid 600 mg tablet 600 mg PO Q12H 14 Days Qty: 28 0RF Patient Comments: PHARMACY WORKING ON GETTING MEDICATION FOR PATIENT Referrals / Follow Up: Rosendo Archibald DPM [Med Staff - Active Staff] - (Follow-up with Dr. Archibald on Tuesday at the wound care center once discharged. Please call for appointment and time.) Ivette Chauhan MD [Primary Care Provider] - Within 1 Week Disposition Disposition (needs filled in before D/C Order can be placed): Home, Self Care Charges/Coding Visit Charges Inpatient E&M: 15494 Disch Hosp >30min
--- NOTE | 2024-09-03 15:03 | PHA.DC_ITS ---
Pharmacy [facility] Pharm[facility] Service has performed discharge medication reconciliation and counseling for this patient. The patient's discharge medication list was reviewed for discrepancies and discrepancies were resolved. The patient was counseled on the following discharge medications and changes in medications for homegoing were reviewed. The Reason for Use, instructions for use, and potential side effects were reviewed for all new medications. The patient's questions regarding all of their medications were answered. 1. Amlodipine 10 mg PO daily 2. Augmentin 875-125 mg PO BID x 2 weeks 3. Bactrim DS BID x 2 weeks 4. Oxycodone 5 mg PO TID PRN pain (4-10) The patient was able to verbally demonstrate an understanding of their discharge medications. Medications at Discharge Home Medications blood-glucose meter,continuous (Dexcom G6 Antisqueak Worker) 07/25/24 blood-glucose sensor ([employer] G7 Sensor device) 07/25/24 blood-glucose transmitter (Dexcom G6 Transmitter device) 07/25/24 gabapentin 300 mg capsule 300 mg PO BID NERVE PAIN 07/25/24 glipizide 5 mg tablet 5 mg PO BID 07/25/24 insulin aspart U-100 100 unit/mL (3 mL) subcutaneous pen (Novolog FlexPen U-100 Insulin aspart) See Protocol subcut TID 07/25/24 metoprolol succinate 50 mg tablet,extended release 24 hr 50 mg PO DAILY BLOOD PRESSURE 07/25/24 sertraline 25 mg tablet 25 mg PO DAILY 07/25/24 atorvastatin 20 mg tablet 20 mg PO QHS 08/29/24 bismuth subsalicylate 262 mg tablet (Digestive Relief) 524 mg PO Q30M PRN diarrhea 08/29/24 lisinopril 40 mg tablet 40 mg PO DAILY 08/29/24 omeprazole 20 mg capsule,delayed release 20 mg PO 0700 08/29/24 amlodipine 10 mg tablet 10 mg PO DAILY 30 days #30 tabs 09/03/24 amoxicillin 875 mg-potassium clavulanate 125 mg tablet 1 tab PO BID #28 tabs 09/03/24 insulin glargine 100 unit/mL (3 mL) subcutaneous pen (Lantus Solostar U-100 Insulin) 40 unit (0.4 mL) subcut DAILY #1 mL 09/03/24 oxycodone 5 mg tablet 5 mg PO TID PRN PRN Pain Score 4-10 3 days #10 tabs 09/03/24 sulfamethoxazole 800 mg-trimethoprim 160 mg tablet (Bactrim DS) 1 tab PO BID 14 days #28 tabs 09/03/24
== END 2024-09-03 16:22 | disposition home or self-care (01) | DRG 364 ==
LOC: ED 11:13 → MS3 11:37
PROVIDERS: Internal Medicine Infectious Disease; Podiatrist Foot & Ankle Surgery; Admitting Provider Student in an Organized Health Care Education/Training Program; Emergency Provider Emergency Medicine; PCP Student in an Organized Health Care Education/Training Program; Referring Provider Emergency Medicine; Visit Provider Family Medicine
PROC: 0M9 Bursae and Ligaments, Drainage (ICD-10-PCS; principal; 2024-08-31 17:15)
DX: E11.621 Type 2 diabetes mellitus with foot ulcer (principal); L97.523 Non-pressure chronic ulcer of other part of left foot with necrosis of muscle; E11.42 Type 2 diabetes mellitus with diabetic polyneuropathy; E78.5 Hyperlipidemia, unspecified; L03.032 Cellulitis of left toe; Z66 Do not resuscitate; I10 Essential (primary) hypertension; F32.A Depression, unspecified; Z79.4 Long term (current) use of insulin; I25.10 Atherosclerotic heart disease of native coronary artery without angina pectoris; F41.9 Anxiety disorder, unspecified; K21.9 Gastro-esophageal reflux disease without esophagitis; Z79.84 Long term (current) use of oral hypoglycemic drugs; Z79.2 Long term (current) use of antibiotics; Z95.5 Presence of coronary angioplasty implant and graft; Z87.891 Personal history of nicotine dependence; R53.83 Other fatigue
CPT/HCPCS: 11043; 36415; 73620; 73630; 76000; 80048; 80053; 80202; 82962; 83036; 85025; 85610; 85652; 85730; 86140; 87015; 87040; 87070; 87075; 87077; 87102; 87116; 87186; 87205; 87206; 87640; 88304; 88305; 88311; 90656; 93005; 93923; 97802; 99213; 99282; 99406; A4216; G0463; J2405

== ENCOUNTER 2024-09-26 13:00 | Outpatient (RCR) | payer MEDICAID, SELFPAY ==
[2024-08-28 00:45] VITALS: BP 101/52; PULSE 117; RESP 18; TEMP 36.1; BMI 29.4
[2024-08-29 09:39] VITALS: BP 150/89; PULSE 76; RESP 16; TEMP 36.6; BMI 29.4
--- NOTE | 2024-08-29 20:54 | PN.PCM_ITS ---
History of Present Illness Date of Service: 08/29/24 Chief Complaint: Left foot wound History of Wound: Mr. Jefferson is a 49-year-old diabetic male presenting with care center today for follow-up evaluation of full-thickness wound to the plantar aspect of the left hallux. Patient received his MRI results last week. He is also here to evaluate the full-thickness wound. He had a TCC in place. Subjective Subjective Mr. Jefferson is a 49-year-old diabetic male presenting to wound care center today follow-up evaluation of full-thickness plantar wound to the left foot. Patient was seen by nurse practitioner secondary to a total contact cast. She noticed increase in redness to the big toe joint of the left foot. Order was given for new antibiotics. Patient states that he was unable to get the new antibiotic secondary to insurance coverage. He admits to redness and pain to the left foot. Denies trauma. Blood sugar has been elevated. Denies constitutional symptoms. Other pedal complaints at this time. Objective Data Objective Data Vital Signs: Vital Signs Temp Pulse Resp BP O2 Del Method 97.9 F 76 16 150/89 H Room Air 08/29/24 09:39 08/29/24 09:39 08/29/24 09:39 08/29/24 09:39 08/29/24 09:39 Oxygen Delivery Method Room Air Weight: 103.873 kg Body Mass Index (BMI) 29.4 Physical Exam Narrative Vascular: DP and PT pulse are palpable to the left lower extremity. CFT is brisk. Nonblanchable erythema appreciated to the first metatarsal phalangeal joint at the level of the hallux, proximal streaking is noted. Skin temperature gradient is warm to warm from proximal ankle to distal digit. Focal increase appreciated to the left great toe. Neurological: Light touch intact. Protective sensation is absent. Dermatological: Full-thickness ulceration measuring 0.7 x 0.7 x 1.4 cm to the plantar left hallux, probe to muscle and periosteum. There is some slight undermining towards the proximal martin. Erythema with proximal streaking. Musculoskeletal: No pain with palpation to the full-thickness wound or with range of motion to the left big toe joint. No pain with calf pressure Const alert, oriented x3 and no apparent distress Debridement Note Debridement Note Post-Debridement Measurements and Additional Note: Post-Debridement Measurements/Treatment WC - Nurse 1 - General Ulcer Assessment Start: 08/29/24 09:38 Freq: Status: Active Protocol: BLANCA Activity Type Activity Date Activity User E-sign Co-sign Detail Recorded Client Recorded Date Recorded By Document 08/29/24 09:39 [id number] 08/29/24 09:45 08/29/24 09:39 - Today's Visit Information Type of service Follow-up Visit (Physician/RECREATION ESTABLISHMENT MANAGER ) Arrival Mode Ambulatory Patient Identification Verified (Name & Yes ) Height and Weight Body Mass Index (BMI) 29.4 BMI Classification Overweight Vital Signs Temperature (97.8 F-99.1 F) 97.9 F Temperature Source Temporal Pulse Rate (60-100) 76 Pulse Location Monitor Respiratory Rate (12-18) 16 Respiratory rate source Observation Oxygen Delivery Method Room Air Blood Pressure (90/60-120/80) 150/89 H Blood Pressure Mean (mm Hg) 109 Source Monitor Position Sitting Blood Pressure Location Left Arm History Since Last Visit- (Skip if this is Patient's initial visit) Have you changed medications since your No last visit? Any new allergies or adverse reactions No Had a fall/change in ADL's that may No increase risk of falls Signs or symptoms of abuse and/or No neglect since last visit Have you been in the hospital since your No last visit? Has dressing in place as prescribed Yes Has compression in place as prescribed Yes Has offloadiing in place as prescribed Yes Experienced any changes in pain level or No management Left Footwear Surgical Shoe with pressure relief insole Right Footwear Regular Shoe Pain Scale: 0-10 Numeric Is Patient Pain Free? Yes - Nurse 1 - General Ulcer Measurement Start: 08/29/24 09:38 Freq: Status: Active Protocol: Activity Type Activity Date Activity User E-sign Co-sign Detail Recorded Client Recorded Date Recorded By Document 08/29/24 09:39 [id number] 08/29/24 09:45 08/29/24 09:39 Wound Center Nurse 1 #1 LT PLANTAR -Current Size (cm) - Length 0.6 -Current Size (cm) - Width 0.5 -Current Size (cm) - Depth 1.1 -Total Square Cm 0.30 -Date of Last Picture (Recall this 08/29/24 field) -Photo Taken Yes -Epithelialization None Present -Tunneling No -Undermining/Tunneling No -Circular Undermining No -Exudate Amt Small -Exudate Type Yellow/Green -Wound Margin Distinct, Outline Attached -Granulation Amt None Present (0 %) -Slough/Fibrin No -Texture (Smiley-wound Skin Appearance) Assessed,Callus -Moisture (Smiley-wound Skin Appearance) Assessed, Maceration -Color (Smiley-wound Skin Appearance) Assessed, Erythema -Temperature (Smiley-wound Skin Hot Appearance) -Ulcer Cleansing Rinsed/ Irrigated with Saline -Foul Odor after Cleansing No -Anesthetic Used 5% Lidocaine Gel - Nurse 2 - General Ulcer CM Notes Start: 08/29/24 09:38 Freq: Status: Active Protocol: Activity Type Activity Date Activity User E-sign Co-sign Detail Recorded Client Recorded Date Recorded By Document 08/29/24 10:07 DANIEL [id number] 08/29/24 10:11 DANIEL 08/29/24 10:07 Wound Center Nurse 2 -Time 10:10 -Correct Patient No -Correct Side, Site, Position No -Wound/Ulcer Outcome Not Healed -Wound Comment(s) told to go to Emergency room Pain Scale: 0-10 Numeric Is Patient Pain Free? Yes - Nurse 3 - General Ulcer D/C NN Start: 08/29/24 09:38 Freq: Status: Active Protocol: Activity Type Activity Date Activity User E-sign Co-sign Detail Recorded Client Recorded Date Recorded By Document 08/29/24 10:11 DANIEL [id number] 08/29/24 10:12 DANIEL 08/29/24 10:11 Wound Care Center Nurse 3 #1 LT PLANTAR -Ulcer Cleansing Rinsed/ Irrigated with Saline -Foul Odor after Cleansing No -Other Dressing betadine -Primary Dressing Covered/Secured with Dry Gauze, Secured with Tape Pain Scale: 0-10 Numeric Is Patient Pain Free? Yes WC - Visit Discharge Discharge Condition Stable Ambulatory Status Ambulatory Transportation Private Auto Medication Reconcilliation completed & Yes provided to patient/care provider Clinical Summary of Care Provided Yes Assessment/Plan Assessment/Plan (1) Cellulitis of left foot: CODE(S): L03.116 - Cellulitis of left lower limb PLAN: Patient was examined and evaluated. All findings were discussed with the patient. All questions were answered to the patient satisfaction. Patient shows evidence of worsening cellulitis to the first metatarsophalangeal joint and hallux of the left foot. Patient was instructed to present to the emergency department for admission under medicine for evaluation and consult podiatry for surgical intervention. Patient was understanding this and will present to the emergency room at [facility] for evaluation. Discussed with the patient prior to leaving the wound care center that he is at risk for amputation to the left great toe which she was understanding of. Also educated the patient that you will need 4 to 6 weeks of PICC line antibiotics if there is concern or evidence of osteomyelitis with bone cultures that are positive. He was understanding of this. (2) Non-pressure chronic ulcer of other part of left foot with necrosis of muscle: CODE(S): L97.523 - Non-pressure chronic ulcer of other part of left foot with necrosis of muscle
--- NOTE | 2024-08-30 08:11 | WC ---
PHOTO 08/29/24 LEFT PLANTAR
[2024-09-05 09:57] VITALS: BP 126/83; PULSE 63; RESP 18; TEMP 36.4; BMI 29.4
--- NOTE | 2024-09-05 11:13 | PN.PCM_ITS ---
History of Present Illness Date of Service: 09/05/24 Chief Complaint: Left foot wound History of Wound: Mr. Jefferson is a 49-year-old diabetic male presenting with care center today for follow-up evaluation of full-thickness wound to the plantar aspect of the left hallux. Patient received his MRI results last week. He is also here to evaluate the full-thickness wound. He had a TCC in place. Subjective Subjective Mr. Antony is a 49-year-old diabetic male presenting to wound care center today for follow-up evaluation of full-thickness wound of the plantar aspect of the left great toe. Patient was discharged from the hospital after being cleared by medicine, podiatry and infectious disease. He was discharged on oral Augmentin and Bactrim that he has taken as prescribed. He has left his dressing clean dry and intact. The patient is status post surgical intervention consisting of incision and drainage, incision of bone cortex with delayed primary closure to the full-thickness wound to the plantar aspect of the left great toe. Patient denies any pain at this time. He is working on controlling his blood sugar. He is nonweightbearing to the left foot except with heel transferring. Denies trauma. Denies constitutional symptoms. Other pedal complaints at this time. Objective Data Objective Data Vital Signs: Vital Signs Temp Pulse Resp BP O2 Del Method 97.6 F L 63 18 126/83 H Room Air 09/05/24 09:57 09/05/24 09:57 09/05/24 09:57 09/05/24 09:57 09/05/24 09:57 Oxygen Delivery Method Room Air Weight: 103.873 kg Body Mass Index (BMI) 29.4 Physical Exam Narrative Vascular: DP and PT pulses are palpable to left lower extremity. CFT is brisk. Improve erythema to the left hallux and first metatarsal phalangeal joint. Erythema is blanchable. Neurological: Light touch intact. Protective sensation is absent. Dermatological: Full-thickness wound/incision is well coapted with suture. No drainage, malodor or probe to bone. Musculoskeletal: No pain with palpation to the full-thickness wound or with range of motion to the left big toe joint. No pain with calf pressure Const alert, oriented x3 and no apparent distress Debridement Note Debridement Note Post-Debridement Measurements and Additional Note: Post-Debridement Measurements/Treatment WC - Nurse 1 - General Ulcer Assessment Start: 08/29/24 09:38 Freq: Status: Active Protocol: CHARMAINE Activity Type Activity Date Activity User E-sign Co-sign Detail Recorded Client Recorded Date Recorded By Document 08/29/24 09:39 [id number] 08/29/24 09:45 Document 09/05/24 09:57 KW [id number] 09/05/24 10:11 KW 08/29/24 09/05/24 09:39 09:57 - Today's Visit Information Type of service Follow-up Visit Follow-up Visit (Physician/[employer] (Physician/[employer] ) ) Arrival Mode Ambulatory Ambulatory Patient Identification Verified (Name & Yes Yes ) Height and Weight Body Mass Index (BMI) 29.4 29.4 BMI Classification Overweight Overweight Vital Signs Temperature (97.8 F-99.1 F) 97.9 F 97.6 F L Temperature Source Temporal Temporal Pulse Rate (60-100) 76 63 Pulse Location Monitor Monitor Respiratory Rate (12-18) 16 18 Respiratory rate source Observation Observation Oxygen Delivery Method Room Air Room Air Blood Pressure (90/60-120/80) 150/89 H 126/83 H Blood Pressure Mean (mm Hg) 109 97 Source Monitor Monitor Position Sitting Semi-Fowlers Blood Pressure Location Left Arm Left Arm History Since Last Visit- (Skip if this is Patient's initial visit) Have you changed medications since your No No last visit? Any new allergies or adverse reactions No No Had a fall/change in ADL's that may No No increase risk of falls Signs or symptoms of abuse and/or No No neglect since last visit Have you been in the hospital since your No Yes last visit? Has dressing in place as prescribed Yes Yes Has compression in place as prescribed Yes Yes Has offloadiing in place as prescribed Yes N/A Experienced any changes in pain level or No No management Left Footwear Surgical Shoe Surgical Shoe with pressure with pressure relief insole relief insole Right Footwear Regular Shoe Regular Shoe Pain Scale: 0-10 Numeric Is Patient Pain Free? Yes Yes - Nurse 1 - General Ulcer Measurement Start: 08/29/24 09:38 Freq: Status: Active Protocol: Activity Type Activity Date Activity User E-sign Co-sign Detail Recorded Client Recorded Date Recorded By Document 08/29/24 09:39 [id number] 08/29/24 09:45 GM Document 09/05/24 09:57 KW [id number] 09/05/24 10:11 KW 08/29/24 09/05/24 09:39 09:57 Wound Center Nurse 1 #1 LT PLANTAR post op -Current Size (cm) - Length 0.6 1.6 -Current Size (cm) - Width 0.5 0.3 -Current Size (cm) - Depth 1.1 0.3 -Total Square Cm 0.30 0.48 -Date of Last Picture (Recall this 08/29/24 09/05/24 field) -Photo Taken Yes -Epithelialization None Present -Tunneling No -Undermining/Tunneling No -Circular Undermining No -Exudate Amt Small Medium -Exudate Type Yellow/Green Serosanguineous -Wound Margin Distinct, Thickened Outline Attached -Granulation Amt None Present (0 Large (67-100%) %) -Granulation Quality [place] -Slough/Fibrin No -Necrosis Amt Small (1-33%) -Necrotic Tissue Type Adherent Slough -Texture (Smiley-wound Skin Appearance) Assessed,Callus Assessed,Callus -Moisture (Smiley-wound Skin Appearance) Assessed, Assessed Maceration -Color (Smiley-wound Skin Appearance) Assessed, Assessed, Erythema Erythema -Temperature (Smiley-wound Skin Hot No Abnormality Appearance) (Pt Warm) -Tenderness on Palpation (Smiley-wound No Skin Appearance) -Ulcer Cleansing Rinsed/ Soap and Water Irrigated with Saline -Foul Odor after Cleansing No No -Anesthetic Used 5% Lidocaine 5% Lidocaine Gel Gel WC - Nurse 2 - General Ulcer CM Notes Start: 08/29/24 09:38 Freq: Status: Active Protocol: Activity Type Activity Date Activity User E-sign Co-sign Detail Recorded Client Recorded Date Recorded By Document 08/29/24 10:07 JF [id number] 08/29/24 10:11 JF Document 09/05/24 10:26 JF [id number] 09/05/24 10:27 JF 08/29/24 09/05/24 10:07 10:26 Wound Center Nurse 2 #1 LT PLANTAR post op -Time 10:10 -Correct Patient No No -Correct Side, Site, Position No No -Correct Procedure No -Procedure Performed No -Wound/Ulcer Outcome Not Healed Not Healed -Bleeding Controlled with Pressure -Type of Offloading Surgical Shoe -Assistive Device(s) Crutches -Debridement - Subq, 1st 20sq cm No -Wound Comment(s) told to go to Emergency room Pain Scale: 0-10 Numeric Is Patient Pain Free? Yes Yes - Nurse 3 - General Ulcer D/C NN Start: 08/29/24 09:38 Freq: Status: Active Protocol: Activity Type Activity Date Activity User E-sign Co-sign Detail Recorded Client Recorded Date Recorded By Document 08/29/24 10:11 [id number] 08/29/24 10:12 Document 09/05/24 10:48 [id number] 09/05/24 10:48 08/29/24 09/05/24 10:11 10:48 Wound Care Center Nurse 3 #1 LT PLANTAR post op -Ulcer Cleansing Rinsed/ Rinsed/ Irrigated with Irrigated with Saline Saline -Foul Odor after Cleansing No No -Other Dressing betadine betadine adaptic -Primary Dressing Covered/Secured with Dry Gauze, Dry Gauze & Secured with Roll Gauze, Tape Secured with Tape Left -Compression Wrap Jensen Wrap Pain Scale: 0-10 Numeric Is Patient Pain Free? Yes Yes - Visit Discharge Discharge Condition Stable Stable Ambulatory Status Ambulatory Ambulatory Transportation Private Auto Private Auto Medication Reconcilliation completed & Yes Yes provided to patient/care provider Clinical Summary of Care Provided Yes Yes Assessment/Plan Assessment/Plan (1) Osteomyelitis of toe of left foot: CODE(S): M86.9 - Osteomyelitis, unspecified PLAN: Patient was examined and evaluated. All findings were discussed with the patient. All questions were answered to the patient's satisfaction. No open debridement was done during this visit. The incision was dressed with Steri-Strips, Betadine soaked Adaptic, dry sterile dressing and a single-layer Cabezas compression bandage left lower extremity followed by surgical shoe. Patient was given a prescription for crutches to be nonweightbearing to left lower extremity. Patient will continue to practice strict blood sugar monitoring and control. It was discussed in great detail that the patient is at risk for amputation to the left foot if he does not control his blood sugar which she is understanding of. Patient will follow-up with infectious disease on 09/26/2024. Follow-up at the wound care center with Dr. Archibald in 1 week. (2) Cellulitis of left foot: CODE(S): L03.116 - Cellulitis of left lower limb (3) Non-pressure chronic ulcer of other part of left foot with necrosis of muscle: CODE(S): L97.523 - Non-pressure chronic ulcer of other part of left foot with necrosis of muscle
--- NOTE | 2024-09-06 09:26 | WC ---
PHOTO 09/05/24 LEFT PLANTAR POST OP
[2024-09-12 08:03] VITALS: BP 124/72; PULSE 72; RESP 18; TEMP 35.9; BMI 29.4
--- NOTE | 2024-09-12 09:26 | PN.PCM_ITS ---
History of Present Illness Date of Service: 09/12/24 Chief Complaint: Left foot wound History of Wound: Mr. Jefferson is a 49-year-old diabetic male presenting with care center today for follow-up evaluation of full-thickness wound to the plantar aspect of the left hallux. Patient received his MRI results last week. He is also here to evaluate the full-thickness wound. He had a TCC in place. Subjective Subjective Mr. Jefferson is a 49-year-old diabetic male presenting to wound care center today for follow-up evaluation of left foot surgery. He has left his dressing clean dry and intact. He denies any drainage or strikethrough. He denies any pain to left lower extremity. He does admit the dressing was rewrapped a little too tight during his last visit. He is taking antibiotics as written. He will be following up with infectious disease on 09/26. Blood sugar has been up and down per the patient but he is doing everything he can to maintain strict blood sugar control. Denies trauma. Denies constitutional symptoms. Other pedal complaints at this time. Objective Data Objective Data Vital Signs: Vital Signs Temp Pulse Resp BP O2 Del Method 96.7 F L 72 18 124/72 H Room Air 09/12/24 08:03 09/12/24 08:03 09/12/24 08:03 09/12/24 08:03 09/12/24 08:03 Oxygen Delivery Method Room Air Weight: 103.873 kg Body Mass Index (BMI) 29.4 Physical Exam Narrative Vascular: DP and PT pulses are palpable to left lower extremity. CFT is brisk. Improve erythema to the left hallux and first metatarsal phalangeal joint. Erythema is blanchable. Neurological: Light touch intact. Protective sensation is absent. Dermatological: Full-thickness wound/incision is well coapted with suture. No drainage, malodor or probe to bone. Musculoskeletal: No pain with palpation to the full-thickness wound or with range of motion to the left big toe joint. No pain with calf pressure Const alert, oriented x3 and no apparent distress Debridement Note Debridement Note Post-Debridement Measurements and Additional Note: Post-Debridement Measurements/Treatment SHERRI - Nurse 1 - General Ulcer Assessment Start: 08/29/24 09:38 Freq: Status: Active Protocol: CHARMAINE Activity Type Activity Date Activity User E-sign Co-sign Detail Recorded Client Recorded Date Recorded By Document 08/29/24 09:39 GM [id number] 08/29/24 09:45 GM Document 09/05/24 09:57 KW [id number] 09/05/24 10:11 KW Document 09/12/24 08:03 KW [id number] 09/12/24 08:11 KW 08/29/24 09/05/24 09/12/24 09:39 09:57 08:03 WC - Today's Visit Information Type of service Follow-up Visit Follow-up Visit Follow-up Visit (Physician/CASTING WHEEL OPERATOR HELPER (Physician/CASTING WHEEL OPERATOR HELPER (Physician/CASTING WHEEL OPERATOR HELPER ) ) ) Arrival Mode Ambulatory Ambulatory Ambulatory Patient Identification Verified (Name & Yes Yes Yes ) Height and Weight Body Mass Index (BMI) 29.4 29.4 29.4 BMI Classification Overweight Overweight Overweight Vital Signs Temperature (97.8 F-99.1 F) 97.9 F 97.6 F L 96.7 F L Temperature Source Temporal Temporal Temporal Pulse Rate (60-100) 76 63 72 Pulse Location Monitor Monitor Monitor Respiratory Rate (12-18) 16 18 18 Respiratory rate source Observation Observation Observation Oxygen Delivery Method Room Air Room Air Room Air Blood Pressure (90/60-120/80) 150/89 H 126/83 H 124/72 H Blood Pressure Mean (mm Hg) 109 97 89 Source Monitor Monitor Monitor Position Sitting Semi-Fowlers Semi-Fowlers Blood Pressure Location Left Arm Left Arm Left Arm History Since Last Visit- (Skip if this is Patient's initial visit) Have you changed medications since your No No No last visit? Any new allergies or adverse reactions No No No Had a fall/change in ADL's that may No No No increase risk of falls Signs or symptoms of abuse and/or No No No neglect since last visit Have you been in the hospital since your No Yes No last visit? Has dressing in place as prescribed Yes Yes Yes Has compression in place as prescribed Yes Yes Yes Has offloadiing in place as prescribed Yes N/A Yes Experienced any changes in pain level or No No No management Left Footwear Surgical Shoe Surgical Shoe Surgical Shoe with pressure with pressure with pressure relief insole relief insole relief insole Right Footwear Regular Shoe Regular Shoe Regular Shoe Pain Scale: 0-10 Numeric Is Patient Pain Free? Yes Yes Yes WC - Nurse 1 - General Ulcer Measurement Start: 08/29/24 09:38 Freq: Status: Active Protocol: Activity Type Activity Date Activity User E-sign Co-sign Detail Recorded Client Recorded Date Recorded By Document 08/29/24 09:39 GM [id number] 08/29/24 09:45 GM Document 09/05/24 09:57 KW [id number] 09/05/24 10:11 KW Document 09/12/24 08:03 KW [id number] 09/12/24 08:11 KW 08/29/24 09/05/24 09/12/24 09:39 09:57 08:03 Wound Center Nurse 1 #1 LT PLANTAR post op -Current Size (cm) - Length 0.6 1.6 0.1 -Current Size (cm) - Width 0.5 0.3 0.1 -Current Size (cm) - Depth 1.1 0.3 0.1 -Total Square Cm 0.30 0.48 0.01 -Date of Last Picture (Recall this 08/29/24 09/05/24 field) -Photo Taken Yes -Epithelialization None Present -Tunneling No -Undermining/Tunneling No -Circular Undermining No -Exudate Amt Small Medium Small -Exudate Type Yellow/Green Serosanguineous Serosanguineous -Wound Margin Distinct, Thickened Distinct, Outline Outline Attached Attached -Granulation Amt None Present (0 Large (67-100%) %) -Granulation Quality [place] -Slough/Fibrin No -Necrosis Amt Small (1-33%) -Necrotic Tissue Type Adherent Slough -Texture (Smiley-wound Skin Appearance) Assessed,Callus Assessed,Callus Assessed -Moisture (Smiley-wound Skin Appearance) Assessed, Assessed Assessed Maceration -Color (Smiley-wound Skin Appearance) Assessed, Assessed, Assessed, Erythema Erythema Erythema -Temperature (Smiley-wound Skin Hot No Abnormality No Abnormality Appearance) (Pt Warm) (Pt Warm) -Tenderness on Palpation (Smiley-wound No No Skin Appearance) -Ulcer Cleansing Rinsed/ Soap and Water Soap and Water Irrigated with Saline -Foul Odor after Cleansing No No No -Anesthetic Used 5% Lidocaine 5% Lidocaine Gel Gel -Wound Comment(s) steri strips intact WC - Nurse 2 - General Ulcer CM Notes Start: 08/29/24 09:38 Freq: Status: Active Protocol: Activity Type Activity Date Activity User E-sign Co-sign Detail Recorded Client Recorded Date Recorded By Document 08/29/24 10:07 [id number] 08/29/24 10:11 Document 09/05/24 10:26 [id number] 09/05/24 10:27 Document 09/12/24 08:23 [id number] 09/12/24 08:25 JF 08/29/24 09/05/24 09/12/24 10:07 10:26 08:23 Wound Center Nurse 2 #1 LT PLANTAR post op -Time 10:10 -Correct Patient No No No -Correct Side, Site, Position No No No -Correct Procedure No No -Procedure Performed No No -Post Debridement (cm) - Length 0.1 -Post Debridement (cm) - Width 0.1 -Post Debridement (cm) - Depth 0.1 -Total Square (Post) (cm) 0.01 -Area of Debridement (cm) - Length 0.1 -Area of Debridement (cm) - Width 0.1 -Total Square (Area) (cm) 0.01 -Wound/Ulcer Outcome Not Healed Not Healed Not Healed -Bleeding Controlled with Pressure NA -Offloading Yes -Type of Offloading Surgical Shoe Surgical Shoe -Assistive Device(s) Crutches -Debridement - Subq, 1st 20sq cm No No -Wound Comment(s) told to go to Emergency room Pain Scale: 0-10 Numeric Is Patient Pain Free? Yes Yes Yes WC - Nurse 3 - General Ulcer D/C NN Start: 08/29/24 09:38 Freq: Status: Active Protocol: Activity Type Activity Date Activity User E-sign Co-sign Detail Recorded Client Recorded Date Recorded By Document 08/29/24 10:11 [id number] 08/29/24 10:12 Document 09/05/24 10:48 [id number] 09/05/24 10:48 Document 09/12/24 09:23 JF 00 09/12/24 09:23 JF 08/29/24 09/05/24 09/12/24 10:11 10:48 09:23 Wound Care Center Nurse 3 #1 LT PLANTAR post op -Ulcer Cleansing Rinsed/ Rinsed/ Irrigated with Irrigated with Saline Saline -Foul Odor after Cleansing No No -Other Dressing betadine betadine adaptic -Primary Dressing Covered/Secured with Dry Gauze, Dry Gauze & Dry Gauze & Secured with Roll Gauze, Roll Gauze, Tape Secured with Secured with Tape Tape Left -Compression Wrap Jensen Wrap -Tubular Bandage Single Layer -Size of Tubigrip Used Size E -Size E ($) 1 Pain Scale: 0-10 Numeric Is Patient Pain Free? Yes Yes Yes WC - Visit Discharge Discharge Condition Stable Stable Stable Ambulatory Status Ambulatory Ambulatory Ambulatory Transportation Private Auto Private Auto Private Auto Medication Reconcilliation completed & Yes Yes Yes provided to patient/care provider Clinical Summary of Care Provided Yes Yes Yes Assessment/Plan Assessment/Plan (1) Osteomyelitis of toe of left foot: CODE(S): M86.9 - Osteomyelitis, unspecified PLAN: Patient was examined and evaluated. All findings were discussed with the patient. All questions were answered to the patient's satisfaction. No open debridement was done during this visit. The incision was dressed with Steri-Strips, Betadine soaked Adaptic, dry sterile dressing and a single-layer Cabezas compression bandage left lower extremity followed by surgical shoe. Patient will continue to practice strict blood sugar monitoring and control. It was discussed in great detail that the patient is at risk for amputation to the left foot if he does not control his blood sugar which she is understanding of. Patient will follow-up with infectious disease on 09/26/2024. Follow-up at the wound care center with Dr. Archibald in 1 week. (2) Cellulitis of left foot: CODE(S): L03.116 - Cellulitis of left lower limb (3) Non-pressure chronic ulcer of other part of left foot with necrosis of muscle: CODE(S): L97.523 - Non-pressure chronic ulcer of other part of left foot with necrosis of muscle
[2024-09-19 10:49] VITALS: BP 140/92; PULSE 103; RESP 18; TEMP 36.9; BMI 29.4
[2024-09-26 12:49] VITALS: BP 131/82; PULSE 74; RESP 18; TEMP 36.5; BMI 29.4
--- NOTE | 2024-09-26 13:11 | PN.PCM_ITS ---
History of Present Illness Date of Service: 09/26/24 Chief Complaint: Left foot wound History of Wound: Mr. Jefferson is a 49-year-old diabetic male presenting with care center today for follow-up evaluation of full-thickness wound to the plantar aspect of the left hallux. Patient received his MRI results last week. He is also here to evaluate the full-thickness wound. He had a TCC in place. Subjective Subjective Mr. Jefferson is a 49-year-old diabetic male presenting to wound care center today for follow-up evaluation of left foot surgery. He has left his dressing clean dry and intact. He does admit to elevated blood sugars and his last reading was 190+ milligrams per deciliter. He denies any strikethrough to the dressing. Denies trauma. Denies constitutional symptoms. No other pedal complaints at this time. Objective Data Objective Data Vital Signs: Vital Signs Temp Pulse Resp BP O2 Del Method 97.7 F L 74 18 131/82 H Room Air 09/26/24 12:49 09/26/24 12:49 09/26/24 12:49 09/26/24 12:49 09/19/24 10:49 Oxygen Delivery Method Room Air Weight: 103.873 kg Body Mass Index (BMI) 29.4 Physical Exam Narrative Vascular: DP and PT pulses are palpable to left lower extremity. CFT is brisk. Improve erythema to the left hallux and first metatarsal phalangeal joint. Erythema is blanchable. Neurological: Light touch intact. Protective sensation is absent. Dermatological: Full-thickness ulceration to plantar aspect of left hallux measuring 0.6 x 0.2 x 0.2 cm. Wound base is granular nature. No sign of infection. Breakdown of skin to the anterior left ankle stable with no sign of infection. Excisional debridement down to and including subcutaneous tissue with a number 3 mm dermal curette to the plantar aspect of the left hallux without incident. Predebridement measurement was callus. measurement is 0.6 x 0.2 x 0.2 cm. Musculoskeletal: No pain with palpation to the full-thickness wound or with range of motion to the left big toe joint. No pain with calf pressure Const alert, oriented x3 and no apparent distress Debridement Note Debridement Note Post-Debridement Measurements and Additional Note: Post-Debridement Measurements/Treatment WC - Nurse 1 - General Ulcer Assessment Start: 08/29/24 09:38 Freq: Status: Active Protocol: WC.LOWEXT Activity Type Activity Date Activity User E-sign Co-sign Detail Recorded Client Recorded Date Recorded By Document 08/29/24 09:39 GM [id number] 08/29/24 09:45 GM Document 09/05/24 09:57 KW [id number] 09/05/24 10:11 KW Document 09/12/24 08:03 KW [id number] 09/12/24 08:11 KW Document 09/19/24 10:49 KW [id number] 09/19/24 10:55 KW Document 09/26/24 12:49 DL [id number] 09/26/24 12:56 DL 08/29/24 09/05/24 09/12/24 09:39 09:57 08:03 WC - Today's Visit Information Type of service Follow-up Visit Follow-up Visit Follow-up Visit (Physician/AUTOMATION CONTROL INTEGRATOR (Physician/AUTOMATION CONTROL INTEGRATOR (Physician/AUTOMATION CONTROL INTEGRATOR ) ) ) Arrival Mode Ambulatory Ambulatory Ambulatory Transfer Assistance Patient Identification Verified (Name & Yes Yes Yes ) Patient Requires Transmission-Based Precautions Height and Weight Body Mass Index (BMI) 29.4 29.4 29.4 BMI Classification Overweight Overweight Overweight Vital Signs Temperature (97.8 F-99.1 F) 97.9 F 97.6 F L 96.7 F L Temperature Source Temporal Temporal Temporal Pulse Rate (60-100) 76 63 72 Pulse Location Monitor Monitor Monitor Respiratory Rate (12-18) 16 18 18 Respiratory rate source Observation Observation Observation Oxygen Delivery Method Room Air Room Air Room Air Blood Pressure (90/60-120/80) 150/89 H 126/83 H 124/72 H Blood Pressure Mean (mm Hg) 109 97 89 Source Monitor Monitor Monitor Position Sitting Semi-Fowlers Semi-Fowlers Blood Pressure Location Left Arm Left Arm Left Arm History Since Last Visit- (Skip if this is Patient's initial visit) Have you changed medications since your No No No last visit? Any new allergies or adverse reactions No No No Had a fall/change in ADL's that may No No No increase risk of falls Signs or symptoms of abuse and/or No No No neglect since last visit Have you been in the hospital since your No Yes No last visit? Has dressing in place as prescribed Yes Yes Yes Has compression in place as prescribed Yes Yes Yes Has offloadiing in place as prescribed Yes N/A Yes Experienced any changes in pain level or No No No management Left Footwear Surgical Shoe Surgical Shoe Surgical Shoe with pressure with pressure with pressure relief insole relief insole relief insole Right Footwear Regular Shoe Regular Shoe Regular Shoe Pain Scale: 0-10 Numeric Is Patient Pain Free? Yes Yes Yes 09/19/24 09/26/24 10:49 12:49 WC - Today's Visit Information Type of service Nurse-only Follow-up Visit Visit (Physician/AUTOMATION CONTROL INTEGRATOR ) Arrival Mode Ambulatory Ambulatory Transfer Assistance None Patient Identification Verified (Name & Yes Yes ) Patient Requires Transmission-Based No Precautions Height and Weight Body Mass Index (BMI) 29.4 29.4 BMI Classification Overweight Overweight Vital Signs Temperature (97.8 F-99.1 F) 98.4 F 97.7 F L Temperature Source Temporal Temporal Pulse Rate (60-100) 103 H 74 Pulse Location Monitor Monitor Respiratory Rate (12-18) 18 18 Respiratory rate source Observation Observation Oxygen Delivery Method Room Air Blood Pressure (90/60-120/80) 140/92 H 131/82 H Blood Pressure Mean (mm Hg) 108 98 Source Monitor Monitor Position Semi-Fowlers Blood Pressure Location Left Arm History Since Last Visit- (Skip if this is Patient's initial visit) Have you changed medications since your No No last visit? Any new allergies or adverse reactions No No Had a fall/change in ADL's that may No No increase risk of falls Signs or symptoms of abuse and/or No neglect since last visit Have you been in the hospital since your No No last visit? Has dressing in place as prescribed Yes Yes Has compression in place as prescribed Yes Yes Has offloadiing in place as prescribed Yes Yes Experienced any changes in pain level or No No management Left Footwear Surgical Shoe Surgical Shoe with pressure with pressure relief insole relief insole Right Footwear Regular Shoe Pain Scale: 0-10 Numeric Is Patient Pain Free? Yes Yes - Nurse 1 - General Ulcer Measurement Start: 08/29/24 09:38 Freq: Status: Active Protocol: Activity Type Activity Date Activity User E-sign Co-sign Detail Recorded Client Recorded Date Recorded By Document 08/29/24 09:39 GM [id number] 08/29/24 09:45 GM Document 09/05/24 09:57 KW [id number] 09/05/24 10:11 KW Document 09/12/24 08:03 KW [id number] 09/12/24 08:11 KW Document 09/26/24 12:49 DL [id number] 09/26/24 12:56 DL 08/29/24 09/05/24 09/12/24 09:39 09:57 08:03 Wound Center Nurse 1 #1 LT PLANTAR post op -Current Size (cm) - Length 0.6 1.6 0.1 -Current Size (cm) - Width 0.5 0.3 0.1 -Current Size (cm) - Depth 1.1 0.3 0.1 -Total Square Cm 0.30 0.48 0.01 -Date of Last Picture (Recall this 08/29/24 09/05/24 field) -Photo Taken Yes -Epithelialization None Present -Tunneling No -Undermining/Tunneling No -Circular Undermining No -Exudate Amt Small Medium Small -Exudate Type Yellow/Green Serosanguineous Serosanguineous -Wound Margin Distinct, Thickened Distinct, Outline Outline Attached Attached -Granulation Amt None Present (0 Large (67-100%) %) -Granulation Quality Tarrant -Slough/Fibrin No -Necrosis Amt Small (1-33%) -Necrotic Tissue Type Adherent Slough -Structure Exposed -Texture (Smiley-wound Skin Appearance) Assessed,Callus Assessed,Callus Assessed -Moisture (Smiley-wound Skin Appearance) Assessed, Assessed Assessed Maceration -Color (Smiley-wound Skin Appearance) Assessed, Assessed, Assessed, Erythema Erythema Erythema -Temperature (Smiley-wound Skin Hot No Abnormality No Abnormality Appearance) (Pt Warm) (Pt Warm) -Tenderness on Palpation (Smiley-wound No No Skin Appearance) -Ulcer Cleansing Rinsed/ Soap and Water Soap and Water Irrigated with Saline -Foul Odor after Cleansing No No No -Anesthetic Used 5% Lidocaine 5% Lidocaine Gel Gel -Wound Comment(s) steri strips intact Left Calf (cm) Left Ankle (cm) 09/26/24 12:49 Wound Center Nurse 1 #1 LT PLANTAR post op -Current Size (cm) - Length 0.1 -Current Size (cm) - Width 0.1 -Current Size (cm) - Depth 0.1 -Total Square Cm 0.01 -Date of Last Picture (Recall this field) -Photo Taken -Epithelialization -Tunneling -Undermining/Tunneling -Circular Undermining -Exudate Amt Small -Exudate Type -Wound Margin Indistinct, Non -Visible -Granulation Amt None Present (0 %) -Granulation Quality -Slough/Fibrin -Necrosis Amt Large (67-100%) -Necrotic Tissue Type Adherent Slough -Structure Exposed N/A -Texture (Smiley-wound Skin Appearance) Scarring -Moisture (Smiley-wound Skin Appearance) Dry/Scaly -Color (Smiley-wound Skin Appearance) No Abnormality -Temperature (Smiley-wound Skin No Abnormality Appearance) (Pt Warm) -Tenderness on Palpation (Smiley-wound No Skin Appearance) -Ulcer Cleansing Rinsed/ Irrigated with Saline -Foul Odor after Cleansing No -Anesthetic Used 4% Lidocaine Solution -Wound Comment(s) Left Calf (cm) 36.3 Left Ankle (cm) 21 WC - Nurse 2 - General Ulcer CM Notes Start: 08/29/24 09:38 Freq: Status: Active Protocol: Activity Type Activity Date Activity User E-sign Co-sign Detail Recorded Client Recorded Date Recorded By Document 08/29/24 10:07 [email or web address] 08/29/24 10:11 Document 09/05/24 10:26 [email or web address] 09/05/24 10:27 [email or web address] Document 09/12/24 08:23 [email or web address] 09/12/24 08:25 Document 09/26/24 13:06 [email or web address] 09/26/24 13:08 08/29/24 09/05/24 09/12/24 10:07 10:26 08:23 Wound Center Nurse 2 #1 LT PLANTAR post op -Time 10:10 -Correct Patient No No No -Correct Side, Site, Position No No No -Correct Procedure No No -Procedure Performed No No -Type of Procedure -Clinical Debridement -Tissue Removed -Post Debridement (cm) - Length 0.1 -Post Debridement (cm) - Width 0.1 -Post Debridement (cm) - Depth 0.1 -Total Square (Post) (cm) 0.01 -Area of Debridement (cm) - Length 0.1 -Area of Debridement (cm) - Width 0.1 -Total Square (Area) (cm) 0.01 -Tunneling -Undermining/Tunneling -Circular Undermining -Wound/Ulcer Outcome Not Healed Not Healed Not Healed -Ulcer Cleansing -Foul Odor after Cleansing -Bioengineered Tissue -Bleeding Controlled with Pressure NA -Treatment Response -Offloading Yes -Type of Offloading Surgical Shoe Surgical Shoe -Assistive Device(s) Crutches -Debridement - Subq, 1st 20sq cm No No -Wound Comment(s) told to go to Emergency room Pain Scale: 0-10 Numeric Is Patient Pain Free? Yes Yes Yes 09/26/24 13:06 Wound Center Nurse 2 #1 LT PLANTAR post op -Time 13:07 -Correct Patient Yes -Correct Side, Site, Position Yes -Correct Procedure Yes -Procedure Performed Yes -Type of Procedure Debridement -Clinical Debridement Subcutaneous -Tissue Removed Subcutaneous -Post Debridement (cm) - Length 0.6 -Post Debridement (cm) - Width 0.2 -Post Debridement (cm) - Depth 0.2 -Total Square (Post) (cm) 0.12 -Area of Debridement (cm) - Length 0.6 -Area of Debridement (cm) - Width 0.2 -Total Square (Area) (cm) 0.12 -Tunneling No -Undermining/Tunneling No -Circular Undermining No -Wound/Ulcer Outcome Not Healed -Ulcer Cleansing Rinsed/ Irrigated with Saline -Foul Odor after Cleansing No -Bioengineered Tissue No -Bleeding Controlled with Pressure -Treatment Response Procedure Tolerated Well -Offloading Yes -Type of Offloading Surgical Shoe -Assistive Device(s) -Debridement - Subq, 1st 20sq cm Yes -Wound Comment(s) Pain Scale: 0-10 Numeric Is Patient Pain Free? Yes WC - Nurse 3 - General Ulcer D/C NN Start: 08/29/24 09:38 Freq: Status: Active Protocol: Activity Type Activity Date Activity User E-sign Co-sign Detail Recorded Client Recorded Date Recorded By Document 08/29/24 10:11 JF [id number] 08/29/24 10:12 JF Document 09/05/24 10:48 JF [id number] 09/05/24 10:48 JF Document 09/12/24 09:23 JF 00 09/12/24 09:23 JF Document 09/19/24 10:49 KW [id number] 09/19/24 10:55 KW 08/29/24 09/05/24 09/12/24 10:11 10:48 09:23 Wound Care Center Nurse 3 #1 LT PLANTAR post op -Ulcer Cleansing Rinsed/ Rinsed/ Irrigated with Irrigated with Saline Saline -Foul Odor after Cleansing No No -Other Dressing betadine betadine adaptic -Primary Dressing Covered/Secured with Dry Gauze, Dry Gauze & Dry Gauze & Secured with Roll Gauze, Roll Gauze, Tape Secured with Secured with Tape Tape Left -Compression Wrap Jensen Wrap -Tubular Bandage Single Layer -Size of Tubigrip Used Size E -Size E ($) 1 Vital Signs Temperature (97.8 F-99.1 F) Temperature Source Pulse Rate (60-100) Pulse Location Respiratory Rate (12-18) Respiratory rate source Oxygen Delivery Method Blood Pressure (90/60-120/80) Blood Pressure Mean (mm Hg) Source Position Blood Pressure Location Pain Scale: 0-10 Numeric Is Patient Pain Free? Yes Yes Yes WC - Visit Discharge Discharge Condition Stable Stable Stable Ambulatory Status Ambulatory Ambulatory Ambulatory Transportation Private Auto Private Auto Private Auto Medication Reconcilliation completed & Yes Yes Yes provided to patient/care provider Clinical Summary of Care Provided Yes Yes Yes 09/19/24 10:49 Wound Care Center Nurse 3 #1 LT PLANTAR post op -Ulcer Cleansing Soap and Water -Foul Odor after Cleansing -Other Dressing betadine to incision -Primary Dressing Covered/Secured with Dry Gauze & Roll Gauze, Secured with Tape Left -Compression Wrap -Tubular Bandage Single Layer -Size of Tubigrip Used Size E -Size E ($) 1 Vital Signs Temperature (97.8 F-99.1 F) 98.4 F Temperature Source Temporal Pulse Rate (60-100) 103 H Pulse Location Monitor Respiratory Rate (12-18) 18 Respiratory rate source Observation Oxygen Delivery Method Room Air Blood Pressure (90/60-120/80) 140/92 H Blood Pressure Mean (mm Hg) 108 Source Monitor Position Semi-Fowlers Blood Pressure Location Left Arm Pain Scale: 0-10 Numeric Is Patient Pain Free? Yes WC - Visit Discharge Discharge Condition Stable Ambulatory Status Ambulatory Transportation Private Auto Medication Reconcilliation completed & No provided to patient/care provider Clinical Summary of Care Provided Yes Assessment/Plan Assessment/Plan (1) Non-pressure chronic ulcer of other part of left foot with fat layer exposed: CODE(S): L97.522 - Non-pressure chronic ulcer of other part of left foot with fat layer exposed PLAN: Patient was examined and evaluated. All findings were discussed with the patient. All questions were answered to the patient's satisfaction. Sutures were removed to the plantar aspect of the left foot. After removing the sutures there is evidence of a small full-thickness wound. Excisional debridement down to and including subcutaneous tissue with a number 3 mm dermal curette to the plantar aspect of the left hallux without incident. Predebridement measurement was callus. measurement is 0.6 x 0.2 x 0.2 cm. The full-thickness wound was wiped clean and patted dry. Steri-Strips applied. Betadine paint and Band-Aid was applied to the plantar aspect of the left hallux. To the breakdown of skin to the anterior left ankle Betadine paint and Band-Aid was applied. Educated the patient to follow-up with the harp maker to better help control his blood sugar. Educated the patient on the importance of maintaining a blood sugar between 100 to 150 mg/dL. He was understanding this. Follow-up at the wound care center with Dr. Archibald in 2 week, or call the wound care center with any concerns to follow-up with additional staff if needed.
== END 2024-09-27 23:59 | disposition home or self-care (01) ==
LOC: WC 13:00
PROVIDERS: PCP Student in an Organized Health Care Education/Training Program; Referring Provider Student in an Organized Health Care Education/Training Program; Visit Provider Podiatrist Foot & Ankle Surgery
DX: L97.523 Non-pressure chronic ulcer of other part of left foot with necrosis of muscle (principal); M86.9 Osteomyelitis, unspecified; L03.116 Cellulitis of left lower limb
CPT/HCPCS: G0463; 11042; 99212; 99213

== ENCOUNTER 2024-11-14 10:45 | Outpatient (RCR) | payer MEDICAID, SELFPAY ==
[2024-10-31 10:47] VITALS: BP 157/82; PULSE 87; RESP 18; TEMP 36.8
--- NOTE | 2024-10-31 11:47 | PN.PCM_ITS ---
History of Present Illness Date of Service: 10/31/24 Chief Complaint: Left foot wound History of Wound: Mr. Jefferson is a 49-year-old diabetic male presenting with care center today for follow-up evaluation of full-thickness wound to the plantar aspect of the left hallux. Patient received his MRI results last week. He is also here to evaluate the full-thickness wound. He had a TCC in place. Subjective Subjective Mr. Hoff is a 49-year-old diabetic male presented wound care center today for follow-up evaluation of full-thickness wound to the plantar aspect of the left foot hallux. Patient does state he has a new wound on the inside of his great toe secondary to the gauze and dressing changes. Patient has been in and out of the hospital due to upper respiratory infection and thrush. Patient has missed a couple follow-up appointments at the wound care center. His blood sugar has been up and down according to him. He denies trauma. Denies constitutional symptoms. No other pedal complaints at this time. Objective Data Objective Data Vital Signs: Vital Signs Temp Pulse Resp BP 98.3 F 87 18 157/82 H 10/31/24 10:47 10/31/24 10:47 10/31/24 10:47 10/31/24 10:47 Physical Exam Narrative Vascular: DP and PT pulse are palpable. CFT is brisk. Blanchable erythema appreciated to dorsal aspect of the left foot. Skin temp great is warm to warm from proximal ankles to distal digit with increased focal warmth to the left foot. Neurological: Patient does not respond to painful stimuli. Protective station is absent. Dermatological: Full-thickness ulceration to the plantar aspect of the hallux is now healed. New full-thickness wound to the first webspace on the lateral aspect of the hallux measuring 0.5 x 0.4 x 0.2 cm. Wound base is fibrogranular nature. There is evidence of abrasion across the dorsal hallux and ankle that are stable. Negative probe to bone to the new full-thickness wound. Malodor is appreciated. Excisional debridement down to including subcutaneous tissue with a number 3 mm dermal curette to the left hallux lateral aspect of full-thickness ulceration without incident. Predebridement measurement was 0.3 x 0.3 x 0.1 cm. Postdebridement measurement is 0.5 x 0.4 x 0.3 cm. Musculoskeletal: Muscle strength is 5 and 5 in all quadrants left lower extremity. No pain on palpation to full-thickness wound on the left foot. No pain with calf pressure. Debridement Note Debridement Note Debridement Free Text: Excisional debridement down to including subcutaneous tissue with a number 3 mm dermal curette to the left hallux lateral aspect of full-thickness ulceration without incident. Predebridement measurement was 0.3 x 0.3 x 0.1 cm. Postdebridement measurement is 0.5 x 0.4 x 0.3 cm. Post-Debridement Measurements and Additional Note: Post-Debridement Measurements/Treatment WC - Nurse 1 - General Ulcer Assessment Start: 10/31/24 10:46 Freq: Status: Active Protocol: CHARMAINE Activity Type Activity Date Activity User E-sign Co-sign Detail Recorded Client Recorded Date Recorded By Document 10/31/24 10:47 DL [id number] 10/31/24 10:57 DL 10/31/24 10:47 WC - Today's Visit Information Type of service Follow-up Visit (Physician/PASSPORT APPLICATION EXAMINER ) Arrival Mode Ambulatory Transfer Assistance None Patient Identification Verified (Name & Yes ) Patient Requires Transmission-Based No Precautions Vital Signs Temperature (97.8 F-99.1 F) 98.3 F Temperature Source Temporal Pulse Rate (60-100) 87 Pulse Location Monitor Respiratory Rate (12-18) 18 Respiratory rate source Observation Blood Pressure (90/60-120/80) 157/82 H Blood Pressure Mean (mm Hg) 107 Source Monitor History Since Last Visit- (Skip if this is Patient's initial visit) Have you changed medications since your No last visit? Any new allergies or adverse reactions No Had a fall/change in ADL's that may No increase risk of falls Signs or symptoms of abuse and/or No neglect since last visit Have you been in the hospital since your Yes last visit? Has dressing in place as prescribed Yes Has compression in place as prescribed Yes Has offloadiing in place as prescribed Yes Experienced any changes in pain level or No management Pain Scale: 0-10 Numeric Is Patient Pain Free? Yes - Nurse 1 - General Ulcer Measurement Start: 10/31/24 10:46 Freq: Status: Active Protocol: Activity Type Activity Date Activity User E-sign Co-sign Detail Recorded Client Recorded Date Recorded By Document 12/04/24 10:47 DL [id number] 10/31/24 10:57 DL 10/31/24 10:47 Wound Center Nurse 1 #1 LT PLANTAR post op -Current Size (cm) - Length 0.1 -Current Size (cm) - Width 0.1 -Current Size (cm) - Depth 0.1 -Total Square Cm 0.01 -Photo Taken Yes -Exudate Amt None Present -Wound Margin Thickened -Granulation Amt None Present (0 %) -Necrosis Amt Small (1-33%) -Necrotic Tissue Type Eschar -Structure Exposed N/A -Texture (Smiley-wound Skin Appearance) Scarring -Moisture (Smiley-wound Skin Appearance) Dry/Scaly -Color (Smiley-wound Skin Appearance) No Abnormality -Temperature (Smiley-wound Skin No Abnormality Appearance) (Pt Warm) -Ulcer Cleansing Soap and Water -Foul Odor after Cleansing No -Anesthetic Used 5% Lidocaine Gel #3 L Ant Ankle -Current Size (cm) - Length 0.4 -Current Size (cm) - Width 0.4 -Current Size (cm) - Depth 0.1 -Total Square Cm 0.16 -Photo Taken Yes -Exudate Amt None Present -Wound Margin Distinct, Outline Attached -Granulation Amt Small (1-33%) -Granulation Quality [place] -Necrosis Amt Small (1-33%) -Necrotic Tissue Type Adherent Slough -Structure Exposed N/A -Texture (Smiley-wound Skin Appearance) Excoriation, Scarring -Moisture (Smiley-wound Skin Appearance) Weeping,Dry/ Scaly -Color (Smiley-wound Skin Appearance) No Abnormality -Temperature (Smiley-wound Skin No Abnormality Appearance) (Pt Warm) -Ulcer Cleansing Soap and Water -Foul Odor after Cleansing No -Anesthetic Used 5% Lidocaine Gel #2 LGreat toe dorsal -Current Size (cm) - Length 2.4 -Current Size (cm) - Width 2.6 -Current Size (cm) - Depth 0.1 -Total Square Cm 6.24 -Photo Taken Yes -Exudate Amt Medium -Exudate Type Serosanguineous -Wound Margin Distinct, Outline Attached -Granulation Amt Large (67-100%) -Granulation Quality [place] -Necrosis Amt Small (1-33%) -Necrotic Tissue Type Adherent Slough -Structure Exposed N/A -Texture (Smiley-wound Skin Appearance) Scarring -Moisture (Smiley-wound Skin Appearance) Weeping -Color (Smiley-wound Skin Appearance) No Abnormality -Temperature (Smiley-wound Skin No Abnormality Appearance) (Pt Warm) -Tenderness on Palpation (Smiley-wound No Skin Appearance) -Ulcer Cleansing Soap and Water -Foul Odor after Cleansing No -Anesthetic Used 5% Lidocaine Gel Left Calf (cm) 33.7 Left Ankle (cm) 21 WC - Nurse 2 - General Ulcer CM Notes Start: 10/31/24 10:46 Freq: Status: Active Protocol: Activity Type Activity Date Activity User E-sign Co-sign Detail Recorded Client Recorded Date Recorded By Document 10/31/24 11:09 DANIEL [id number] 10/31/24 11:13 DANIEL 10/31/24 11:09 Wound Center Nurse 2 #1 LT PLANTAR post op -Procedure Performed No -Post Debridement (cm) - Length 0 -Post Debridement (cm) - Width 0 -Post Debridement (cm) - Depth 0 -Total Square (Post) (cm) 0 -Area of Debridement (cm) - Length 0 -Area of Debridement (cm) - Width 0 -Total Square (Area) (cm) 0 -Wound/Ulcer Outcome Healed- Epithelialized #3 L Ant Ankle -Procedure Performed No -Wound/Ulcer Outcome Not Healed #2 LGreat toe dorsal -Time 11:12 -Correct Patient Yes -Correct Side, Site, Position Yes -Correct Procedure Yes -Procedure Performed Yes -Type of Procedure Debridement -Clinical Debridement Subcutaneous -Tissue Removed Subcutaneous -Post Debridement (cm) - Length 0.5 -Post Debridement (cm) - Width 0.4 -Post Debridement (cm) - Depth 0.2 -Total Square (Post) (cm) 0.20 -Area of Debridement (cm) - Length 0.5 -Area of Debridement (cm) - Width 0.4 -Total Square (Area) (cm) 0.20 -Undermining/Tunneling No -Circular Undermining No -Wound/Ulcer Outcome Not Healed -Ulcer Cleansing Rinsed/ Irrigated with Saline -Foul Odor after Cleansing No -Bioengineered Tissue No -Bleeding Controlled with Pressure -Treatment Response Procedure Tolerated Well -Offloading No -Debridement - Subq, 1st 20sq cm Yes Pain Scale: 0-10 Numeric Is Patient Pain Free? Yes SHERRI - Nurse 3 - General Ulcer D/C NN Start: 12/04/24 10:46 Freq: Status: Active Protocol: Activity Type Activity Date Activity User E-sign Co-sign Detail Recorded Client Recorded Date Recorded By Document 10/31/24 11:27 MIGEL [id number] 10/31/24 11:28 MIGEL 10/31/24 11:27 Wound Care Center Nurse 3 #3 L Ant Ankle -Other Dressing betadine -Primary Dressing Covered/Secured with Dry Gauze & Roll Gauze, Secured with Tape #2 LGreat toe dorsal -Other Dressing betadine -Primary Dressing Covered/Secured with Dry Gauze Left -Tubular Bandage Single Layer -Size of Tubigrip Used Size E -Size E ($) 1 Pain Scale: 0-10 Numeric Is Patient Pain Free? Yes WC - Visit Discharge Discharge Condition Stable Ambulatory Status Ambulatory Transportation Private Auto Medication Reconcilliation completed & No provided to patient/care provider Clinical Summary of Care Provided Yes Assessment/Plan Assessment/Plan (1) Non-pressure chronic ulcer of other part of left foot with fat layer exposed: CODE(S): L97.522 - Non-pressure chronic ulcer of other part of left foot with fat layer exposed PLAN: Patient was examined and evaluated. All findings were discussed with the patient. All questions were answered to the patient's satisfaction. Excisional debridement down to including subcutaneous tissue with a number 3 mm dermal curette to the left hallux lateral aspect of full-thickness ulceration without incident. Predebridement measurement was 0.3 x 0.3 x 0.1 cm. Postdebridement measurement is 0.5 x 0.4 x 0.3 cm. The full-thickness wound was flushed with normal saline. Culture was taken. The area was dressed with Betadine paint dry sterile dressing and Tubigrip. Educated the patient that he may need to change his dressing 2 times per day and make sure that he checks his feet more than 2 times per day be due to his neuropathy. Patient will be placed on Augmentin 875 twice daily for 2 weeks. Antibiotics will be readjusted when culture and sensitivity returns. Follow-up at the wound care center with Dr. Archibald in 1 week.
--- NOTE | 2024-11-02 11:42 | WC ---
PHOTO 10/31/24 LEFT DORSAL GREAT TOE
[2024-11-07 11:22] VITALS: BP 123/85; PULSE 93; RESP 18; TEMP 36.2
--- NOTE | 2024-11-07 13:40 | PN.PCM_ITS ---
History of Present Illness Date of Service: 11/07/24 Chief Complaint: Left foot wound History of Wound: Mr. Jefferson is a 49-year-old diabetic male presenting with care center today for follow-up evaluation of full-thickness wound to the plantar aspect of the left hallux. Patient received his MRI results last week. He is also here to evaluate the full-thickness wound. He had a TCC in place. Subjective Subjective Mr. Hoff is a 43-year-old diabetic male presented wound care center today for follow-up evaluation of left hallux full-thickness wound. Patient did not get his antibiotics due to not having the money to afford the antibiotics from the pharmacy. Patient thought he has Medicaid but does not have any insurance at this time and will be calling the Medicaid office to get reenrolled. He also admits to an infection to the right index finger and is unsure how it happened. Denies trauma. Denies constitutional symptoms. Other pedal complaints at this time. Objective Data Objective Data Vital Signs: Vital Signs Temp Pulse Resp BP O2 Del Method 97.1 F L 93 18 123/85 H Room Air 11/07/24 11:22 11/07/24 11:22 11/07/24 11:22 11/07/24 11:22 11/07/24 11:22 Oxygen Delivery Method Room Air Lab / Micro Data Micro: Microbiology 10/31/24 12:58 Ulcer, Decubitus - Left Foot Gram Stain - Final 10/31/24 12:58 Ulcer, Decubitus - Left Foot Wound Culture - Final Streptococcus group A Staphylococcus epidermidis 10/31/24 12:58 Ulcer, Decubitus - Left Foot Anaerobic Culture - Final Anaerobic cocci Physical Exam Narrative Vascular: DP and PT pulse are palpable. CFT is brisk. Blanchable erythema appreciated to dorsal aspect of the left foot. Skin temp great is warm to warm from proximal ankles to distal digit with increased focal warmth to the left foot. Neurological: Patient does not respond to painful stimuli. Protective station is absent. Dermatological: Full-thickness wound to the first webspace on the lateral aspect of the hallux measuring 2.0 x 0.7 x 0.2 cm. Wound base is fibrogranular nature. There is evidence of abrasion across the dorsal hallux and ankle that are sta ble. Negative probe to bone to the new full-thickness wound. Malodor is appreciated. Excisional debridement down to including subcutaneous tissue with a number 3 mm dermal curette to the left hallux lateral aspect of full-thickness ulceration without incident. Predebridement measurement was 1.8 x 0.5 x 0.1 cm. Postdebridement measurement is 2.0 x 0.7 x 0.2 cm. Musculoskeletal: Muscle strength is 5 and 5 in all quadrants left lower extremity. No pain on palpation to full-thickness wound on the left foot. No pain with calf pressure. Debridement Note Debridement Note Debridement Free Text: Excisional debridement down to including subcutaneous tissue with a number 3 mm dermal curette to the left hallux lateral aspect of full-thickness ulceration without incident. Predebridement measurement was 1.8 x 0.5 x 0.1 cm. Postdebridement measurement is 2.0 x 0.7 x 0.2 cm. Post-Debridement Measurements and Additional Note: Post-Debridement Measurements/Treatment - Nurse 1 - General Ulcer Assessment Start: 10/31/24 10:46 Freq: Status: Active Protocol: CHARMAINE Activity Type Activity Date Activity User E-sign Co-sign Detail Recorded Client Recorded Date Recorded By Document 10/31/24 10:47 DL [id number] 10/31/24 10:57 DL Document 11/07/24 11:22 KW [id number] 11/07/24 11:37 KW 10/31/24 11/07/24 10:47 11:22 - Today's Visit Information Type of service Follow-up Visit Follow-up Visit (Physician/RN OUTPATIENT SURGERY (Physician/RN OUTPATIENT SURGERY ) ) Arrival Mode Ambulatory Ambulatory Transfer Assistance None Patient Identification Verified (Name & Yes Yes ) Patient Requires Transmission-Based No Precautions Vital Signs Temperature (97.8 F-99.1 F) 98.3 F 97.1 F L Temperature Source Temporal Temporal Pulse Rate (60-100) 87 93 Pulse Location Monitor Monitor Respiratory Rate (12-18) 18 18 Respiratory rate source Observation Observation Oxygen Delivery Method Room Air Blood Pressure (90/60-120/80) 157/82 H 123/85 H Blood Pressure Mean (mm Hg) 107 97 Source Monitor Monitor Position Semi-Fowlers Blood Pressure Location Left Arm History Since Last Visit- (Skip if this is Patient's initial visit) Have you changed medications since your No No last visit? Any new allergies or adverse reactions No No Had a fall/change in ADL's that may No No increase risk of falls Signs or symptoms of abuse and/or No No neglect since last visit Have you been in the hospital since your Yes No last visit? Has dressing in place as prescribed Yes Yes Has compression in place as prescribed Yes Yes Has offloadiing in place as prescribed Yes Yes Experienced any changes in pain level or No No management Left Footwear Surgical Shoe with pressure relief insole Right Footwear Regular Shoe Pain Scale: 0-10 Numeric Is Patient Pain Free? Yes Yes WC - Nurse 1 - General Ulcer Measurement Start: 10/31/24 10:46 Freq: Status: Active Protocol: Activity Type Activity Date Activity User E-sign Co-sign Detail Recorded Client Recorded Date Recorded By Document 10/31/24 10:47 DL [id number] 10/31/24 10:57 DL Document 11/07/24 11:22 KW [id number] 11/07/24 11:37 KW 10/31/24 11/07/24 10:47 11:22 Wound Center Nurse 1 #1 LT PLANTAR post op -Current Size (cm) - Length 0.1 -Current Size (cm) - Width 0.1 -Current Size (cm) - Depth 0.1 -Total Square Cm 0.01 -Photo Taken Yes -Exudate Amt None Present -Wound Margin Thickened -Granulation Amt None Present (0 %) -Necrosis Amt Small (1-33%) -Necrotic Tissue Type Eschar -Structure Exposed N/A -Texture (Smiley-wound Skin Appearance) Scarring -Moisture (Smiley-wound Skin Appearance) Dry/Scaly -Color (Smiley-wound Skin Appearance) No Abnormality -Temperature (Smiley-wound Skin No Abnormality Appearance) (Pt Warm) -Ulcer Cleansing Soap and Water -Foul Odor after Cleansing No -Anesthetic Used 5% Lidocaine Gel #3 L Ant Ankle -Current Size (cm) - Length 0.4 0.1 -Current Size (cm) - Width 0.4 0.1 -Current Size (cm) - Depth 0.1 0.1 -Total Square Cm 0.16 0.01 -Date of Last Picture (Recall this 11/07/24 field) -Photo Taken Yes -Exudate Amt None Present Small -Exudate Type Serosanguineous -Wound Margin Distinct, Distinct, Outline Outline Attached Attached -Granulation Amt Small (1-33%) Large (67-100%) -Granulation Quality [place] Red -Necrosis Amt Small (1-33%) -Necrotic Tissue Type Adherent Slough -Structure Exposed N/A -Texture (Smiley-wound Skin Appearance) Excoriation, Assessed Scarring -Moisture (Smiley-wound Skin Appearance) Weeping,Dry/ Assessed Scaly -Color (Smiley-wound Skin Appearance) No Abnormality Assessed -Temperature (Smiley-wound Skin No Abnormality No Abnormality Appearance) (Pt Warm) (Pt Warm) -Tenderness on Palpation (Smiley-wound No Skin Appearance) -Ulcer Cleansing Soap and Water Soap and Water -Foul Odor after Cleansing No No -Anesthetic Used 5% Lidocaine 5% Lidocaine Gel Gel -Wound Comment(s) did not measure #2 LGreat toe dorsal -Current Size (cm) - Length 2.4 0.1 -Current Size (cm) - Width 2.6 0.1 -Current Size (cm) - Depth 0.1 0.1 -Total Square Cm 6.24 0.01 -Date of Last Picture (Recall this 11/07/24 field) -Photo Taken Yes -Exudate Amt Medium Small -Exudate Type Serosanguineous Serosanguineous -Wound Margin Distinct, Distinct, Outline Outline Attached Attached -Granulation Amt Large (67-100%) Large (67-100%) -Granulation Quality [place] Red -Necrosis Amt Small (1-33%) Small (1-33%) -Necrotic Tissue Type Adherent Slough Adherent Slough -Structure Exposed N/A -Texture (Smiley-wound Skin Appearance) Scarring Assessed -Moisture (Smiley-wound Skin Appearance) Weeping Assessed -Color (Smliey-wound Skin Appearance) No Abnormality Assessed, Erythema -Temperature (Smiley-wound Skin No Abnormality No Abnormality Appearance) (Pt Warm) (Pt Warm) -Tenderness on Palpation (Smiley-wound No No Skin Appearance) -Ulcer Cleansing Soap and Water Soap and Water -Foul Odor after Cleansing No No -Anesthetic Used 5% Lidocaine 5% Lidocaine Gel Gel -Wound Comment(s) did not measure Left Calf (cm) 33.7 Left Ankle (cm) 21 WC - Nurse 2 - General Ulcer CM Notes Start: 10/31/24 10:46 Freq: Status: Active Protocol: Activity Type Activity Date Activity User E-sign Co-sign Detail Recorded Client Recorded Date Recorded By Document 12/04/24 11:09 JF [id number] 10/31/24 11:13 Document 11/07/24 11:51 JF [id number] 11/07/24 11:52 10/31/24 11/07/24 11:09 11:51 Wound Center Nurse 2 #1 LT PLANTAR post op -Procedure Performed No -Post Debridement (cm) - Length 0 -Post Debridement (cm) - Width 0 -Post Debridement (cm) - Depth 0 -Total Square (Post) (cm) 0 -Area of Debridement (cm) - Length 0 -Area of Debridement (cm) - Width 0 -Total Square (Area) (cm) 0 -Wound/Ulcer Outcome Healed- Epithelialized #3 L Ant Ankle -Correct Patient No -Correct Side, Site, Position No -Correct Procedure No -Procedure Performed No No -Wound/Ulcer Outcome Not Healed Not Healed #2 LGreat toe dorsal -Time 11:12 11:51 -Correct Patient Yes Yes -Correct Side, Site, Position Yes Yes -Correct Procedure Yes Yes -Procedure Performed Yes Yes -Type of Procedure Debridement Debridement -Clinical Debridement Subcutaneous Subcutaneous -Tissue Removed Subcutaneous Subcutaneous -Post Debridement (cm) - Length 0.5 2.0 -Post Debridement (cm) - Width 0.4 0.7 -Post Debridement (cm) - Depth 0.2 0.1 -Total Square (Post) (cm) 0.20 1.40 -Area of Debridement (cm) - Length 0.5 2.0 -Area of Debridement (cm) - Width 0.4 0.7 -Total Square (Area) (cm) 0.20 1.40 -Tunneling No -Undermining/Tunneling No No -Circular Undermining No No -Wound/Ulcer Outcome Not Healed Not Healed -Ulcer Cleansing Rinsed/ Rinsed/ Irrigated with Irrigated with Saline Saline -Foul Odor after Cleansing No No -Bioengineered Tissue No No -Bleeding Controlled with Pressure Pressure -Treatment Response Procedure Procedure Tolerated Well Tolerated Well -Offloading No No -Debridement - Subq, 1st 20sq cm Yes Yes Pain Scale: 0-10 Numeric Is Patient Pain Free? Yes Yes WC - Nurse 3 - General Ulcer D/C NN Start: 10/31/24 10:46 Freq: Status: Active Protocol: Activity Type Activity Date Activity User E-sign Co-sign Detail Recorded Client Recorded Date Recorded By Document 10/31/24 11:27 KW [id number] 10/31/24 11:28 KW Document 11/07/24 12:00 CP [id number] 11/07/24 12:15 CP 10/31/24 11/07/24 11:27 12:00 Wound Care Center Nurse 3 #3 L Ant Ankle -Ulcer Cleansing Rinsed/ Irrigated with Saline -Other Dressing betadine -Primary Dressing Covered/Secured with Dry Gauze & Roll Gauze, Secured with Tape -Wound Comment(s) ant oint. dry gauze roll gauze, tape #2 LGreat toe dorsal -Other Dressing betadine -Primary Dressing Covered/Secured with Dry Gauze Dry Gauze & Roll Gauze, Secured with Tape -Wound Comment(s) betadine Left -Tubular Bandage Single Layer Single Layer -Size of Tubigrip Used Size E Size D -Size D ($) 1 -Size E ($) 1 Pain Scale: 0-10 Numeric Is Patient Pain Free? Yes Yes WC - Visit Discharge Discharge Condition Stable Stable Ambulatory Status Ambulatory Ambulatory Transportation Private Auto Private Auto Medication Reconcilliation completed & No No provided to patient/care provider Clinical Summary of Care Provided Yes Yes Assessment/Plan Assessment/Plan (1) Non-pressure chronic ulcer of other part of left foot with fat layer exposed: CODE(S): L97.522 - Non-pressure chronic ulcer of other part of left foot with fat layer exposed PLAN: Patient was examined and evaluated. All findings were discussed with the patient. All questions were answered to the patient's satisfaction. Excisional debridement down to including subcutaneous tissue with a number 3 mm dermal curette to the left hallux lateral aspect of full-thickness ulceration without incident. Predebridement measurement was 1.8 x 0.5 x 0.1 cm. Postdebridement measurement is 2.0 x 0.7 x 0.2 cm. The full-thickness wound was flushed with normal saline. Full-thickness wounds were dressed with Betadine paint and dry sterile dressing and compression wrap. The index finger to the right hand was dressed with triple antibiotic and sterile gauze. Patient will be placed on Bactrim DS twice daily for 2 weeks based on culture and sensitivity. Educated the patient continue strict blood sugar control. Patient has been having episodes of elevated blood sugar and is currently noncompliant with treatment. Follow-up at the wound care center with Dr. Archibald in 1 week.
--- NOTE | 2024-11-07 15:52 | WC ---
Patient received a call from the [facility] financial office regarding getting NAVEED reinstated since patient currently has no insurance. She will help this patient out. His pharmacy from [facility] sent him a notice that his ATB is ready that was prescribed by Dr Archibald. Patient states his dad gets off work at 5pm today and will be asking him to borrow the zegn to pay for it which is $16. I told him to call us tomorrow to let us know either way because Dr Archibald will want him on a ATB in hopes to avoid any infection or hospitalization. Patient verbalized understanding to call us in the am.
--- NOTE | 2024-11-08 08:58 | WC ---
PHOTO 11/07/24 LEFT ANTERIOR ANKLE
--- NOTE | 2024-11-08 09:01 | WC ---
PHOTO 11/07/24 LEFT GREAT DORSAL TOE
[2024-11-14 10:20] VITALS: BP 140/80; PULSE 92; RESP 18; TEMP 36.3
--- NOTE | 2024-11-14 11:44 | PN.PCM_ITS ---
History of Present Illness Date of Service: 11/14/24 Chief Complaint: Left foot wound History of Wound: Mr. Jefferson is a 49-year-old diabetic male presenting with care center today for follow-up evaluation of full-thickness wound to the plantar aspect of the left hallux. Patient received his MRI results last week. He is also here to evaluate the full-thickness wound. He had a TCC in place. Subjective Subjective Mr. Hoff is a 49-year-old diabetic male presenting to wound care center today for follow-up evaluation of left hallux full-thickness ulceration. Patient has been compliant with daily dressing changes with Betadine paint and sterile Band- Aid. He did get his new Medicaid insurance and has been taking his antibiotic for the past 4 days. He admits to great improvement to his wound and skin color. He states that his ankle wound is now healed. He denies any new onset of trauma. Denies constitutional symptoms. No other pedal complaints at this time. Objective Data Objective Data Vital Signs: Vital Signs Temp Pulse Resp BP O2 Del Method 97.4 F L 92 18 140/80 H Room Air 11/14/24 10:20 11/14/24 10:20 11/14/24 10:20 11/14/24 10:20 11/14/24 10:20 Oxygen Delivery Method Room Air Lab / Micro Data Micro: Microbiology 10/31/24 12:58 Ulcer, Decubitus - Left Foot Gram Stain - Final 10/31/24 12:58 Ulcer, Decubitus - Left Foot Wound Culture - Final Streptococcus group A Staphylococcus epidermidis 10/31/24 12:58 Ulcer, Decubitus - Left Foot Anaerobic Culture - Final Anaerobic cocci Physical Exam Narrative Vascular: DP and PT pulse are palpable. CFT is brisk. Blanchable erythema appreciated to dorsal aspect of the left foot. Skin temp great is warm to warm from proximal ankles to distal digit with increased focal warmth to the left foot. Neurological: Patient does not respond to painful stimuli. Protective station is absent. Dermatological: Full-thickness wound to anterior left ankle is now healed. Full-thickness wound to the left hallux measures 1.0 x 0.3 x 0.1 cm. Wound base is granular. The erythema is improving. Excisional debridement down to including subcutaneous tissue with a number 3 mm dermal curette to the left hallux lateral aspect of full-thickness ulceration without incident. Predebridement measurement was 0.8 x 0.2 x 0.1 cm. Postdebridement measurement is 1.0 x 0.3 x 0.1 cm. Musculoskeletal: Muscle strength is 5 and 5 in all quadrants left lower extremity. No pain on palpation to full-thickness wound on the left foot. No pain with calf pressure. Debridement Note Debridement Note Debridement Free Text: Excisional debridement down to including subcutaneous tissue with a number 3 mm dermal curette to the left hallux lateral aspect of full-thickness ulceration without incident. Predebridement measurement was 0.8 x 0.2 x 0.1 cm. Postdebridement measurement is 1.0 x 0.3 x 0.1 cm. Post-Debridement Measurements and Additional Note: Post-Debridement Measurements/Treatment - Nurse 1 - General Ulcer Assessment Start: 10/31/24 10:46 Freq: Status: Active Protocol: WC.LOWEXT Activity Type Activity Date Activity User E-sign Co-sign Detail Recorded Client Recorded Date Recorded By Document 10/31/24 10:47 DL [id number] 10/31/24 10:57 DL Document 11/07/24 11:22 KW [id number] 11/07/24 11:37 KW Document 11/14/24 10:20 KW [id number] 11/14/24 10:29 KW 10/31/24 11/07/24 11/14/24 10:47 11:22 10:20 - Today's Visit Information Type of service Follow-up Visit Follow-up Visit Follow-up Visit (Physician/MUSIC SUPERVISOR (Physician/MUSIC SUPERVISOR (Physician/MUSIC SUPERVISOR ) ) ) Arrival Mode Ambulatory Ambulatory Ambulatory Transfer Assistance None Patient Identification Verified (Name & Yes Yes Yes ) Patient Requires Transmission-Based No Precautions Vital Signs Temperature (97.8 F-99.1 F) 98.3 F 97.1 F L 97.4 F L Temperature Source Temporal Temporal Temporal Pulse Rate (60-100) 87 93 92 Pulse Location Monitor Monitor Monitor Respiratory Rate (12-18) 18 18 18 Respiratory rate source Observation Observation Observation Oxygen Delivery Method Room Air Room Air Blood Pressure (90/60-120/80) 157/82 H 123/85 H 140/80 H Blood Pressure Mean (mm Hg) 107 97 100 Source Monitor Monitor Monitor Position Semi-Fowlers Semi-Fowlers Blood Pressure Location Left Arm Left Arm History Since Last Visit- (Skip if this is Patient's initial visit) Have you changed medications since your No No No last visit? Any new allergies or adverse reactions No No No Had a fall/change in ADL's that may No No No increase risk of falls Signs or symptoms of abuse and/or No No No neglect since last visit Have you been in the hospital since your Yes No No last visit? Has dressing in place as prescribed Yes Yes Yes Has compression in place as prescribed Yes Yes Yes Has offloadiing in place as prescribed Yes Yes Yes Experienced any changes in pain level or No No No management Left Footwear Surgical Shoe Surgical Shoe with pressure with pressure relief insole relief insole Right Footwear Regular Shoe Regular Shoe Pain Scale: 0-10 Numeric Is Patient Pain Free? Yes Yes Yes WC - Nurse 1 - General Ulcer Measurement Start: 10/31/24 10:46 Freq: Status: Active Protocol: Activity Type Activity Date Activity User E-sign Co-sign Detail Recorded Client Recorded Date Recorded By Document 10/31/24 10:47 DL [id number] 10/31/24 10:57 DL Document 11/07/24 11:22 KW [id number] 11/07/24 11:37 KW Document 11/14/24 10:20 KW [id number] 11/14/24 10:29 KW 10/31/24 11/07/24 11/14/24 10:47 11:22 10:20 Wound Center Nurse 1 #3 L Ant Ankle -Current Size (cm) - Length 0.4 0.1 0.1 -Current Size (cm) - Width 0.4 0.1 0.1 -Current Size (cm) - Depth 0.1 0.1 0.1 -Total Square Cm 0.16 0.01 0.01 -Date of Last Picture (Recall this 11/07/24 11/14/24 field) -Photo Taken Yes -Epithelialization Large 67-100% -Exudate Amt None Present Small None Present -Exudate Type Serosanguineous -Wound Margin Distinct, Distinct, Outline Outline Attached Attached -Granulation Amt Small (1-33%) Large (67-100%) None Present (0 %) -Granulation Quality [place] Red -Necrosis Amt Small (1-33%) -Necrotic Tissue Type Adherent Slough -Structure Exposed N/A -Texture (Smiley-wound Skin Appearance) Excoriation, Assessed Assessed Scarring -Moisture (Smiley-wound Skin Appearance) Weeping,Dry/ Assessed Assessed,Dry/ Scaly Scaly -Color (Smiley-wound Skin Appearance) No Abnormality Assessed Assessed -Temperature (Smiley-wound Skin No Abnormality No Abnormality No Abnormality Appearance) (Pt Warm) (Pt Warm) (Pt Warm) -Tenderness on Palpation (Smiley-wound No No Skin Appearance) -Ulcer Cleansing Soap and Water Soap and Water Soap and Water -Foul Odor after Cleansing No No No -Anesthetic Used 5% Lidocaine 5% Lidocaine Gel Gel -Wound Comment(s) did not measure #1 LT PLANTAR post op -Current Size (cm) - Length 0.1 -Current Size (cm) - Width 0.1 -Current Size (cm) - Depth 0.1 -Total Square Cm 0.01 -Photo Taken Yes -Exudate Amt None Present -Wound Margin Thickened -Granulation Amt None Present (0 %) -Necrosis Amt Small (1-33%) -Necrotic Tissue Type Eschar -Structure Exposed N/A -Texture (Smiley-wound Skin Appearance) Scarring -Moisture (Smiley-wound Skin Appearance) Dry/Scaly -Color (Smiley-wound Skin Appearance) No Abnormality -Temperature (Smiley-wound Skin No Abnormality Appearance) (Pt Warm) -Ulcer Cleansing Soap and Water -Foul Odor after Cleansing No -Anesthetic Used 5% Lidocaine Gel #2 LGreat toe dorsal -Current Size (cm) - Length 2.4 0.1 0.1 -Current Size (cm) - Width 2.6 0.1 0.1 -Current Size (cm) - Depth 0.1 0.1 0 -Total Square Cm 6.24 0.01 0.01 -Date of Last Picture (Recall this 11/07/24 11/14/24 field) -Photo Taken Yes -Epithelialization Medium 34-66% -Exudate Amt Medium Small Small -Exudate Type Serosanguineous Serosanguineous Serosanguineous -Wound Margin Distinct, Distinct, Distinct, Outline Outline Outline Attached Attached Attached -Granulation Amt Large (67-100%) Large (67-100%) Large (67-100%) -Granulation Quality [place] Red Red -Necrosis Amt Small (1-33%) Small (1-33%) Small (1-33%) -Necrotic Tissue Type Adherent Slough Adherent Slough Adherent Slough -Structure Exposed N/A -Texture (Smiley-wound Skin Appearance) Scarring Assessed Assessed -Moisture (Smiley-wound Skin Appearance) Weeping Assessed Assessed,Dry/ Scaly -Color (Smiley-wound Skin Appearance) No Abnormality Assessed, Assessed, Erythema Erythema -Temperature (Smiley-wound Skin No Abnormality No Abnormality No Abnormality Appearance) (Pt Warm) (Pt Warm) (Pt Warm) -Tenderness on Palpation (Smiley-wound No No No Skin Appearance) -Ulcer Cleansing Soap and Water Soap and Water Soap and Water -Foul Odor after Cleansing No No -Anesthetic Used 5% Lidocaine 5% Lidocaine 5% Lidocaine Gel Gel Gel -Wound Comment(s) did not measure Left Calf (cm) 33.7 35 Left Ankle (cm) 21 22 WC - Nurse 2 - General Ulcer CM Notes Start: 10/31/24 10:46 Freq: Status: Active Protocol: Activity Type Activity Date Activity User E-sign Co-sign Detail Recorded Client Recorded Date Recorded By Document 10/31/24 11:09 [id number] 10/31/24 11:13 Document 11/07/24 11:51 [id number] 11/07/24 11:52 Document 11/14/24 10:53 [id number] 11/14/24 10:55 10/31/24 11/07/24 11/14/24 11:09 11:51 10:53 Wound Center Nurse 2 #3 L Ant Ankle -Correct Patient No No -Correct Side, Site, Position No No -Correct Procedure No No -Procedure Performed No No No -Wound/Ulcer Outcome Not Healed Not Healed Healed- Epithelialized #1 LT PLANTAR post op -Procedure Performed No -Post Debridement (cm) - Length 0 -Post Debridement (cm) - Width 0 -Post Debridement (cm) - Depth 0 -Total Square (Post) (cm) 0 -Area of Debridement (cm) - Length 0 -Area of Debridement (cm) - Width 0 -Total Square (Area) (cm) 0 -Wound/Ulcer Outcome Healed- Epithelialized #2 LGreat toe dorsal -Time 11:12 11:51 10:53 -Correct Patient Yes Yes Yes -Correct Side, Site, Position Yes Yes Yes -Correct Procedure Yes Yes Yes -Procedure Performed Yes Yes Yes -Type of Procedure Debridement Debridement Debridement -Clinical Debridement Subcutaneous Subcutaneous Subcutaneous -Tissue Removed Subcutaneous Subcutaneous Subcutaneous -Post Debridement (cm) - Length 0.5 2.0 1 -Post Debridement (cm) - Width 0.4 0.7 0.3 -Post Debridement (cm) - Depth 0.2 0.1 0.1 -Total Square (Post) (cm) 0.20 1.40 0.3 -Area of Debridement (cm) - Length 0.5 2.0 1.0 -Area of Debridement (cm) - Width 0.4 0.7 0.3 -Total Square (Area) (cm) 0.20 1.40 0.30 -Tunneling No No -Undermining/Tunneling No No No -Circular Undermining No No No -Wound/Ulcer Outcome Not Healed Not Healed Not Healed -Ulcer Cleansing Rinsed/ Rinsed/ Rinsed/ Irrigated with Irrigated with Irrigated with Saline Saline Saline -Foul Odor after Cleansing No No No -Bioengineered Tissue No No No -Bleeding Controlled with Pressure Pressure Pressure -Treatment Response Procedure Procedure Procedure Tolerated Well Tolerated Well Tolerated Well -Offloading No No Yes -Type of Offloading Surgical Shoe -Debridement - Subq, 1st 20sq cm Yes Yes Yes Pain Scale: 0-10 Numeric Is Patient Pain Free? Yes Yes Yes WC - Nurse 3 - General Ulcer D/C NN Start: 10/31/24 10:46 Freq: Status: Active Protocol: Activity Type Activity Date Activity User E-sign Co-sign Detail Recorded Client Recorded Date Recorded By Document 10/31/24 11:27 KW [id number] 10/31/24 11:28 KW Document 11/07/24 12:00 CP [id number] 11/07/24 12:15 CP Document 11/14/24 10:59 JF [id number] 11/14/24 11:00 JF 10/31/24 11/07/24 11/14/24 11:27 12:00 10:59 Wound Care Center Nurse 3 #3 L Ant Ankle -Ulcer Cleansing Rinsed/ Irrigated with Saline -Other Dressing betadine -Primary Dressing Covered/Secured with Dry Gauze & Roll Gauze, Secured with Tape -Wound Comment(s) ant oint. dry gauze roll gauze, tape #2 LGreat toe dorsal -Ulcer Cleansing Rinsed/ Irrigated with Saline -Foul Odor after Cleansing No -Other Dressing betadine betadine and bandaid -Primary Dressing Covered/Secured with Dry Gauze Dry Gauze & Roll Gauze, Secured with Tape -Wound Comment(s) betadine Left -Tubular Bandage Single Layer Single Layer -Size of Tubigrip Used Size E Size D -Size D ($) 1 -Size E ($) 1 Pain Scale: 0-10 Numeric Is Patient Pain Free? Yes Yes Yes WC - Visit Discharge Discharge Condition Stable Stable Stable Ambulatory Status Ambulatory Ambulatory Ambulatory Transportation Private Auto Private Auto Private Auto Medication Reconcilliation completed & No No Yes provided to patient/care provider Clinical Summary of Care Provided Yes Yes Yes Assessment/Plan Assessment/Plan (1) Non-pressure chronic ulcer of other part of left foot with fat layer exposed: CODE(S): L97.522 - Non-pressure chronic ulcer of other part of left foot with fat layer exposed PLAN: Patient was examined and evaluated. All findings were discussed with the patient. All questions were answered to the patient's satisfaction. Excisional debridement down to including subcutaneous tissue with a number 3 mm dermal curette to the left hallux lateral aspect of full-thickness ulceration without incident. Predebridement measurement was 0.8 x 0.2 x 0.1 cm. Postdebridement measurement is 1.0 x 0.3 x 0.1 cm. The full-thickness wound was flushed with normal saline. Full-thickness wounds were dressed with Betadine paint and dry sterile dressing and compression wrap. The index finger to the right hand was dressed with triple antibiotic and sterile gauze. Patient will continue his Bactrim DS as prescribed. Educated the patient continue strict blood sugar control. Follow-up at the wound care center with Dr. Archibald in 2 week.
--- NOTE | 2024-11-15 09:17 | WC ---
PHOTO 11/14/24 LEFT ANTERIOR ANKLE
--- NOTE | 2024-11-15 09:18 | WC ---
PHOTO 11/14/24 LEFT GREAT TOE DORSAL
== END 2024-11-27 23:59 | disposition home or self-care (01) ==
LOC: WC 10:45
PROVIDERS: PCP Student in an Organized Health Care Education/Training Program; Referring Provider Podiatrist Foot & Ankle Surgery; Visit Provider Podiatrist Foot & Ankle Surgery
DX: L97.522 Non-pressure chronic ulcer of other part of left foot with fat layer exposed (principal)
CPT/HCPCS: 11042; 87070; 87075; 87077; 87186; 87205

== ENCOUNTER 2024-12-26 09:45 | Outpatient (RCR) | payer MEDICAID, SELFPAY ==
[2024-11-28 00:28] VITALS: BP 140/80; PULSE 92; RESP 18; TEMP 36.3
[2024-12-05 10:06] VITALS: BP 134/96; PULSE 90; RESP 16
--- NOTE | 2024-12-05 12:11 | PCM.WC.PN ---
History of Present Illness Date of Service: 11/14/24 Chief Complaint: Left foot wound History of Wound: Mr. Jefferson is a 49-year-old diabetic male presenting with care center today for follow-up evaluation of full-thickness wound to the plantar aspect of the left hallux. Patient received his MRI results last week. He is also here to evaluate the full-thickness wound. He had a TCC in place. Subjective Subjective Mr. Jefferson is a 49-year-old diabetic male presenting to wound care center today follow-up evaluation of left foot wound. Patient is wound is healed. He has been compliant with dressing changes. His blood sugars well-controlled. He still admits to some redness but improved. Denies trauma. Denies constitutional symptoms. No pedal plaints at this time. Objective Data Objective Data Vital Signs: Vital Signs Temp Pulse Resp BP 97.4 F L 90 16 134/96 H 11/28/24 00:28 12/05/24 10:06 12/05/24 10:06 12/05/24 10:06 Lab / Micro Data Micro: Microbiology 10/31/24 12:58 Ulcer, Decubitus - Left Foot Gram Stain - Final 10/31/24 12:58 Ulcer, Decubitus - Left Foot Wound Culture - Final Streptococcus group A Staphylococcus epidermidis 10/31/24 12:58 Ulcer, Decubitus - Left Foot Anaerobic Culture - Final Anaerobic cocci Physical Exam Narrative Vascular: DP and PT pulse are palpable. CFT is brisk. Blanchable erythema appreciated to dorsal aspect of the left foot, improving. Skin temperature is warm to warm from proximal ankles to distal digits to the left lower extremity. Neurological: Patient does not respond to painful stimuli. Protective station is absent. Dermatological: Full-thickness wound to the left hallux is now healed. Erythema is improving. Musculoskeletal: Muscle strength is 5 and 5 in all quadrants left lower extremity. No pain on palpation to full-thickness wound on the left foot. No pain with calf pressure. Debridement Note Debridement Note Post-Debridement Measurements and Additional Note: Post-Debridement Measurements/Treatment SHERRI - Nurse 1 - General Ulcer Assessment Start: 12/05/24 10:06 Freq: Status: Active Protocol: SHERRI.JANICEEXT Activity Type Activity Date Activity User E-sign Co-sign Detail Recorded Client Recorded Date Recorded By Document 12/05/24 10:06 MIGEL [id number] 12/05/24 10:09 12/05/24 10:06 - Today's Visit Information Type of service Follow-up Visit (Physician/LOGISTICS PROJECT MANAGER ) Arrival Mode Ambulatory Transfer Assistance None Patient Identification Verified (Name & Yes ) Patient Requires Transmission-Based No Precautions Vital Signs Pulse Rate (60-100) 90 Pulse Location Monitor Respiratory Rate (12-18) 16 Respiratory rate source Observation Blood Pressure (90/60-120/80) 134/96 H Blood Pressure Mean (mm Hg) 108 Source Monitor Position Sitting Blood Pressure Location Right Arm History Since Last Visit- (Skip if this is Patient's initial visit) Have you changed medications since your No last visit? Any new allergies or adverse reactions No Had a fall/change in ADL's that may No increase risk of falls Signs or symptoms of abuse and/or No neglect since last visit Have you been in the hospital since your No last visit? Has dressing in place as prescribed Yes Has compression in place as prescribed Yes Has offloadiing in place as prescribed N/A Experienced any changes in pain level or No management Pain Scale: 0-10 Numeric Is Patient Pain Free? Yes - Nurse 1 - General Ulcer Measurement Start: 12/05/24 10:06 Freq: Status: Active Protocol: Activity Type Activity Date Activity User E-sign Co-sign Detail Recorded Client Recorded Date Recorded By Document 12/05/24 10:06 MIGEL [id number] 12/05/24 10:09 12/05/24 10:06 Wound Center Nurse 1 #2 LGreat toe dorsal -Current Size (cm) - Length 0.1 -Current Size (cm) - Width 0.1 -Current Size (cm) - Depth 0.1 -Total Square Cm 0.01 -Exudate Amt None Present -Exudate Type Serosanguineous -Granulation Amt None Present (0 %) -Slough/Fibrin Yes -Necrosis Amt Medium (34-66%) -Texture (Smilye-wound Skin Appearance) Assessed -Moisture (Smiley-wound Skin Appearance) Assessed -Color (Smiley-wound Skin Appearance) Assessed -Temperature (Smiley-wound Skin No Abnormality Appearance) (Pt Warm) -Ulcer Cleansing Rinsed/ Irrigated with Saline -Anesthetic Used 5% Lidocaine Gel SHERRI - Nurse 2 - General Ulcer CM Notes Start: 12/05/24 10:06 Freq: Status: Active Protocol: Activity Type Activity Date Activity User E-sign Co-sign Detail Recorded Client Recorded Date Recorded By Document 12/05/24 10:16 JF [id number] 12/05/24 10:18 JF 12/05/24 10:16 Wound Center Nurse 2 -Correct Patient No -Correct Side, Site, Position No -Correct Procedure No -Procedure Performed No -Post Debridement (cm) - Length 0 -Post Debridement (cm) - Width 0 -Post Debridement (cm) - Depth 0 -Total Square (Post) (cm) 0 -Area of Debridement (cm) - Length 0 -Area of Debridement (cm) - Width 0 -Total Square (Area) (cm) 0 -Wound/Ulcer Outcome Healed- Epithelialized Pain Scale: 0-10 Numeric Is Patient Pain Free? Yes - Nurse 3 - General Ulcer D/C NN Start: 12/05/24 10:06 Freq: Status: Active Protocol: Activity Type Activity Date Activity User E-sign Co-sign Detail Recorded Client Recorded Date Recorded By Document 12/05/24 10:20 JF [id number] 12/05/24 10:20 12/05/24 10:20 Is Patient Pain Free? Yes - Visit Discharge Discharge Condition Stable Ambulatory Status Ambulatory Transportation Private Auto Medication Reconcilliation completed & Yes provided to patient/care provider Clinical Summary of Care Provided Yes Assessment/Plan Assessment/Plan (1) Non-pressure chronic ulcer of other part of left foot with fat layer exposed: CODE(S): L97.522 - Non-pressure chronic ulcer of other part of left foot with fat layer exposed PLAN: Patient was examined and evaluated. All findings were discussed with the patient. All questions were answered to the patient's satisfaction. Patient's full-thickness wound to left hallux is now healed. Educated patient continue to check his feet twice per day and apply lotion. Business card was given for the patient to follow-up in my office so we can see the patient and begin authorization for diabetic shoes and inserts. Note was given for the patient to remain off of work for at least 2 weeks for his medical insurance and then be reevaluated at follow-up in 2 weeks. 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 But the patient will be reevaluated accordingly. Follow-up at the wound care center with Dr. Archibald in 2 week.
--- NOTE | 2024-12-06 12:12 | WC ---
PHOTO 12/05/24 LEFT GREAT TOE
[2024-12-26 09:49] VITALS: BP 136/85; PULSE 82; RESP 20; TEMP 36.7
--- NOTE | 2024-12-26 10:19 | PCM.WC.PN ---
History of Present Illness Date of Service: 11/14/24 Chief Complaint: Left foot wound History of Wound: Mr. Jefferson is a 49-year-old diabetic male presenting with care center today for follow-up evaluation of full-thickness wound to the plantar aspect of the left hallux. Patient received his MRI results last week. He is also here to evaluate the full-thickness wound. He had a TCC in place. Subjective Subjective Mr. Hoff is a 49-year-old male presenting to the wound care center today for follow-up evaluation of full-thickness wound to the left great toe. He has been compliant with dressing changes as well as with blood sugar management. Wearing compression as tolerated. He states his wound is healed. He is waiting to get into my office for diabetic shoes. Denies trauma. Denies constitutional symptoms. No other pedal complaints at this time. Objective Data Objective Data Vital Signs: Vital Signs Temp Pulse Resp BP 98.1 F 82 20 H 136/85 H 12/26/24 09:49 12/26/24 09:49 12/26/24 09:49 12/26/24 09:49 Lab / Micro Data Micro: Microbiology 10/31/24 12:58 Ulcer, Decubitus - Left Foot Gram Stain - Final 10/31/24 12:58 Ulcer, Decubitus - Left Foot Wound Culture - Final Streptococcus group A Staphylococcus epidermidis 10/31/24 12:58 Ulcer, Decubitus - Left Foot Anaerobic Culture - Final Anaerobic cocci Physical Exam Narrative Vascular: DP and PT pulse are palpable. CFT is brisk. Blanchable erythema appreciated to dorsal aspect of the left foot, improving. Skin temperature is warm to warm from proximal ankles to distal digits to the left lower extremity. Neurological: Patient does not respond to painful stimuli. Protective station is absent. Dermatological: Full-thickness wound to the left hallux is now healed. Erythema is improving. Musculoskeletal: Muscle strength is 5 and 5 in all quadrants left lower extremity. No pain on palpation to full-thickness wound on the left foot. No pain with calf pressure. Debridement Note Debridement Note Post-Debridement Measurements and Additional Note: Post-Debridement Measurements/Treatment SHERRI - Nurse 1 - General Ulcer Assessment Start: 12/05/24 10:06 Freq: Status: Active Protocol: CHARMAINE Activity Type Activity Date Activity User E-sign Co-sign Detail Recorded Client Recorded Date Recorded By Document 12/05/24 10:06 KW [id number] 12/05/24 10:09 KW Document 12/26/24 09:49 DL [id number] 12/26/24 09:52 DL 12/05/24 12/26/24 10:06 09:49 - Today's Visit Information Type of service Follow-up Visit Follow-up Visit (Physician/HEAD KNITTING MACHINE FIXER (Physician/HEAD KNITTING MACHINE FIXER ) ) Arrival Mode Ambulatory Ambulatory Transfer Assistance None None Patient Identification Verified (Name & Yes Yes ) Patient Requires Transmission-Based No No Precautions Vital Signs Temperature (97.8 F-99.1 F) 98.1 F Temperature Source Temporal Pulse Rate (60-100) 90 82 Pulse Location Monitor Monitor Respiratory Rate (12-18) 16 20 H Respiratory rate source Observation Observation Blood Pressure (90/60-120/80) 134/96 H 136/85 H Blood Pressure Mean (mm Hg) 108 102 Source Monitor Monitor Position Sitting Blood Pressure Location Right Arm History Since Last Visit- (Skip if this is Patient's initial visit) Have you changed medications since your No No last visit? Any new allergies or adverse reactions No No Had a fall/change in ADL's that may No No increase risk of falls Signs or symptoms of abuse and/or No No neglect since last visit Have you been in the hospital since your No No last visit? Has dressing in place as prescribed Yes Yes Has compression in place as prescribed Yes N/A Has offloadiing in place as prescribed N/A Yes Experienced any changes in pain level or No No management Left Footwear Surgical Shoe with pressure relief insole Pain Scale: 0-10 Numeric Is Patient Pain Free? Yes Yes - Nurse 1 - General Ulcer Measurement Start: 12/05/24 10:06 Freq: Status: Active Protocol: Activity Type Activity Date Activity User E-sign Co-sign Detail Recorded Client Recorded Date Recorded By Document 12/05/24 10:06 KW [id number] 12/05/24 10:09 KW Document 12/26/24 09:49 DL [id number] 12/26/24 09:52 DL 12/05/24 12/26/24 10:06 09:49 Wound Center Nurse 1 #2 LGreat toe dorsal -Current Size (cm) - Length 0.1 0 -Current Size (cm) - Width 0.1 0 -Current Size (cm) - Depth 0.1 0 -Total Square Cm 0.01 0 -Exudate Amt None Present None Present -Exudate Type Serosanguineous -Wound Margin Thickened -Granulation Amt None Present (0 Large (67-100%) %) -Granulation Quality Pale,Diggins -Slough/Fibrin Yes -Necrosis Amt Medium (34-66%) None Present (0 %) -Structure Exposed N/A -Texture (Smiley-wound Skin Appearance) Assessed Scarring -Moisture (Smiley-wound Skin Appearance) Assessed Dry/Scaly -Color (Smiley-wound Skin Appearance) Assessed No Abnormality -Temperature (Smiley-wound Skin No Abnormality No Abnormality Appearance) (Pt Warm) (Pt Warm) -Tenderness on Palpation (Smiley-wound No Skin Appearance) -Ulcer Cleansing Rinsed/ Soap and Water Irrigated with Saline -Foul Odor after Cleansing No -Anesthetic Used 5% Lidocaine Gel WC - Nurse 2 - General Ulcer CM Notes Start: 12/05/24 10:06 Freq: Status: Active Protocol: Activity Type Activity Date Activity User E-sign Co-sign Detail Recorded Client Recorded Date Recorded By Document 12/05/24 10:16 [id number] 12/05/24 10:18 Document 12/26/24 10:15 [id number] 12/26/24 10:15 12/05/24 12/26/24 10:16 10:15 Wound Center Nurse 2 #2 LGreat toe dorsal -Correct Patient No No -Correct Side, Site, Position No No -Correct Procedure No No -Procedure Performed No No -Post Debridement (cm) - Length 0 0 -Post Debridement (cm) - Width 0 0 -Post Debridement (cm) - Depth 0 0 -Total Square (Post) (cm) 0 0 -Area of Debridement (cm) - Length 0 0 -Area of Debridement (cm) - Width 0 0 -Total Square (Area) (cm) 0 0 -Wound/Ulcer Outcome Healed- Healed- Epithelialized Epithelialized Pain Scale: 0-10 Numeric Is Patient Pain Free? Yes Yes - Nurse 3 - General Ulcer D/C NN Start: 12/05/24 10:06 Freq: Status: Active Protocol: Activity Type Activity Date Activity User E-sign Co-sign Detail Recorded Client Recorded Date Recorded By Document 12/05/24 10:20 [id number] 12/05/24 10:20 JF Document 12/26/24 10:16 JF [id number] 12/26/24 10:16 JF 12/05/24 12/26/24 10:20 10:16 Pain Scale: 0-10 Numeric Is Patient Pain Free? Yes Yes WC - Visit Discharge Discharge Condition Stable Stable Ambulatory Status Ambulatory Ambulatory Transportation Private Auto Private Auto Medication Reconcilliation completed & Yes Yes provided to patient/care provider Clinical Summary of Care Provided Yes Yes Assessment/Plan Assessment/Plan (1) Non-pressure chronic ulcer of other part of left foot with fat layer exposed: CODE(S): L97.522 - Non-pressure chronic ulcer of other part of left foot with fat layer exposed PLAN: Patient was examined and evaluated. All findings were discussed with the patient. All questions were answered to the patient's satisfaction. Patient's full-thickness wound to left hallux is now healed. Educated patient continue to check his feet twice per day and apply lotion. Patient will be discharged from wound care center today and follow-up in private office for continued care and diabetic shoes.
== END 2024-12-28 23:59 | disposition home or self-care (01) ==
LOC: WC 09:45
PROVIDERS: PCP Student in an Organized Health Care Education/Training Program; Referring Provider Podiatrist Foot & Ankle Surgery; Visit Provider Podiatrist Foot & Ankle Surgery
DX: E11.621 Type 2 diabetes mellitus with foot ulcer (principal); L97.522 Non-pressure chronic ulcer of other part of left foot with fat layer exposed
CPT/HCPCS: 99213; G0463